=== PATIENT | male | born 1940 | race Caucasian/White ===

== ENCOUNTER 2017-01-07 08:40 | Inpatient (IN) ==
[2017-01-07] MEDS ORDERED: ENOXAPARIN 100 MG/ML SYRINGE SUBCUT STA (08:54)
[2017-01-07] MEDS ORDERED: ASPIRIN 325 MG TABLET PO STA (08:54)
--- NOTE | 2017-01-07 08:58 | EKG Report ---
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
--- NOTE | 2017-01-07 09:20 | XRay Report ---
Portable chest Exam date: 01/07/2017 8:54 AM Indication: Shortness of breath, cough Comparison: October 17, 2015 Findings: Cardiomediastinal contours are stable with sternotomy wires and midline. Coarsened interstitial markings, no superimposed consolidative or congestive process. No acute osseous abnormalities. Visualized upper abdomen demonstrates no acute pathology. Impression: No acute cardiopulmonary findings PROCEDURE INTERPRETED AT [facility] DEPARTMENT OF RADIOLOGY Final Report Signed by: Bc Figueroa
[2017-01-07 09:21] LABS: Basophils % 0.7 % (0.0-0.8); Eosinophils # 0.1 10*3/uL (0.0-0.87); Eosinophils % 1.9 % (0.00-10.9); Hematocrit 31.7 VOL% (42.0-52.0); Hemoglobin 10.3 GM/DL (14.0-18.0); Immature Granulocytes % 0.5 %; Immature Granulocytes Absolute 0.02 #; Lymphocytes # 1.1 10*3/uL (1.4-4.0); Lymphocytes % 25.6 % (21.2-54.2); Mean Corpuscular HGB Conc 32.5 GM/DL (32-36); Mean Corpuscular Hemoglobin 26 PG (27-34); Mean Corpuscular Volume 79.8 FL (87-102); Mean Platelet Volume 10.5 FL (9.6-12.0); Monocytes # 0.4 10*3/uL (0.11-0.8); Monocytes % 9.1 % (1.7-12.7); Neutrophils # 2.7 10*3/uL (1.4-7.4); Neutrophils % 62.2 % (38.7-73.9); Red Blood Count 3.97 MC/CUMM (3.8-5.5); Red Cell Distribution Width 15.6 % (9.3-17.3); White Blood Count 4.3 T/CUMM (4-12)
[2017-01-07 09:23] LABS: Platelet Count 77 T/CUMM (130-400)
[2017-01-07] MEDS ORDERED: ACETAMINOPHEN 325 MG TABLET PO PRN (09:38)
[2017-01-07] MEDS ORDERED: BISACODYL 5 MG TABLET PO PRN (09:38)
[2017-01-07] MEDS ORDERED: MAGNESIUM SULF RIDER 2 GM in PREMIX 1 EACH IV PRN (09:38)
[2017-01-07 09:43] LABS: Hypochromasia 1+; Microcytosis 1+
[2017-01-07 09:44] LABS: Ovalocytes Few; Platelet Estimate Decreased
[2017-01-07] MEDS ORDERED: ENOXAPARIN 100 MG/ML SYRINGE SUBCUT ONE (09:47)
[2017-01-07] MEDS ORDERED: ASPIRIN 325 MG TABLET ONE (09:47)
[2017-01-07 09:56] LABS: Albumin 3.1 G/DL (3.4-5.0); Bilirubin,Total 0.4 MG/DL (0.2-1.0); Calcium 8.2 MG/DL (8.5-10.1); Magnesium 2.3 MG/DL (1.8-2.4); Osmolality,Calculated 286.7 MOS/KG (273-304); Total Protein 6.3 G/DL (6.4-8.3)
[2017-01-07] MEDS ORDERED: METOPROLOL SUCCINATE XL 50 MG TABLET PO SCH (10:00)
[2017-01-07] MEDS ORDERED: ASPIRIN EC 325 MG TABLET PO SCH (10:00)
[2017-01-07 10:05] LABS: INR 1.1
--- NOTE | 2017-01-07 10:08 | Emergency Department Note ---
Violet Doss Brittany, am scribing for, and in the presence of, Pablo Anaya MD 09:09. Héctor Doss Phillip K, MD, personally performed the services described in this documentation, ascribed by Mirlande Lazo in my presence, and it is both accurate and complete . Arrival - Arrival Chief Complaint: Chest Pain Stated Complaint: chest pain radiating down left arm ED Nursing Triage Note: c/o sharp pain in lt chest going into lt shoulder onset friday. states its getting to where his nitros dont help any more Mode of Arrival: Wheelchair Limitations: No Limitations Source: Patient - History of Present Illness HPI Narrative: This is a 76 y/o white male,who presents to the ED with c/o CP which started earlier this morning. He states the chest pain is to the left sided chest. He describes the chest pain as a sharp pain. He notes the chest pain radiates into his left shoulder. He denies any vomiting or dyspnea but notes nausea and diaphoresis. He states he took Nitro x 3 which did not help. He states he normally takes a ASA but has not today. He states deeply breathing makes the chest pain worse. His sander setter is Dr. Hummel. He notes a dry cough as well. Pt has no other complaints/pain in the ED at this time. Pt has a PMHx of CAD, HTN, CA, CVA, IDDM, RA, cerebrovascular disease, dysliipidemia, and GOUT. Pt has had a triple bypass, cardiac cath with stents, eye surgery, hernia repair, spinal surgery, orthopedic surgery, kidney stents, and cystoscopy. Pt has a family medical Hx of cancer, diabetes, HTN, and stroke. Pt denies a social Hx. Onset (ago): day(s) (Started 4 days ago) Consistency: constant Severity: moderate Quality: sharp Allergies/Adverse Reactions: Allergies Allergy/AdvReac Type Severity Reaction Status Date / Time Penicillins Allergy Severe Swelling Verified 07/24/15 07:08 of Lip/Tongue/Throat Home Medications: Home Medications Medication Instructions Recorded Confirmed Type Aspirin [Ecotrin] 81 mg PO DAILY 05/03/15 10/18/15 History Citalopram [CeleXA] 30 mg PO DAILY 05/03/15 10/18/15 History Cyanocobalamin Inj [Vitamin B12 1,000 mcg IM Q30D 05/03/15 10/17/15 History Inj] Docusate Sodium Cap [Colace Cap] 100 mg PO DAILY 05/03/15 10/18/15 History Gabapentin Cap/Tab [Neurontin 600 mg PO TID 05/03/15 10/18/15 History Cap/Tab] Magnesium Oxide 400 mg PO BID 05/03/15 10/18/15 History Mirtazapine [Remeron] 30 mg PO BEDTIME 05/03/15 10/18/15 History Oxycodone HCl/Acetaminophen 1 each PO TID PRN 05/03/15 10/17/15 History [Percocet 10-325 mg Tablet] Rosuvastatin [Crestor] 20 mg PO BEDTIME 05/03/15 10/18/15 History Zinc 50 mg PO BEDTIME 05/03/15 10/18/15 History oxyCODONE ER [OxyCONTIN] 10 mg PO Q12HR 05/03/15 10/18/15 History tiZANidine [Zanaflex] 4 mg PO BID PRN 05/03/15 10/18/15 History Cetirizine Tab [ZyrTEC Tab] 10 mg PO DAILY PRN 05/25/15 10/17/15 History Fluticasone 50 Mcg Nasal [place] 2 spray BOTH NARES DIRECTED 05/25/15 10/17/15 History [Flonase Nasal [place]] Insulin Regular [HumuLIN R] 1 unit SUBCUT Q6H PRN 05/25/15 10/17/15 History Meclizine [Antivert] 25 mg PO QID PRN 05/25/15 10/17/15 History Nitroglycerin Sl Tab [Nitrostat] 0.4 mg SL Q5M PRN 05/25/15 10/17/15 History Pantoprazole Tab [Protonix Tab] 40 mg PO DAILY 05/25/15 10/18/15 History Promethazine Tab [Phenergan Tab] 25 mg PO Q4H PRN 05/25/15 10/17/15 History Apixaban [Eliquis] 5 mg PO BID 07/19/15 10/18/15 History Diltiazem Tab [Cardizem Tab] 1 tablet PO BID W/MEALS 07/19/15 10/18/15 History Insulin Glargine,Hum.rec.anlog 25 units SUBCUT BEDTIME 07/19/15 10/17/15 History [Lantus SoloStar] Insulin NPH Hum/Reg Insulin Hm 30 unit SUBCUT QPM 07/19/15 10/17/15 History [NovoLIN 70/30] Insulin NPH Hum/Reg Insulin Hm 55 unit SUBCUT QAM 07/19/15 10/17/15 History [NovoLIN 70/30] Metoprolol Tartrate Tab [Lopressor 50 mg PO BID 07/19/15 10/18/15 History Tab] Ondansetron [Ondansetron Odt] 4 mg PO DIRECTED 07/19/15 10/17/15 History Ranolazine [Ranexa] 500 mg PO BID 07/19/15 10/18/15 History HYDROcodone/ACETAMIN 7.5-325 1 - 2 tablet PO Q4H PRN #30 tablet 07/24/15 Rx [[place] 7.5-325] Oxybutynin [Ditropan] 5 mg PO BID 10/18/15 10/18/15 History Sennosides [Senna] 8.6 mg PO DAILY PRN 10/18/15 10/18/15 History clonazePAM [Clonazepam] 1 mg PO TID PRN 10/18/15 10/18/15 History Review of System - Review of System 12 point system: reviewed and no additional remarkable complaints except as stated - Review of System Constitutional: Present: diaphoresis Respiratory: Present: cough Cardiovascular: Present: chest pain. Absent: dyspnea on exertion Gastrointestinal: Present: nausea. Absent: vomiting Medical,Surgical,& Family Hx - Medical History Cardio: History of: Cardiac Dysrhythmia (paroxysmal atrial fibrillation), Cerebrovascular Disease, CAD, Hypertension, [place], Cardiovascular Problems (TRIPLE BYPASS DR KM HUMMEL) Psychological: History of: Anxiety Disorders Neurology: History of: Cerebrovascular Accident (), Peripheral Neuropathy No history of: Seizures HEENT: History of: Eye Problem (GLASSES), Dental Problems (FULL SET) Endocrine: History of: Diabetes Mellitus (IDDM), Dyslipidemia Rheumatology: History of;: Gout, Rheumatoid Arthritis (RIGHT KNEE) Respiratory: History of: Obstructive Sleep Apnea (CPAP) Comment Only: Respiratory Problems (Pt has CPAP AT HOME BUT DOES NOT USE IT VERY MUCH) Genitourinary: History of: Kidney Stones Gastrointestinal: History of: GERD Musculoskeletal: History of: Back/Neck Problems Hematology: History of: Bleeding Problems (PT TAKES ELIQUIS) - Surgical History Cardiac Surgeries: Sugical HX of: Cardiac Catheterization, Cardiac Surgery HEENT Surgeries: Surgical HX of: Eye Surgery (BILATERAL CATARACT SURGERY) Abdominal Surgeries: Surgical HX of: Hernia Repair Reproductive Surgeries: Surgical HX of;: Cystoscopy Orthopedic Surgeries: Surgical HX of;: Implanted Devices (HEART STENT, KIDNEY STENT), Orthopedic Surgery (CARPAL TUNNEL), Spinal Surgery (LOWER BACK SURGERY, INJECTIONS WITH DR SHEIKH) - Family History Family History: Reports;: Family Cancer (FATHER), Family Diabetes (BROTHER), Family Hypertension (BROTHER), Family Stroke (FATHER TIA) Denies;: Family Heart Disease - Social History Smoking Status: Never smoker Frequency of Alcohol Use: None Type of Drug Use: None Exam Vital Signs: Vital Signs Temperature 97.8 F 01/07/17 08:43 Pulse Rate 71 01/07/17 09:50 Respiratory Rate 20 01/07/17 09:50 Blood Pressure 92/52 01/07/17 09:50 O2 Sat by Pulse Oximetry 98 01/07/17 09:50 - General General appearance: alert, in no apparent distress - Head Head exam: Present: atraumatic, normocephalic, normal inspection - Eye Eye exam: Present: PERRL, EOMI, other (Pale conjuntvia) - ENT ENT exam: Present: mucous membranes dry - Neck Neck exam: Present: normal inspection, full ROM, trachea midline. Absent: tenderness - Chest Chest inspection: Present: normal inspection, symmetric chest wall rise. Absent : tenderness - Respiratory Respiratory exam: Present: normal lung sounds bilaterally. Absent: respiratory distress - Cardiovascular Cardiovascular exam: Present: regular rate, normal rhythm, normal heart sounds. Absent: murmur, rubs, gallop, clicks, JVD - Abdominal Exam Abdominal exam: Present: soft, normal bowel sounds. Absent: distention, tenderness, guarding, rebound, rigidity - Rectal Exam Rectal exam: Present: deferred - Extremities Exam Extremities exam: Present: normal inspection, full ROM, normal capillary refill. Absent: tenderness, pedal edema, joint swelling, calf tenderness - Back Exam Back exam: Present: normal inspection, full ROM. Absent: tenderness, muscle spasm, rashes - Neurological Exam Neurological exam: Present: alert, oriented X3, CN II-XII intact. Absent: motor sensory deficit - Psychiatric Psychiatric exam: Present: normal affect, normal mood. Absent: depressed, agitated, anxious, flat affect, manic - Skin Skin exam: Present: warm, dry, intact, normal color. Absent: rash, cyanosis, diaphoresis, erythema, pallor, mottled Results - Labs CBC & BMP: 01/07/17 09:09 01/07/17 09:09 Lab Results: I have reviewed the patients labs Labs: Laboratory Tests 01/07/17 09:09 WBC 4.3 RBC 3.97 Hgb 10.3 L Hct 31.7 L MCV 79.8 L MCH 26 L MCHC 32.5 RDW 15.6 Plt Count 77 L MPV 10.5 Neut % (Auto) 62.2 Lymph % (Auto) 25.6 [place] % (Auto) 9.1 Eos % (Auto) 1.9 Baso % (Auto) 0.7 Neut # (Auto) 2.7 Lymph # (Auto) 1.1 L [place] # (Auto) 0.4 Eos # (Auto) 0.1 Baso # (Auto) 0.0 Immature Gran % 0.5 Nucleated RBC % 0.0 Immature Gran # 0.02 Nucleated RBCs # 0.00 Immature Plt Fraction 0.0 Laboratory Tests 01/07/17 01/07/17 01/07/17 09:09 09:09 09:09 Platelet Estimate Decreased Hypochromasia 1+ Microcytosis 1+ Ovalocytes Few Sodium 138 Potassium 4.0 Chloride 103 Carbon Dioxide 31 Anion Gap 8.0 BUN 26 H Creatinine 1.90 H GFR Calculation 40 BUN/Creatinine Ratio 13.00 Glucose 217 H Calculated Osmolality 286.7 Calcium 8.2 L Magnesium 2.3 Total Bilirubin 0.40 AST 31 ALT 14 L Alkaline Phosphatase 71 Troponin I 2.300 H Total Protein 6.3 L Albumin 3.1 L Globulin 3.2 Albumin/Globulin Ratio 0.9 L - Diagnostic Findings Procedure: Chest x-ray: report reviewed by me (Nothing acute. ) Disposition Clinical Impression: Non-ST elevation CA (NSTEMI) Case discussed with: patient
[2017-01-07] MEDS ORDERED: LIDOCAINE 1%/EPI INJ 20 ML VIAL ONE (10:13)
[2017-01-07] MEDS ORDERED: HEPARIN/NACL 0.9% 2 UNITS/ML 1,000 ML IV ONE (10:13)
[2017-01-07 10:14] LABS: Risk Ratio 3.97
--- NOTE | 2017-01-07 10:25 | Cardiology History & Physical ---
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 Assessment and plan: SEE PLAN OF CARE LISTED BELOW Current Visit: Yes (4) Anemia Status: Chronic Assessment and plan: SEE PLAN OF CARE LISTED BELOW Current Visit: Yes (5) Thrombocytopenia Status: Chronic Assessment and plan: SEE PLAN OF CARE LISTED BELOW Current Visit: Yes (6) Essential hypertension Status: Chronic Assessment and plan: SEE PLAN OF CARE LISTED BELOW Current Visit: No (7) Coronary artery disease Status: Chronic Assessment and plan: SEE PLAN OF CARE LISTED BELOW Current Visit: No (8) Chronic renal insufficiency, stage III (moderate) Status: Chronic Assessment and plan: SEE PLAN OF CARE LISTED BELOW Current Visit: No (9) Atrial fibrillation Status: Chronic Assessment and plan: SEE PLAN OF CARE LISTED BELOW Current Visit: No (10) Non-ST elevation (NSTEMI) myocardial infarction Status: Acute Assessment and plan: SEE PLAN OF CARE LISTED BELOW Current Visit: Yes History of Present Illness Chief complaint: Chest pain, known CAD 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 DOHERTY Patient is being seen in the emergency department Mr. Oliver, 76WM, with risk factors significant for: age, known CAD (S/P CABG 3 several years ago, report unavailable), hypertension, dyslipidemia, diabetes, CVA, sedentary lifestyle. History of atrial fibrillation for which he takes Eliquis for stroke prevention. Presented to the ED of [facility] January 07, 2017 with complaints of chest pain. Described chest pain as sharp, located in the left side radiating into his left shoulder. This has been occurring intermittently overnight, lasting approximately 2-3 minutes and is not associated with nausea, vomiting, diaphoresis or dyspnea. Can identify no aggravating factors and nitroglycerin did improve the discomfort. Rates the discomfort as a 7 on a scale of 10 at its worst, currently chest pain-free. Upon evaluation in the ER, patient was noted to have ST depression laterally with a right bundle branch block, troponin is 2.3. Creatinine is 1.9, patient is anemic with hemoglobin hematocrit of 10.3 and 31.7 respectively. Platelet count 77. Upon review, patient has a long-standing history of thrombocytopenia her labs. Will further investigate his knee during hospital stay. Dr. Asher has seen and evaluated the patient believes patient needs cardiac catheterization. At this time, patient will be kept without food or drink and we will prepare him for heart catheterization today. IMPRESSION/PLAN: 1. NSTEMI - patient has received aspirin, Lovenox, beta-blockade, nitroglycerin. Continue lipid-lowering agent. Suspect he has not been on an MARLENE inhibitor in the past for fear of worsening renal insufficiency. 2. KNOWN CAD STATUS POST CABG 3 - unfortunately, cannot access prior heart catheterization reports or CABG report. 3. HYPERTENSION - continue beta-blockade. Will adjust medications accordingly during the hospital stay. Unfortunately, cannot tolerate an MARLENE inhibitor due to fear of worsening his renal insufficiency. 4. DYSLIPIDEMIA - LDL 74. Continue Crestor. 5. DIABETES - sliding scale insulin and holding metformin should patient need cardiac catheterization 6. ATRIAL FIBRILLATION - rate controlled. Holding Eliquis at this point but he did have a dose last evening 7. HIGH RISK MEDICATION (ELIQUIS) - holding this morning's Eliquis for [facility] today 8. ANEMIA - anemia profile. Stool for occult blood. Follow CBC 9. THROMBOCYTOPENIA - Long standing history as listed in labs in [facility]. 10. CKD, STAGE III - follow BMP daily. Avoid MARLENE for fear of worsening renal insufficiency. Home Medications Medication Instructions Recorded Confirmed Type Aspirin [Ecotrin] 81 mg PO DAILY 05/03/15 10/18/15 History Citalopram [CeleXA] 30 mg PO DAILY 05/03/15 10/18/15 History Cyanocobalamin Inj [Vitamin B12 1,000 mcg IM Q30D 05/03/15 10/17/15 History Inj] Docusate Sodium Cap [Colace Cap] 100 mg PO DAILY 05/03/15 10/18/15 History Gabapentin Cap/Tab [Neurontin 600 mg PO TID 05/03/15 10/18/15 History Cap/Tab] Magnesium Oxide 400 mg PO BID 05/03/15 10/18/15 History Mirtazapine [Remeron] 30 mg PO BEDTIME 05/03/15 10/18/15 History Oxycodone HCl/Acetaminophen 1 each PO TID PRN 05/03/15 10/17/15 History [Percocet 10-325 mg Tablet] Rosuvastatin [Crestor] 20 mg PO BEDTIME 05/03/15 10/18/15 History Zinc 50 mg PO BEDTIME 05/03/15 10/18/15 History oxyCODONE ER [OxyCONTIN] 10 mg PO Q12HR 05/03/15 10/18/15 History tiZANidine [Zanaflex] 4 mg PO BID PRN 05/03/15 10/18/15 History Cetirizine Tab [ZyrTEC Tab] 10 mg PO DAILY PRN 05/25/15 10/17/15 History Fluticasone 50 Mcg Nasal [place] 2 spray BOTH NARES DIRECTED 05/25/15 10/17/15 History [Flonase Nasal [place]] Insulin Regular [HumuLIN R] 1 unit SUBCUT Q6H PRN 05/25/15 10/17/15 History Meclizine [Antivert] 25 mg PO QID PRN 05/25/15 10/17/15 History Nitroglycerin Sl Tab [Nitrostat] 0.4 mg SL Q5M PRN 05/25/15 10/17/15 History Pantoprazole Tab [Protonix Tab] 40 mg PO DAILY 05/25/15 10/18/15 History Promethazine Tab [Phenergan Tab] 25 mg PO Q4H PRN 05/25/15 10/17/15 History Apixaban [Eliquis] 5 mg PO BID 07/19/15 10/18/15 History Diltiazem Tab [Cardizem Tab] 1 tablet PO BID W/MEALS 07/19/15 10/18/15 History Insulin Glargine,Hum.rec.anlog 25 units SUBCUT BEDTIME 07/19/15 10/17/15 History [Lantus SoloStar] Insulin NPH Hum/Reg Insulin Hm 30 unit SUBCUT QPM 07/19/15 10/17/15 History [NovoLIN 70/30] Insulin NPH Hum/Reg Insulin Hm 55 unit SUBCUT QAM 07/19/15 10/17/15 History [NovoLIN 70/30] Metoprolol Tartrate Tab [Lopressor 50 mg PO BID 07/19/15 10/18/15 History Tab] Ondansetron [Ondansetron Odt] 4 mg PO DIRECTED 07/19/15 10/17/15 History Ranolazine [Ranexa] 500 mg PO BID 07/19/15 10/18/15 History HYDROcodone/ACETAMIN 7.5-325 1 - 2 tablet PO Q4H PRN #30 tablet 07/24/15 Rx [[place] 7.5-325] Oxybutynin [Ditropan] 5 mg PO BID 10/18/15 10/18/15 History Sennosides [Senna] 8.6 mg PO DAILY PRN 10/18/15 10/18/15 History clonazePAM [Clonazepam] 1 mg PO TID PRN 10/18/15 10/18/15 History Allergies Allergy/AdvReac Type Severity Reaction Status Date / Time Penicillins Allergy Severe Swelling Verified 07/24/15 07:08 of Lip/Tongue/Throat Review of systems: REVIEW OF SYSTEMS: - Constitutional Constitutional: Present: Fatigue. Absent: syncope, anorexia, night sweats - EENT Eyes: Absent: blurry vision, loss of vision, diplopia Ears: Absent: decreased hearing, ear pain, ear discharge - Cardiovascular Cardiovascular: Present: chest pain with exertion and at rest. Chronic dyspnea on exertion. Denies edema, palpitations. Absent: chest pain with deep breath, claudication - Respiratory Respiratory: Present: [place], denies cough. Absent: wheezing, hemoptysis, change in phlegm color - Gastrointestinal Gastrointestinal: Denies: constipation. Absent: abdominal pain, hematemesis, hematochezia, melena, change in bowel habits, nausea - Genitourinary Genitourinary: Absent: difficulty urinating, dysuria, urinary hesitancy, flank pain - Musculoskeletal Musculoskeletal: Present: back pain Absent: joint swelling, muscle cramps, muscle weakness - Neurological Neurological: Present: normal gait without frequent falls. Absent: dizziness, hemiparesis - Psychiatric Psychiatric: Absent: anxiety, depression, difficulty concentrating - Endocrine Endocrine: Present: fatigue. Absent: cold intolerance, heat intolerance, polyuria, polyphagia, polydipsia - Hematologic/Lymphatic Hematologic/Lymphatic: Present: easy bruising. Absent: easy bleeding -Integumentary Integumentary: Absent: lesions, rashes, skin breakdown Medical,Surgical,& Family Hx - Medical History Cardio: History of: Cardiac Dysrhythmia (paroxysmal atrial fibrillation), Cerebrovascular Disease, CAD, Hypertension, [place], Cardiovascular Problems (TRIPLE BYPASS DR KM DOHERTY) Psychological: History of: Anxiety Disorders Neurology: History of: Cerebrovascular Accident (), Peripheral Neuropathy No history of: Seizures HEENT: History of: Eye Problem (GLASSES), Dental Problems (FULL SET) Endocrine: History of: Diabetes Mellitus (IDDM), Dyslipidemia Rheumatology: History of;: Gout, Rheumatoid Arthritis (RIGHT KNEE) Respiratory: History of: Obstructive Sleep Apnea (CPAP) Comment Only: Respiratory Problems (Pt has CPAP AT HOME BUT DOES NOT USE IT VERY MUCH) Genitourinary: History of: Kidney Stones Gastrointestinal: History of: GERD Musculoskeletal: History of: Back/Neck Problems Hematology: History of: Bleeding Problems (PT TAKES ELIQUIS) - Surgical History Cardiac Surgeries: Sugical HX of: Cardiac Catheterization, Cardiac Surgery HEENT Surgeries: Surgical HX of: Eye Surgery (BILATERAL CATARACT SURGERY) Abdominal Surgeries: Surgical HX of: Hernia Repair Reproductive Surgeries: Surgical HX of;: Cystoscopy Orthopedic Surgeries: Surgical HX of;: Implanted Devices (HEART STENT, KIDNEY STENT), Orthopedic Surgery (CARPAL TUNNEL), Spinal Surgery (LOWER BACK SURGERY, INJECTIONS WITH DR SHEIKH) - Family History Family History: Reports;: Family Cancer (FATHER), Family Diabetes (BROTHER), Family Hypertension (BROTHER), Family Stroke (FATHER TIA) Denies;: Family Heart Disease - Social History Smoking Status: Never smoker Have you smoked in the last 12 months: No Frequency of Alcohol Use: None Type of Drug Use: None Cardiology Physical Exam - Constitutional Vitals: Vital Signs Temp Pulse Resp BP Pulse Ox 97.8 F 71 20 92/52 98 01/07/17 08:43 01/07/17 09:50 01/07/17 09:50 01/07/17 09:50 01/07/17 09:50 Intake and Output 01/06/17 01/07/17 01/07/17 23:59 07:59 15:59 Other: Weight 90.718 kg Patient Weight 01/07/17 23:59 Weight 90.718 kg Exam: General: [Appears well with no apparent distress.] [Pleasant and cooperative. ] [Appears comfortable.] HEENT: [PERRL, normocephalic, atraumatic. Mucous membranes moist. No jaundice noted. Conjunctiva moist and clear, sclerae anicteric] Neck: No JVD/HJR, no thyromegaly or lymphadenopathy noted. No carotid bruit appreciated Cardiac: [Regular rate and rhythm.] [No murmur rub or gallop.] Lungs: [Clear to auscultation without accessory muscle use to assist the respiratory pattern.] Oxygen in use via nasal cannula Abdomen: Soft, bowel sounds normoactive. Nontender and nondistended. No abdominal bruit or thrill noted. No masses noted. Musculoskeletal: No fluid collection. Decreased range of motion is noted. Extremities: No clubbing, cyanosis noted. [ No edema noted.] Upper extremity pulses 2+. Lower extremity pulses 2+. Capillary refill less than 3 seconds. Skin: No unusual lesions or rashes. No skin breakdown appreciated. Neuro: Awake, alert and oriented 3. Moves all extremities well without hemiparesis or paralysis. No essential tremor is appreciated. Result/EKG - Labs CBC & BMP: 01/07/17 09:09 01/07/17 09:09 Lab Results: I have reviewed the past 24 hour labs Labs: Laboratory Results - last 24 hr 01/07/17 01/07/17 01/07/17 09:09 09:09 09:09 WBC 4.3 RBC 3.97 Hgb 10.3 L Hct 31.7 L MCV 79.8 L MCH 26 L MCHC 32.5 RDW 15.6 Plt Count 77 L MPV 10.5 Neut % (Auto) 62.2 Lymph % (Auto) 25.6 [place] % (Auto) 9.1 Eos % (Auto) 1.9 Baso % (Auto) 0.7 Neut # (Auto) 2.7 Lymph # (Auto) 1.1 L [place] # (Auto) 0.4 Eos # (Auto) 0.1 Baso # (Auto) 0.0 Immature Gran % 0.5 Nucleated RBC % 0.0 Immature Gran # 0.02 Nucleated RBCs # 0.00 Platelet Estimate Decreased Immature Plt Fraction 0.0 Hypochromasia 1+ Microcytosis 1+ Ovalocytes Few INR PT Patient/Control Mix Sodium 138 Potassium 4.0 Chloride 103 Carbon Dioxide 31 Anion Gap 8.0 BUN 26 H Creatinine 1.90 H GFR Calculation 40 BUN/Creatinine Ratio 13.00 Glucose 217 H Calculated Osmolality 286.7 Calcium 8.2 L Magnesium 2.3 Total Bilirubin 0.40 AST 31 ALT 14 L Alkaline Phosphatase 71 Troponin I B-Natriuretic Peptide 1136 H Total Protein 6.3 L Albumin 3.1 L Globulin 3.2 Albumin/Globulin Ratio 0.9 L Triglycerides Cholesterol LDL Cholesterol VLDL Cholesterol HDL Cholesterol Heart Disease Risk Ratio 01/07/17 01/07/17 01/07/17 09:09 09:09 09:09 WBC RBC Hgb Hct MCV MCH MCHC RDW Plt Count MPV Neut % (Auto) Lymph % (Auto) [place] % (Auto) Eos % (Auto) Baso % (Auto) Neut # (Auto) Lymph # (Auto) [place] # (Auto) Eos # (Auto) Baso # (Auto) Immature Gran % Nucleated RBC % Immature Gran # Nucleated RBCs # Platelet Estimate Immature Plt Fraction Hypochromasia Microcytosis Ovalocytes INR 1.1 PT Patient/Control Mix 12.0 Sodium Potassium Chloride Carbon Dioxide Anion Gap BUN Creatinine GFR Calculation BUN/Creatinine Ratio Glucose Calculated Osmolality Calcium Magnesium Total Bilirubin AST ALT Alkaline Phosphatase Troponin I 2.300 H B-Natriuretic Peptide Total Protein Albumin Globulin Albumin/Globulin Ratio Triglycerides 130 Cholesterol 131 LDL Cholesterol 74.0 VLDL Cholesterol 26.0 HDL Cholesterol 33 L Heart Disease Risk Ratio 3.97 - Diagnostic Findings Procedure: Chest x-ray: report reviewed by me - EKG EKG results: interpreted by me EKG shows: sinus rhythm (Right bundle branch block)
[2017-01-07] MEDS ORDERED: HEPARIN/NACL 0.9% 2 UNITS/ML 500 ML IV ONE (10:50)
[2017-01-07] MEDS ORDERED: fentaNYL 100 MCG/2 ML VIAL ONE (10:50)
[2017-01-07] MEDS ORDERED: MIDAZOLAM 2 MG/2 ML VIAL ONE (10:50)
--- NOTE | 2017-01-07 10:51 | History and Physical Update ---
Sedation H&P Update - History and Physical H&P was reviewed, the patient examined and there: are no changes in the patients condition since last H&P was completed. - Sedation Plan for Sedation: moderate Patient Consent: Procedure disscussed with patient and patinet has consented., Risks and benefits were discussed with patient,including infection,, bleeding, injury to surrounding structures, seizure, temporary nerve, Patient understands and accepts potential risks/benefits and agrees to, proceed. ASA Class: IV Airway Assessment: Class III: Soft palate, base of uvula visible
--- NOTE | 2017-01-07 11:51 | Cardiac Catheterization ---
Date of Procedure:: 01/07/17 Pre-op Diagnosis: Patient with elevated troponin history of chest pain since 3 days ago. His pain is atypical but is any EKG changes and for that reason he is brought for diagnostic evaluation and intervention if indicated. Post-op diagnosis: same Procedure: Procedures performed: Left heart catheterization Coronary arteriography Temporary pacemaker placed via the right femoral vein Vein graft injection RODNEY graft injection Left ventriculography [Right] femoral sheath angiography Mynx closure femoral arteriotomy site After obtaining informed consent the patient was brought to the catheterization lab where the [right] groin was prepped and draped in the usual sterile manner. After intravenous sedation and local anesthesia a needle stick was made to the right femoral artery and a [6 [place] sheath] was positioned without difficulty. A left heart catheterization was undertaken using first a Shoaib left diagnostic catheter. The catheter was advanced under fluoroscopy over a guidewire and positioned with its tip in the ostium of the left main coronary artery. Multiple angiograms were obtained of the left coronary artery in multiple views. After adequate angiogram to left coronary obtain this catheter was withdrawn and an AMRM right coronary catheter was advanced over a guidewire under fluoroscopic control where angiography of the right coronary artery was undertaken in multiple views. Prior to obtaining angiograms with manipulation the right coronary catheter the patient went into sustained asystole with P waves noted but no QRS complex. Patient was noted to have spontaneous resumption of his rhythm. At this point we elected to place a temporary pacing wire via the right femoral vein. Pacing wire was placed with its tip in the right ventricular apex and placed in an output of 10 mA rate of 50. Threshold was less than 1 mA. After adequate angiograms of the right coronary artery were obtained this catheter was used to opacify the right coronary graft ostium , the circumflex graft, and the RODNEY graft. Again all catheter be placed as were done under fluoroscopic control. After completion of adequate angiograms of these vessels this catheter was withdrawn. A pigtail ventriculographic catheter was advanced over a guidewire under fluoroscopic control to the ascending aorta where it was advanced across the aortic valve and intraventricular hemodynamics were measured. A ventriculogram was obtained in the FERRER projection and afterward a pullback was obtained from the ventricle to the aorta under hemodynamic monitoring and removed. At this point the patient underwent right femoral sheath angiography which demonstrated anatomy appropriate for Mynx closure. This was performed without difficulty and good hemostasis was obtained. The patient then was transferred back to the [facility] having suffered no significant immediate complications. Hemodynamics: Please see the accompanying data sheet Coronary arteriography: Left coronary artery: The left main coronary artery is 99% occluded. There are proximal branches of the left coronary system which are noted to fill. These are small branches. The LAD is completely occluded in its proximal portion. The circumflex coronary is completely occluded in its proximal portion. Right coronary artery: The right coronary artery is completely occluded in its midportion. There is a fairly small conus branch which arises from the proximal right which has an ostial 90% stenosis. Right coronary vein graft injection: Right coronary vein graft is completely occluded at its origin Circumflex vein graft: Circumflex vein graft is widely patent with diffuse irregularities but no significant flow-limiting stenosis can be identified. The distal circumflex as well as the distal anastomosis is noted to be free of significant obstructing lesions. There is fairly extensive collateralization from the circumflex to the right coronary artery. The right coronary fills the PDA as well as posterolateral. Posterolateral appears to be occluded beyond the collateralized segment. The right coronary fills retrograde back to the area of occlusion. RODNEY graft: After injection into the RODNEY graft it appears to be free of significant obstructing lesions. It anastomosis to the proximal LAD and is free of significant stenosis. The distal anastomosis is free of significant occlusive disease. The distal LAD is noted to be diffusely diseased with several areas of 50-70% stenosis at the apical portion of the LAD has an area of 95% stenosis. Left ventriculography: After injection of contrast into the left ventricle is noted to be mildly enlarged with diffuse moderate to severe LV hypokinesis. Overall ejection fraction measures in the 35% range. Mitral and aortic structures appear normal by ventriculography. Anterior hypokinesis is more marked than inferior. Right femoral sheath angiography: After injection of contrast in the right femoral arterial sheath it is noted be of normal caliber and enters above the bifurcation. The distal iliac, common femoral and bifurcation appear to be free of significant obstructing lesions based on this limited angiographic study. 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 5: Ischemic cardiomyopathy ejection fraction 35% 6: Minx closure right femoral arteriotomy site Discussion recommendations: The patient presents with chest discomfort. He has an elevation of his troponin into the 2.0 range. The only finding on cardiac catheterization which looks recent is occlusion of the posterior lateral branch of the right coronary artery. That is likely the cause of his recent event. It is not approachable with percutaneous coronary intervention. The patient had an episode of asystole which I think was related to stimulation of the bundle with the right coronary catheter. He recovered his rhythm spontaneously after a prolonged asystolic episode. He now has a temporary pacemaker so that we can observe this overnight then likely we will discontinue the pacemaker in the morning if he has no further rhythm issues. Our findings have been reviewed with the patient and with his family. Surgeon / Physician: Jason Asher Estimated blood loss: minimal Specimens: none sent Condition: stable - Medications / Follow-up
[2017-01-07] MEDS ORDERED: NITROGLYCERIN SL 0.4 MG TABLET SL PRN (11:57)
[2017-01-07] MEDS ORDERED: SODIUM CHLORIDE 0.45% 1,000 ML IV SCH (12:00)
--- NOTE | 2017-01-07 12:13 | EKG Report ---
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
[2017-01-07 12:46] LABS: Basophils % 0.7 % (0.0-0.8); Eosinophils # 0.1 10*3/uL (0.0-0.87); Eosinophils % 1.8 % (0.00-10.9); Hematocrit 31.5 VOL% (42.0-52.0); Hemoglobin 9.9 GM/DL (14.0-18.0); Immature Granulocytes % 0.2 %; Immature Granulocytes Absolute 0.01 #; Lymphocytes # 1.5 10*3/uL (1.4-4.0); Lymphocytes % 33.5 % (21.2-54.2); Mean Corpuscular HGB Conc 31.4 GM/DL (32-36); Mean Corpuscular Hemoglobin 25 PG (27-34); Monocytes # 0.4 10*3/uL (0.11-0.8); Monocytes % 9.1 % (1.7-12.7); Neutrophils # 2.4 10*3/uL (1.4-7.4); Neutrophils % 54.7 % (38.7-73.9); Red Blood Count 3.89 MC/CUMM (3.8-5.5); Red Cell Distribution Width 15.6 % (9.3-17.3); White Blood Count 4.4 T/CUMM (4-12)
[2017-01-07 12:48] LABS: Platelet Count 71 T/CUMM (130-400)
[2017-01-07] MEDS: PANTOPRAZOLE 40 MG TABLET PO SCH ×2 (13:27→16:09)
[2017-01-07 14:04] LABS: Sedimentation Rate-Westergren 43 MM/HR (0-20)
[2017-01-07 14:25] LABS: Folate > 24.0 NG/ML (5.4-24.0); Vitamin B12 1104 PG/ML (211-911)
[2017-01-07 15:04] LABS: Hypochromasia 1+; Polychromasia Slight
--- NOTE | 2017-01-07 15:13 | EKG Report ---
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
[2017-01-07] MEDS: MORPHINE 2 MG/1 ML SYRINGE IV PRN ×2 (15:50→20:30)
[2017-01-07] MEDS: ONDANSETRON 4 MG/2 ML VIAL IV PRN ×2 (15:55→20:30)
[2017-01-07] MEDS: CLOPIDOGREL 75 MG TABLET PO SCH (16:07)
[2017-01-07 17:27] LABS: Apearance,Urine CLEAR (Clear); Bilirubin,Urine Negative (Negative); Blood, Urine Negative (Negative); Glucose,Urine (UA) 50 mg/dL (Negative); Ketones,Urine Negative (Negative); Nitrite,Urine Negative (Negative); Protein,Urine Negative; RBC,Urine <1 /HPF (0-4); Urine Color Yellow (Yellow); Urine Specific Gravity 1.027 (1.001-1.035); Urine Urobilinogen < 2.0 EU/DL (0.2-1.0); WBC,Urine <1 /HPF (0-6)
[2017-01-07] MEDS: ROSUVASTATIN 20 MG TABLET PO SCH (20:30)
[2017-01-07] MEDS ORDERED: METOPROLOL TARTRATE 50 MG TABLET PO SCH (21:00)
[2017-01-07] MEDS: PROMETHAZINE 25 MG TABLET PO PRN (21:20)
[2017-01-08] MEDS: MORPHINE 2 MG/1 ML SYRINGE IV PRN ×2 (00:15→09:08)
[2017-01-08] MEDS: clonazePAM 0.5 MG TABLET PO SCH ×3 (00:15→20:15)
[2017-01-08] MEDS: PROMETHAZINE 25 MG TABLET PO PRN ×2 (01:15→07:07)
[2017-01-08] MEDS: DILTIAZEM INJ 100 MG in SODIUM CHLORIDE 0.9% 100 ML IV SCH ×2 (03:00→09:07)
[2017-01-08] MEDS ORDERED: DILTIAZEM 100 MG VIAL.ADD IV ONE (03:02)
--- NOTE | 2017-01-08 03:18 | EKG Report ---
Please refer to the EKG image. Final interpretation is pending.
[2017-01-08] MEDS: NITROGLYCERIN 2% OINT 1 INCH/GM PACK TOP SCH ×2 (03:37→03:38)
[2017-01-08 05:10] LABS: Basophils % 0.5 % (0.0-0.8); Eosinophils % 0.3 % (0.00-10.9); Hematocrit 37.2 VOL% (42.0-52.0); Hemoglobin 11.7 GM/DL (14.0-18.0); Immature Granulocytes % 0.3 %; Immature Granulocytes Absolute 0.02 #; Lymphocytes # 0.9 10*3/uL (1.4-4.0); Lymphocytes % 14.3 % (21.2-54.2); Mean Corpuscular HGB Conc 31.5 GM/DL (32-36); Mean Corpuscular Hemoglobin 25 PG (27-34); Mean Corpuscular Volume 80.9 FL (87-102); Mean Platelet Volume 10.4 FL (9.6-12.0); Monocytes # 0.7 10*3/uL (0.11-0.8); Monocytes % 10.4 % (1.7-12.7); Neutrophils # 4.7 10*3/uL (1.4-7.4); Neutrophils % 74.2 % (38.7-73.9)
[2017-01-08 05:15] LABS: Platelet Count 94 T/CUMM (130-400); White Blood Count 6.3 T/CUMM (4-12)
[2017-01-08 06:16] LABS: CKMB % 12.3 %
[2017-01-08 06:38] LABS: Troponin I Only 6.58 NG/ML (0.00-0.045)
[2017-01-08 06:40] LABS: Albumin 3.3 G/DL (3.4-5.0); Bilirubin,Total 0.8 MG/DL (0.2-1.0); Calcium 8.5 MG/DL (8.5-10.1); Magnesium 2.2 MG/DL (1.8-2.4); Osmolality,Calculated 284.1 MOS/KG (273-304); Potassium 4.6 MMOL/L (3.5-5.1); Total Protein 7.2 G/DL (6.4-8.3)
[2017-01-08 06:46] LABS: Risk Ratio 4.11; VLDL CHOLESTEROL 31.8 MG/DL
[2017-01-08] MEDS: ASPIRIN EC 81 MG TABLET PO SCH (09:11)
[2017-01-08] MEDS ORDERED: MECLIZINE 25 MG TABLET PO PRN (09:12)
[2017-01-08] MEDS: METOPROLOL TARTRATE 25 MG TABLET PO SCH ×2 (09:12→20:17)
[2017-01-08] MEDS ORDERED: ONDANSETRON ODT 4 MG TABLET PO PRN (09:12)
[2017-01-08] MEDS: PANTOPRAZOLE 40 MG TABLET PO SCH (09:12)
[2017-01-08] MEDS: LOSARTAN 25 MG TABLET PO SCH (09:12)
[2017-01-08] MEDS: CLOPIDOGREL 75 MG TABLET PO SCH (09:12)
[2017-01-08] MEDS ORDERED: CETIRIZINE 10 MG TABLET PO PRN (09:12)
[2017-01-08] MEDS ORDERED: tiZANidine 4 MG TABLET PO PRN (09:12)
--- NOTE | 2017-01-08 09:13 | Cardiology Progress Note ---
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 Assessment and plan: SEE PLAN OF CARE LISTED BELOW Current Visit: Yes (4) Anemia Status: Chronic Assessment and plan: SEE PLAN OF CARE LISTED BELOW Current Visit: Yes (5) Thrombocytopenia Status: Chronic Assessment and plan: SEE PLAN OF CARE LISTED BELOW Current Visit: Yes (6) Essential hypertension Status: Chronic Assessment and plan: SEE PLAN OF CARE LISTED BELOW Current Visit: No (7) Coronary artery disease Status: Chronic Assessment and plan: SEE PLAN OF CARE LISTED BELOW Current Visit: No (8) Chronic renal insufficiency, stage III (moderate) Status: Chronic Assessment and plan: SEE PLAN OF CARE LISTED BELOW Current Visit: No (9) Atrial fibrillation Status: Chronic Assessment and plan: SEE PLAN OF CARE LISTED BELOW Current Visit: No (10) Non-ST elevation (NSTEMI) myocardial infarction Status: Acute Assessment and plan: SEE PLAN OF CARE LISTED BELOW Current Visit: Yes (11) Asystole Status: Resolved Assessment and plan: SEE PLAN OF CARE LISTED BELOW Current Visit: Yes (12) Ischemic cardiomyopathy Status: Acute Assessment and plan: SEE PLAN OF CARE LISTED BELOW Current Visit: Yes Cardiology - PN: Subj Interval history: 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 Oliver, 76WM, with risk factors significant for: age, known CAD (S /P CABG 3 several years ago, report unavailable), hypertension, dyslipidemia, diabetes, CVA, sedentary lifestyle. History of atrial fibrillation for which he takes Eliquis for stroke prevention. Admitted January 07, 2017 with NSTEMI. He was taken urgently to the cardiac lab where Dr. Asher performed heart catheterization the following noted: CONCLUSIONS: 1: Severe diffuse [place] multivessel coronary artery disease 2: 2 of 3 grafts patent with occlusion of the right coronary vein graft now supplied with good collaterals from the circumflex marginal (via the bypass) to the right coronary artery 3: Distal right coronary disease likely the index event with occlusion of the posterolateral branch 4: Episode of asystole now with a temporary pacemaker for close observation. 5: Ischemic cardiomyopathy ejection fraction 35% 6: Minx closure right femoral arteriotomy site DISCUSSION/RECOMMENDATIONS: The patient presents with chest discomfort. He has an elevation of his troponin into the 2.0 range. The only finding on cardiac catheterization which looks recent is occlusion of the posterior lateral branch of the right coronary artery. That is likely the cause of his recent event. It is not approachable with percutaneous coronary intervention. The patient had an episode of asystole which was thought to be related to stimulation of the bundle with the right coronary catheter. He recovered his rhythm spontaneously after a prolonged asystolic episode. A temporary pacemaker was placed in order to observe this overnight with plans to discontinue pacemaker the following morning. Findings discussed with the patient and with his family. 2016: No additional arrhythmias noted overnight. Dr. Asher plans to remove the temporary pacemaker this morning. Patient is having chronic pain of joints, shoulders and back. No chest pain since intervention occurred. Will reintroduce his multiple narcotics from home immediately to better control his pain. Anemia is stable overnight. Platelet count has improved from 71-94 (long-standing history of thrombocytopenia). Will check another troponin tomorrow morning. Eliquis has been held post cath. We will restart tomorrow. Patient is on IV Cardizem for atrial fibrillation with rapid ventricular response. Rate is much better controlled. I will transition to oral short acting calcium channel nam and wean off IV Cardizem. Presented to the ED of [facility] January 07, 2017 with complaints of chest pain. Described chest pain as sharp, located in the left side radiating into his left shoulder. This has been occurring intermittently overnight, lasting approximately 2-3 minutes and is not associated with nausea, vomiting, diaphoresis or dyspnea. Can identify no aggravating factors and nitroglycerin did improve the discomfort. Rates the discomfort as a 7 on a scale of 10 at its worst, currently chest pain-free. Upon evaluation in the ER, patient was noted to have ST depression laterally with a right bundle branch block, troponin is 2.3. Creatinine is 1.9, patient is anemic with hemoglobin hematocrit of 10.3 and 31.7 respectively. Platelet count 77. Upon review, patient has a long-standing history of thrombocytopenia her labs. Will further investigate his knee during hospital stay. Dr. Asher has seen and evaluated the patient believes patient needs cardiac catheterization. At this time, patient will be kept without food or drink and we will prepare him for heart catheterization today. IMPRESSION/PLAN: 1. NSTEMI - patient is taking Aspirin, Plavix, beta-nam, ARB, Crestor. We will closely watch his renal insufficiency. Troponin in the morning. 2. KNOWN CAD STATUS POST CABG 3 - see heart catheterization report. Continue with appropriate medication regimen listed above. 3. HYPERTENSION - adequately controlled. Adjust medications accordingly during the hospital stay. 4. DYSLIPIDEMIA - LDL 74. Continue Crestor. 5. DIABETES - blood sugar significantly elevated. Will restart home dose of metformin and adjust sliding scale dose until blood sugars better controlled. 6. ATRIAL FIBRILLATION - RVR overnight, now rate controlled. Transitioning from IV Cardizem to oral. Will reincorporate Eliquis 48 hours after heart catheterization. 7. HIGH RISK MEDICATION (ELIQUIS) - we will restart Eliquis 48 hours after heart cath. 8. ANEMIA - iron deficiency anemia. Stool for occult blood. Follow CBC 9. THROMBOCYTOPENIA - Long standing history as listed in labs in [employer]. Continue current plan of care. Labs stable 10. CKD, STAGE III - follow BMP daily. Creatinine actually improved overnight. 11. ASYSTOLE -occurred after intervention thought to be related to stimulation of the bundle with the right coronary catheter. No additional arrhythmias overnight status post temporary pacemaker implantation. Plan to remove temporary pacemaker today 12. ICM - EF 35%. Will continue betablocker, ARB. ardiologist: Dr. cory ABREU TO COMPLETE restarted his multiple narcotic home meds. Generalized pain in back, shoulders and joints. Chronic. NO chest pain. Feeling much better in that regard Echo outpatient as LVEF assessed with [facility] Lasix 40mg IV once today Temp pacer out today Stopped IV Cardizem and started 30mg QID orally Exam (Progress Note) - Constitutional Vitals: Period Temp Pulse Resp BP Sys/Nguyen Pulse Ox Last 24 Hr 97.2 F-97.8 F 71-140 10-34 92-174/51-112 90-100 Exam: General: [Appears well with no apparent distress.] [Pleasant and cooperative. ] [Appears comfortable.] HEENT: [PERRL, normocephalic, atraumatic. Mucous membranes moist. No jaundice noted. Conjunctiva moist and clear, sclerae anicteric] Neck: No obvious JVD/HJR, no thyromegaly or lymphadenopathy noted. No carotid bruit appreciated Cardiac: [Irregularly irregular rhythm, fast rate ] [No obvious murmur rub or gallop.] Lungs: [Clear to auscultation without accessory muscle use to assist the respiratory pattern.] Oxygen in use via nasal cannula Abdomen: Soft, bowel sounds normoactive. Nontender and nondistended. No abdominal bruit or thrill noted. No masses noted. Musculoskeletal: No fluid collection. Decreased range of motion is noted. Extremities: Right groin soft, temporal pacemaker catheters intact. No hematoma. No clubbing, cyanosis noted. [ No edema noted.] Upper extremity pulses 2+. Lower extremity pulses 2+. Capillary refill less than 3 seconds. Skin: No unusual lesions or rashes. No skin breakdown appreciated. Neuro: Awake, alert and oriented 3. Moves all extremities well without hemiparesis or paralysis. No essential tremor is appreciated. Result/EKG - Labs CBC & BMP: 01/08/17 04:23 01/08/17 04:23 Lab Results: I have reviewed the past 24 hour labs Labs: Laboratory Results - last 24 hr 01/07/17 01/07/17 01/07/17 09:09 09:09 09:09 WBC 4.3 RBC 3.97 Hgb 10.3 L Hct 31.7 L MCV 79.8 L MCH 26 L MCHC 32.5 RDW 15.6 Plt Count 77 L MPV 10.5 Neut % (Auto) 62.2 Lymph % (Auto) 25.6 Coffee % (Auto) 9.1 Eos % (Auto) 1.9 Baso % (Auto) 0.7 Neut # (Auto) 2.7 Lymph # (Auto) 1.1 L Coffee # (Auto) 0.4 Eos # (Auto) 0.1 Baso # (Auto) 0.0 Immature Gran % 0.5 Nucleated RBC % 0.0 Immature Gran # 0.02 Nucleated RBCs # 0.00 Platelet Estimate Decreased Immature Plt Fraction 0.0 Polychromasia Hypochromasia 1+ Microcytosis 1+ Ovalocytes Few ESR Westergren Absolute Retic Percent Retic Retic Hgb Equivalent INR PT Patient/Control Mix Sodium 138 Potassium 4.0 Chloride 103 Carbon Dioxide 31 Anion Gap 8.0 BUN 26 H Creatinine 1.90 H GFR Calculation 40 BUN/Creatinine Ratio 13.00 Glucose 217 H POC Glucose Calculated Osmolality 286.7 Calcium 8.2 L Magnesium 2.3 Ferritin Total Bilirubin 0.40 AST 31 ALT 14 L Alkaline Phosphatase 71 Total Creatine Kinase CK-MB (CK-2) CK and CKMB Interp Troponin I B-Natriuretic Peptide 1136 H Total Protein 6.3 L Albumin 3.1 L Globulin 3.2 Albumin/Globulin Ratio 0.9 L Triglycerides Cholesterol LDL Cholesterol VLDL Cholesterol HDL Cholesterol Heart Disease Risk Ratio Vitamin B12 Folate Urine Color Urine Appearance Urine pH Ur Specific [place] Urine Protein Urine Glucose (UA) Urine Ketones Urine Blood Urine Nitrate Urine Bilirubin Urine Urobilinogen Urine Leukocytes Urine RBC Urine WBC Ur Culture Indicated? JOS (IgG-AHG) JOS, Polyspecific 01/07/17 01/07/17 01/07/17 09:09 09:09 09:09 WBC RBC Hgb Hct MCV MCH MCHC RDW Plt Count MPV Neut % (Auto) Lymph % (Auto) Coffee % (Auto) Eos % (Auto) Baso % (Auto) Neut # (Auto) Lymph # (Auto) Coffee # (Auto) Eos # (Auto) Baso # (Auto) Immature Gran % Nucleated RBC % Immature Gran # Nucleated RBCs # Platelet Estimate Immature Plt Fraction Polychromasia Hypochromasia Microcytosis Ovalocytes ESR Westergren Absolute Retic Percent Retic Retic Hgb Equivalent INR 1.1 PT Patient/Control Mix 12.0 Sodium Potassium Chloride Carbon Dioxide Anion Gap BUN Creatinine GFR Calculation BUN/Creatinine Ratio Glucose POC Glucose Calculated Osmolality Calcium Magnesium Ferritin Total Bilirubin AST ALT Alkaline Phosphatase Total Creatine Kinase CK-MB (CK-2) CK and CKMB Interp Troponin I 2.300 H B-Natriuretic Peptide Total Protein Albumin Globulin Albumin/Globulin Ratio Triglycerides 130 Cholesterol 131 LDL Cholesterol 74.0 VLDL Cholesterol 26.0 HDL Cholesterol 33 L Heart Disease Risk Ratio 3.97 Vitamin B12 Folate Urine Color Urine Appearance Urine pH Ur Specific [place] Urine Protein Urine Glucose (UA) Urine Ketones Urine Blood Urine Nitrate Urine Bilirubin Urine Urobilinogen Urine Leukocytes Urine RBC Urine WBC Ur Culture Indicated? JOS (IgG-AHG) JOS, Polyspecific 01/07/17 01/07/17 01/07/17 12:38 12:38 12:38 WBC 4.4 RBC 3.89 Hgb 9.9 L Hct 31.5 L MCV 81.0 L MCH 25 L MCHC 31.4 L RDW 15.6 Plt Count 71 L MPV 10.0 Neut % (Auto) 54.7 Lymph % (Auto) 33.5 Coffee % (Auto) 9.1 Eos % (Auto) 1.8 Baso % (Auto) 0.7 Neut # (Auto) 2.4 Lymph # (Auto) 1.5 Coffee # (Auto) 0.4 Eos # (Auto) 0.1 Baso # (Auto) 0.0 Immature Gran % 0.2 Nucleated RBC % 0.0 Immature Gran # 0.01 Nucleated RBCs # 0.00 Platelet Estimate Immature Plt Fraction 0.0 Polychromasia Slight Hypochromasia 1+ Microcytosis Ovalocytes ESR Westergren 43 H Absolute Retic 0.1 Percent Retic 2.0 H Retic Hgb Equivalent 26.6 L INR PT Patient/Control Mix Sodium Potassium Chloride Carbon Dioxide Anion Gap BUN Creatinine GFR Calculation BUN/Creatinine Ratio Glucose POC Glucose Calculated Osmolality Calcium Magnesium Ferritin 25.8 L Total Bilirubin AST ALT Alkaline Phosphatase Total Creatine Kinase CK-MB (CK-2) CK and CKMB Interp Troponin I 3.240 H D B-Natriuretic Peptide Total Protein Albumin Globulin Albumin/Globulin Ratio Triglycerides Cholesterol LDL Cholesterol VLDL Cholesterol HDL Cholesterol Heart Disease Risk Ratio Vitamin B12 Folate Urine Color Urine Appearance Urine pH Ur Specific [place] Urine Protein Urine Glucose (UA) Urine Ketones Urine Blood Urine Nitrate Urine Bilirubin Urine Urobilinogen Urine Leukocytes Urine RBC Urine WBC Ur Culture Indicated? JOS (IgG-AHG) JOS, Polyspecific 01/07/17 01/07/17 01/07/17 12:38 12:38 15:50 WBC RBC Hgb Hct MCV MCH MCHC RDW Plt Count MPV Neut % (Auto) Lymph % (Auto) Coffee % (Auto) Eos % (Auto) Baso % (Auto) Neut # (Auto) Lymph # (Auto) Coffee # (Auto) Eos # (Auto) Baso # (Auto) Immature Gran % Nucleated RBC % Immature Gran # Nucleated RBCs # Platelet Estimate Immature Plt Fraction Polychromasia Hypochromasia Microcytosis Ovalocytes ESR [place] Absolute Retic Percent Retic Retic Hgb Equivalent INR PT Patient/Control Mix Sodium Potassium Chloride Carbon Dioxide Anion Gap BUN Creatinine GFR Calculation BUN/Creatinine Ratio Glucose POC Glucose Calculated Osmolality Calcium Magnesium Ferritin Total Bilirubin AST ALT Alkaline Phosphatase Total Creatine Kinase CK-MB (CK-2) CK and CKMB Interp Troponin I B-Natriuretic Peptide Total Protein Albumin Globulin Albumin/Globulin Ratio Triglycerides Cholesterol LDL Cholesterol VLDL Cholesterol HDL Cholesterol Heart Disease Risk Ratio Vitamin B12 1104 H Folate > 24.0 H Urine Color Yellow Urine Appearance Clear Urine pH 5.0 Ur Specific [place] 1.027 Urine Protein Negative Urine Glucose (UA) 50 Urine Ketones Negative Urine Blood Negative Urine Nitrate Negative Urine Bilirubin Negative Urine Urobilinogen < 2.0 H Urine Leukocytes Negative Urine RBC <1 Urine WBC <1 Ur Culture Indicated? Not indicated JOS (IgG-AHG) Negative JOS, Polyspecific Negative 01/07/17 01/07/17 01/07/17 15:56 16:41 23:05 WBC RBC Hgb Hct MCV MCH MCHC RDW Plt Count MPV Neut % (Auto) Lymph % (Auto) Coffee % (Auto) Eos % (Auto) Baso % (Auto) Neut # (Auto) Lymph # (Auto) Coffee # (Auto) Eos # (Auto) Baso # (Auto) Immature Gran % Nucleated RBC % Immature Gran # Nucleated RBCs # Platelet Estimate Immature Plt Fraction Polychromasia Hypochromasia Microcytosis Ovalocytes ESR Westergren Absolute Retic Percent Retic Retic Hgb Equivalent INR PT Patient/Control Mix Sodium Potassium Chloride Carbon Dioxide Anion Gap BUN Creatinine GFR Calculation BUN/Creatinine Ratio Glucose POC Glucose 142 H 200 H Calculated Osmolality Calcium Magnesium Ferritin Total Bilirubin AST ALT Alkaline Phosphatase Total Creatine Kinase CK-MB (CK-2) CK and CKMB Interp Troponin I 4.910 H D B-Natriuretic Peptide Total Protein Albumin Globulin Albumin/Globulin Ratio Triglycerides Cholesterol LDL Cholesterol VLDL Cholesterol HDL Cholesterol Heart Disease Risk Ratio Vitamin B12 Folate Urine Color Urine Appearance Urine pH Ur Specific [place] Urine Protein Urine Glucose (UA) Urine Ketones Urine Blood Urine Nitrate Urine Bilirubin Urine Urobilinogen Urine Leukocytes Urine RBC Urine WBC Ur Culture Indicated? JOS (IgG-AHG) JOS, Polyspecific 01/08/17 01/08/17 01/08/17 04:23 04:23 04:23 WBC 6.3 D RBC 4.60 Hgb 11.7 L Hct 37.2 L MCV 80.9 L MCH 25 L MCHC 31.5 L RDW 16.0 Plt Count 94 L D MPV 10.4 Neut % (Auto) 74.2 H Lymph % (Auto) 14.3 L Coffee % (Auto) 10.4 Eos % (Auto) 0.3 Baso % (Auto) 0.5 Neut # (Auto) 4.7 Lymph # (Auto) 0.9 L Coffee # (Auto) 0.7 Eos # (Auto) 0.0 Baso # (Auto) 0.0 Immature Gran % 0.3 Nucleated RBC % 0.0 Immature Gran # 0.02 Nucleated RBCs # 0.00 Platelet Estimate Immature Plt Fraction 0.0 Polychromasia Hypochromasia Microcytosis Ovalocytes ESR Westergren Absolute Retic Percent Retic Retic Hgb Equivalent INR PT Patient/Control Mix Sodium 135 L Potassium 4.6 Chloride 100 Carbon Dioxide 25 Anion Gap 14.6 BUN 21 H Creatinine 1.70 H GFR Calculation 47 BUN/Creatinine Ratio 12.00 Glucose 314 H POC Glucose Calculated Osmolality 284.1 Calcium 8.5 Magnesium 2.2 Ferritin Total Bilirubin 0.80 AST 49 H ALT 16 Alkaline Phosphatase 83 Total Creatine Kinase CK-MB (CK-2) CK and CKMB Interp Troponin I B-Natriuretic Peptide Total Protein 7.2 Albumin 3.3 L Globulin 3.9 H Albumin/Globulin Ratio 0.8 L Triglycerides 159 H Cholesterol 148 LDL Cholesterol 88.0 VLDL Cholesterol 31.8 HDL Cholesterol 36 L Heart Disease Risk Ratio 4.11 Vitamin B12 Folate Urine Color Urine Appearance Urine pH Ur Specific [place] Urine Protein Urine Glucose (UA) Urine Ketones Urine Blood Urine Nitrate Urine Bilirubin Urine Urobilinogen Urine Leukocytes Urine RBC Urine WBC Ur Culture Indicated? JOS (IgG-AHG) JOS, Polyspecific 01/08/17 04:23 WBC RBC Hgb Hct MCV MCH MCHC RDW Plt Count MPV Neut % (Auto) Lymph % (Auto) Coffee % (Auto) Eos % (Auto) Baso % (Auto) Neut # (Auto) Lymph # (Auto) Coffee # (Auto) Eos # (Auto) Baso # (Auto) Immature Gran % Nucleated RBC % Immature Gran # Nucleated RBCs # Platelet Estimate Immature Plt Fraction Polychromasia Hypochromasia Microcytosis Ovalocytes ESR W[place] Absolute Retic Percent Retic Retic Hgb Equivalent INR PT Patient/Control Mix Sodium Potassium Chloride Carbon Dioxide Anion Gap BUN Creatinine GFR Calculation BUN/Creatinine Ratio Glucose POC Glucose Calculated Osmolality Calcium Magnesium Ferritin Total Bilirubin AST ALT Alkaline Phosphatase Total Creatine Kinase 180 CK-MB (CK-2) 22.1 H CK and CKMB Interp 12.3 Troponin I 6.580 H D B-Natriuretic Peptide Total Protein Albumin Globulin Albumin/Globulin Ratio Triglycerides Cholesterol LDL Cholesterol VLDL Cholesterol HDL Cholesterol Heart Disease Risk Ratio Vitamin B12 Folate Urine Color Urine Appearance Urine pH Ur Specific [place] Urine Protein Urine Glucose (UA) Urine Ketones Urine Blood Urine Nitrate Urine Bilirubin Urine Urobilinogen Urine Leukocytes Urine RBC Urine WBC Ur Culture Indicated? JOS (IgG-AHG) JOS, Polyspecific - Diagnostic Findings Procedure: Chest x-ray: report reviewed by me - EKG EKG results: interpreted by me EKG shows: atrial fibrillation Quality Measures - VTE Contraindication to Pharmacological VTE Prophylaxis: High Risk of Bleeding - Stroke Symptom Onset Unknown: No Specialty Discharge - Follow Up or Referrals
[2017-01-08] MEDS ORDERED: NON-FORMULARY MEDICATION (Clonazepam [Clonazepam] 1 MG) PO SCH (09:15)
[2017-01-08] MEDS ORDERED: SENNA 8.6 MG TABLET PO PRN (09:30)
[2017-01-08] MEDS ORDERED: FLUTICASONE 50 MCG NASAL SPRAY 16 GM BOTTLE BOTH NARES PRN (09:30)
[2017-01-08] MEDS ORDERED: oxyCODONE ER 10 MG TABLET PO SCH (09:30)
[2017-01-08] MEDS ORDERED: CYANOCOBALAMIN 1000 MCG/1 ML VIAL IM SCH (09:30)
[2017-01-08] MEDS ORDERED: INSULIN NPH/REGULAR 70/30 100 UNIT/ML SUBCUT SCH ×3 (09:30→19:00)
[2017-01-08] MEDS: RANOLAZINE 500 MG TABLET PO SCH ×2 (09:49→20:16)
[2017-01-08] MEDS: DOCUSATE SODIUM 100 MG CAPSULE PO SCH (09:49)
[2017-01-08] MEDS: MAGNESIUM OXIDE 400 MG TABLET PO SCH ×2 (09:50→20:19)
[2017-01-08] MEDS: OXYBUTYNIN 5 MG TABLET PO SCH ×2 (09:50→20:15)
[2017-01-08] MEDS: GABAPENTIN 600 MG TABLET PO SCH (09:50)
[2017-01-08] MEDS: oxyCODONE/ACETAMINOPHEN 5-325 MG TABLET PO PRN ×3 (09:50→20:34)
[2017-01-08] MEDS ORDERED: GLUCAGON 1 MG VIAL IM PRN (11:08)
[2017-01-08] MEDS ORDERED: DEXTROSE 50% 25 GM/50 ML SYRINGE IV PRN (11:08)
[2017-01-08] MEDS ORDERED: FUROSEMIDE 40 MG/4 ML VIAL IV ONE (11:10)
[2017-01-08] MEDS: DILTIAZEM 30 MG TABLET PO SCH ×4 (12:56→20:17)
[2017-01-08] MEDS: INSULIN REGULAR 100 UNIT/ML SUBCUT SCH ×3 (12:56→20:33)
[2017-01-08] MEDS: CITALOPRAM 20 MG TABLET PO SCH (20:14)
[2017-01-08] MEDS: ROSUVASTATIN 20 MG TABLET PO SCH (20:16)
[2017-01-08] MEDS: ASCORBIC ACID 500 MG TABLET PO SCH (20:18)
[2017-01-08] MEDS: INSULIN GLARGINE 100 UNIT/ML SUBCUT SCH (20:32)
[2017-01-08] MEDS: MIRTAZAPINE 30 MG TABLET PO SCH (20:34)
[2017-01-08] MEDS: ZINC GLUCONATE 50 MG TABLET PO SCH (20:34)
[2017-01-09 05:34] LABS: Basophils % 0.3 % (0.0-0.8); Eosinophils # 0.1 10*3/uL (0.0-0.87); Eosinophils % 1.1 % (0.00-10.9); Hematocrit 33.9 VOL% (42.0-52.0); Hemoglobin 10.5 GM/DL (14.0-18.0); Immature Granulocytes % 0.4 %; Immature Granulocytes Absolute 0.04 #; Lymphocytes # 2.2 10*3/uL (1.4-4.0); Lymphocytes % 23.9 % (21.2-54.2); Mean Corpuscular Hemoglobin 25 PG (27-34); Mean Corpuscular Volume 80.1 FL (87-102); Mean Platelet Volume 10.1 FL (9.6-12.0); Monocytes # 0.9 10*3/uL (0.11-0.8); Monocytes % 9.9 % (1.7-12.7); Neutrophils % 64.4 % (38.7-73.9); Platelet Count 103 T/CUMM (130-400); Red Blood Count 4.23 MC/CUMM (3.8-5.5); White Blood Count 9.3 T/CUMM (4-12)
[2017-01-09 06:11] LABS: Calcium 8.3 MG/DL (8.5-10.1); Magnesium 2.5 MG/DL (1.8-2.4); Osmolality,Calculated 277.1 MOS/KG (273-304); Potassium 4.2 MMOL/L (3.5-5.1)
[2017-01-09 06:19] LABS: Albumin 2.9 G/DL (3.4-5.0); Bilirubin,Total 1.2 MG/DL (0.2-1.0); Calcium 8.1 MG/DL (8.5-10.1); Osmolality,Calculated 277.1 MOS/KG (273-304); Potassium 4.2 MMOL/L (3.5-5.1); Total Protein 6.2 G/DL (6.4-8.3)
--- NOTE | 2017-01-09 08:50 | Physician Query Form ---
CLICK EDIT DOCUMENT TO SELECT QUERY ANSWER --> OK --> SIGN Mari Mccray RN Clinical Radio Assembler W) [phone] (f) [phone] [email or web address] PROVIDERS: Make your selection(s) from the choices in EACH section by typing an "x" and enter comments in the comment section. Please use your independent medical judgment in providing your response. This request does not imply that any particular answer is desired or expected. CLINICAL INDICATORS: (Providers should not edit this section) Based on documentation of left heart cath with temporary pacemaker placement. Creatinine from 1.7 to 2.20. GFR from 47 to 34. Treated with 1/2 NS infusion. Clarify which of the following most accurately represents the patient's renal status: ( ) Acute kidney injury (non-traumatic) ( ) Acute renal failure (x ) Acute renal failure with underlying Chronic Kidney Disease (CKD) - please provide stage below ( ) Acute renal failure with pathological renal lesion ( ) Acute renal failure with necrosis ( ) tubular ( ) medullary ( ) cortical ( ) CKD - please provide stage below ( ) End Stage Renal Disease ( ) Acute interstitial nephritis ( ) Hepatorenal syndrome ( ) Other, please specify: ( ) Clinically unable to determine Chronic Kidney Disease Stages Source: National Kid[employer] Foundation ( ) Stage I (eGFR > or = 90) ( x) Stage II (eGFR 60 - 89) ( ) Stage III (eGFR 30 - 59) ( ) Stage IV (eGFR 15 - 29) ( ) Stage V (eGFR < 15 or dialysis) COMMENTS: PLEASE ALSO DOCUMENT RESPONSE IN PROGRESS NOTES AND/OR DISCHARGE SUMMARY Use of terms such as suspected, likely, or probable (associated with a specific diagnosis that is being evaluated, monitored, or treated as if it exists) are acceptable and can be restated in the discharge summary if not ruled out. MTDD
[2017-01-09] MEDS: INSULIN REGULAR 100 UNIT/ML SUBCUT SCH ×4 (09:06→21:44)
[2017-01-09] MEDS: INSULIN NPH/REGULAR 70/30 100 UNIT/ML SUBCUT SCH (09:06)
[2017-01-09] MEDS: clonazePAM 0.5 MG TABLET PO SCH ×2 (09:07→21:42)
[2017-01-09] MEDS: PANTOPRAZOLE 40 MG TABLET PO SCH (09:07)
[2017-01-09] MEDS: RANOLAZINE 500 MG TABLET PO SCH ×2 (09:07→21:42)
[2017-01-09] MEDS: ASPIRIN EC 81 MG TABLET PO SCH (09:08)
[2017-01-09] MEDS: GABAPENTIN 600 MG TABLET PO SCH (09:08)
[2017-01-09] MEDS: LOSARTAN 25 MG TABLET PO SCH (09:08)
[2017-01-09] MEDS: DILTIAZEM 30 MG TABLET PO SCH ×4 (09:08→21:42)
[2017-01-09] MEDS: MAGNESIUM OXIDE 400 MG TABLET PO SCH ×2 (09:08→21:42)
[2017-01-09] MEDS: DOCUSATE SODIUM 100 MG CAPSULE PO SCH (09:09)
[2017-01-09] MEDS: CLOPIDOGREL 75 MG TABLET PO SCH (09:09)
[2017-01-09] MEDS: ASCORBIC ACID 500 MG TABLET PO SCH ×2 (09:09→21:43)
[2017-01-09] MEDS: FUROSEMIDE 40 MG TABLET PO SCH (09:09)
[2017-01-09] MEDS: OXYBUTYNIN 5 MG TABLET PO SCH ×2 (09:09→21:43)
[2017-01-09] MEDS: METOPROLOL TARTRATE 25 MG TABLET PO SCH ×2 (09:15→21:43)
[2017-01-09 09:25] LABS: Hemoglobin A1 (Alkaline) 97.3 % (96.5-98.5); Hemoglobin A2 (Alkaline) 2.7 % (1.5-3.5)
--- NOTE | 2017-01-09 11:59 | Cardiology Progress Note ---
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 Assessment and plan: SEE PLAN OF CARE LISTED BELOW Current Visit: Yes (4) Anemia Status: Chronic Assessment and plan: SEE PLAN OF CARE LISTED BELOW Current Visit: Yes (5) Thrombocytopenia Status: Chronic Assessment and plan: SEE PLAN OF CARE LISTED BELOW Current Visit: Yes (6) Essential hypertension Status: Chronic Assessment and plan: SEE PLAN OF CARE LISTED BELOW Current Visit: No (7) Coronary artery disease Status: Chronic Assessment and plan: SEE PLAN OF CARE LISTED BELOW Current Visit: No (8) Chronic renal insufficiency, stage III (moderate) Status: Chronic Assessment and plan: SEE PLAN OF CARE LISTED BELOW Current Visit: No (9) Atrial fibrillation Status: Chronic Assessment and plan: SEE PLAN OF CARE LISTED BELOW Current Visit: No (10) Non-ST elevation (NSTEMI) myocardial infarction Status: Acute Assessment and plan: SEE PLAN OF CARE LISTED BELOW Current Visit: Yes (11) Asystole Status: Resolved Assessment and plan: SEE PLAN OF CARE LISTED BELOW Current Visit: Yes (12) Ischemic cardiomyopathy Status: Acute Assessment and plan: SEE PLAN OF CARE LISTED BELOW Current Visit: Yes Cardiology - PN: Subj Interval history: [employer]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 DOHERTY SUMMARY: Mr. Oliver, 76WM, with risk factors significant for: age, known CAD (S /P CABG 3 several years ago, report unavailable), hypertension, dyslipidemia, diabetes, CVA, sedentary lifestyle. History of atrial fibrillation for which he takes Eliquis for stroke prevention. Admitted January 07, 2017 with NSTEMI. He was taken urgently to the cardiac lab where Dr. Asher performed heart catheterization the following noted: CONCLUSIONS: 1: Severe diffuse [place] multivessel coronary artery disease 2: 2 of 3 grafts patent with occlusion of the right coronary vein graft now supplied with good collaterals from the circumflex marginal (via the bypass) to the right coronary artery 3: Distal right coronary disease likely the index event with occlusion of the posterolateral branch 4: Episode of asystole now with a temporary pacemaker for close observation. 5: Ischemic cardiomyopathy ejection fraction 35% 6: Minx closure right femoral arteriotomy site DISCUSSION/RECOMMENDATIONS: The patient presents with chest discomfort. He has an elevation of his troponin into the 2.0 range. The only finding on cardiac catheterization which looks recent is occlusion of the posterior lateral branch of the right coronary artery. That is likely the cause of his recent event. It is not approachable with percutaneous coronary intervention. The patient had an episode of asystole which was thought to be related to stimulation of the bundle with the right coronary catheter. He recovered his rhythm spontaneously after a prolonged asystolic episode. A temporary pacemaker was placed in order to observe this overnight with plans to discontinue pacemaker the following morning. Findings discussed with the patient and with his family. 2016: No additional arrhythmias noted overnight. Dr. Asher plans to remove the temporary pacemaker this morning. Patient is having chronic pain of joints, shoulders and back. No chest pain since intervention occurred. Will reintroduce his multiple narcotics from home immediately to better control his pain. Anemia is stable overnight. Platelet count has improved from 71 - 94 (long-standing history of thrombocytopenia). Will check another troponin tomorrow morning. Eliquis has been held post cath. We will restart tomorrow. Patient is on IV Cardizem for atrial fibrillation with rapid ventricular response. Rate is much better controlled. I will transition to oral short acting calcium channel nam and wean off IV Cardizem. 2016: Patient continues to improve slowly. He is significantly debilitated. His chest pain has improved. Patient was transitioned off IV Cardizem and is tolerating oral calcium channel nam without problems. Heart rates 90s. During the night, he did have one episode of faster heart rates around 120 bpm with this seems to have resolved. Creatinine continues to increase at 2.2. According to daily weights recorded, no real change in weight overnight. May be transferred to telemetry with close monitoring. Will further discuss with Dr. Asher and await additional recommendations. Will verify case management is working toward discharge plans. Patient will need LTAC versus swing bed at discharge I suspect IMPRESSION/PLAN: 1. NSTEMI - patient is taking Aspirin, Plavix, beta-nam, ARB, Crestor. Will stop his Losartan at this point due to his worsening renal insufficiency. 2. KNOWN CAD STATUS POST CABG 3 - see heart catheterization report. Continue with appropriate medication regimen listed above. 3. HYPERTENSION - adequately controlled. Holding ARB as creatinine has increased overnight. May increase iesha blocking agents as needed for rate control. 4. DYSLIPIDEMIA - LDL 74. Continue Crestor. 5. DIABETES - blood sugar improved after adjusting diabetic medications. 6. ATRIAL FIBRILLATION - RVR overnight, now rate controlled. Transitioning from IV Cardizem to oral. Will reincorporate Eliquis 48 hours after heart catheterization. 7. HIGH RISK MEDICATION (ELIQUIS) - we will restart Eliquis 48 hours after heart cath. 8. ANEMIA - seems to be stable. Will restart Eliquis tomorrow morning. 9. THROMBOCYTOPENIA - Long standing history as listed in labs in [facility]. Continue current plan of care. Labs stable 10. CKD, STAGE III - follow BMP daily. Creatinine worse overnight. 11. ASYSTOLE - occurred after intervention thought to be related to stimulation of the bundle with the right coronary catheter. No additional arrhythmias overnight status post temporary pacemaker implantation. Plan to remove temporary pacemaker today 12. ICM - EF 35%. Will continue betablocker, hold ARB for now. Monitor creatinine. Exam (Progress Note) - Constitutional Vitals: Period Temp Pulse Resp BP Sys/Nguyen Pulse Ox Last 24 Hr 97.8 F-98.9 F 66-98 14-27 91-150/54-94 91-95 Exam: General: [Appears well with no apparent distress.] [Pleasant and cooperative. ] [Appears comfortable.] HEENT: [PERRL, normocephalic, atraumatic. Mucous membranes moist. No jaundice noted. Conjunctiva moist and clear, sclerae anicteric] Neck: No obvious JVD/HJR, no thyromegaly or lymphadenopathy noted. No carotid bruit appreciated Cardiac: [Irregularly irregular rhythm, controlled rate ] [No obvious murmur rub or gallop.] Lungs: [Clear to auscultation without accessory muscle use to assist the respiratory pattern.] Oxygen in use via nasal cannula Abdomen: Soft, bowel sounds normoactive. Nontender and nondistended. No abdominal bruit or thrill noted. No masses noted. Musculoskeletal: No fluid collection. Decreased range of motion is noted. Extremities: Right groin soft, temporal pacemaker catheters intact. No hematoma. No clubbing, cyanosis noted. [ No edema noted.] Upper extremity pulses 2+. Lower extremity pulses 2+. Capillary refill less than 3 seconds. Skin: No unusual lesions or rashes. No skin breakdown appreciated. Neuro: Awake, alert and oriented 3. Moves all extremities well without hemiparesis or paralysis. No essential tremor is appreciated. Result/EKG - Labs CBC & BMP: 01/09/17 04:48 01/09/17 04:48 Lab Results: I have reviewed the past 24 hour labs Labs: Laboratory Results - last 24 hr 01/07/17 01/07/17 01/08/17 12:38 12:38 12:30 WBC RBC Hgb Hct MCV MCH MCHC RDW Plt Count MPV Neut % (Auto) Lymph % (Auto) [place] % (Auto) Eos % (Auto) Baso % (Auto) Neut # (Auto) Lymph # (Auto) [place] # (Auto) Eos # (Auto) Baso # (Auto) Immature Gran % Nucleated RBC % Immature Gran # Nucleated RBCs # Anemia Panel Interp Immature Plt Fraction Hemoglobin A1 97.3 Hemoglobin A2 2.7 Hgb ELP Interp Sodium Potassium Chloride Carbon Dioxide Anion Gap BUN Creatinine GFR Calculation BUN/Creatinine Ratio Glucose POC Glucose 315 H Calculated Osmolality Calcium Magnesium Total Bilirubin AST ALT Alkaline Phosphatase Troponin I Total Protein Albumin Globulin Albumin/Globulin Ratio 01/08/17 01/08/17 01/09/17 16:57 20:11 04:48 WBC RBC Hgb Hct MCV MCH MCHC RDW Plt Count MPV Neut % (Auto) Lymph % (Auto) [place] % (Auto) Eos % (Auto) Baso % (Auto) Neut # (Auto) Lymph # (Auto) [place] # (Auto) Eos # (Auto) Baso # (Auto) Immature Gran % Nucleated RBC % Immature Gran # Nucleated RBCs # Anemia Panel Interp Immature Plt Fraction Hemoglobin A1 Hemoglobin A2 Hgb ELP Interp Sodium 135 L Potassium 4.2 Chloride 99 Carbon Dioxide 30 Anion Gap 10.2 BUN 29 H Creatinine 2.20 H GFR Calculation 34 BUN/Creatinine Ratio 13.00 Glucose 132 H POC Glucose 324 H 340 H Calculated Osmolality 277.1 Calcium 8.3 L Magnesium 2.5 H Total Bilirubin AST ALT Alkaline Phosphatase Troponin I Total Protein Albumin Globulin Albumin/Globulin Ratio 01/09/17 01/09/17 01/09/17 04:48 04:48 04:48 WBC 9.3 D RBC 4.23 Hgb 10.5 L Hct 33.9 L MCV 80.1 L MCH 25 L MCHC 31.0 L RDW 16.0 Plt Count 103 L MPV 10.1 Neut % (Auto) 64.4 Lymph % (Auto) 23.9 [place] % (Auto) 9.9 Eos % (Auto) 1.1 Baso % (Auto) 0.3 Neut # (Auto) 6.0 Lymph # (Auto) 2.2 [place] # (Auto) 0.9 H Eos # (Auto) 0.1 Baso # (Auto) 0.0 Immature Gran % 0.4 Nucleated RBC % 0.0 Immature Gran # 0.04 Nucleated RBCs # 0.00 Anemia Panel Interp Immature Plt Fraction 0.0 Hemoglobin A1 Hemoglobin A2 Hgb ELP Interp Sodium 135 L Potassium 4.2 Chloride 98 Carbon Dioxide 30 Anion Gap 11.2 BUN 29 H Creatinine 2.20 H GFR Calculation 34 BUN/Creatinine Ratio 13.00 Glucose 129 H POC Glucose Calculated Osmolality 277.1 Calcium 8.1 L Magnesium Total Bilirubin 1.20 H AST 73 H ALT 15 L Alkaline Phosphatase 72 Troponin I 11.900 H D Total Protein 6.2 L Albumin 2.9 L Globulin 3.3 Albumin/Globulin Ratio 0.8 L 01/09/17 01/09/17 07:52 11:15 WBC RBC Hgb Hct MCV MCH MCHC RDW Plt Count MPV Neut % (Auto) Lymph % (Auto) [place] % (Auto) Eos % (Auto) Baso % (Auto) Neut # (Auto) Lymph # (Auto) [place] # (Auto) Eos # (Auto) Baso # (Auto) Immature Gran % Nucleated RBC % Immature Gran # Nucleated RBCs # Anemia Panel Interp Immature Plt Fraction Hemoglobin A1 Hemoglobin A2 Hgb ELP Interp Sodium Potassium Chloride Carbon Dioxide Anion Gap BUN Creatinine GFR Calculation BUN/Creatinine Ratio Glucose POC Glucose 335 H 169 H Calculated Osmolality Calcium Magnesium Total Bilirubin AST ALT Alkaline Phosphatase Troponin I Total Protein Albumin Globulin Albumin/Globulin Ratio - EKG EKG results: interpreted by me EKG shows: atrial fibrillation Quality Measures - VTE Contraindication to Pharmacological VTE Prophylaxis: High Risk of Bleeding - Stroke Symptom Onset Unknown: No Specialty Discharge - Follow Up or Referrals <Jason Asher - Last Filed: 01/09/17 13:56> Cardiology - PN: Subj Interval history: I have discussed in detail the particulars of this case and I have examined the patient and reviewed the patient's chart both current and old. I was directly involved in the patient's evaluation and management and I completely agree with Daina Cuevas NP regarding this patient's evaluation and treatment plan. Exam (Progress Note) - Constitutional Vitals: Period Temp Pulse Resp BP Sys/Nguyen Pulse Ox Last 24 Hr 98 F-98.9 F 68-98 14-27 91-150/54-94 91-95 Result/EKG - Labs CBC & BMP: 01/09/17 04:48 01/09/17 04:48 Labs: Laboratory Results - last 24 hr 01/07/17 01/07/17 01/08/17 12:38 12:38 16:57 WBC RBC Hgb Hct MCV MCH MCHC RDW Plt Count MPV Neut % (Auto) Lymph % (Auto) [place] % (Auto) Eos % (Auto) Baso % (Auto) Neut # (Auto) Lymph # (Auto) [place] # (Auto) Eos # (Auto) Baso # (Auto) Immature Gran % Nucleated RBC % Immature Gran # Nucleated RBCs # Anemia Panel Interp Immature Plt Fraction Hemoglobin A1 97.3 Hemoglobin A2 2.7 Hgb ELP Interp Sodium Potassium Chloride Carbon Dioxide Anion Gap BUN Creatinine GFR Calculation BUN/Creatinine Ratio Glucose POC Glucose 324 H Calculated Osmolality Calcium Magnesium Total Bilirubin AST ALT Alkaline Phosphatase Troponin I Total Protein Albumin Globulin Albumin/Globulin Ratio 01/08/17 01/09/17 01/09/17 20:11 04:48 04:48 WBC 9.3 D RBC 4.23 Hgb 10.5 L Hct 33.9 L MCV 80.1 L MCH 25 L MCHC 31.0 L RDW 16.0 Plt Count 103 L MPV 10.1 Neut % (Auto) 64.4 Lymph % (Auto) 23.9 [place] % (Auto) 9.9 Eos % (Auto) 1.1 Baso % (Auto) 0.3 Neut # (Auto) 6.0 Lymph # (Auto) 2.2 [place] # (Auto) 0.9 H Eos # (Auto) 0.1 Baso # (Auto) 0.0 Immature Gran % 0.4 Nucleated RBC % 0.0 Immature Gran # 0.04 Nucleated RBCs # 0.00 Anemia Panel Interp Immature Plt Fraction 0.0 Hemoglobin A1 Hemoglobin A2 Hgb ELP Interp Sodium 135 L Potassium 4.2 Chloride 99 Carbon Dioxide 30 Anion Gap 10.2 BUN 29 H Creatinine 2.20 H GFR Calculation 34 BUN/Creatinine Ratio 13.00 Glucose 132 H POC Glucose 340 H Calculated Osmolality 277.1 Calcium 8.3 L Magnesium 2.5 H Total Bilirubin AST ALT Alkaline Phosphatase Troponin I Total Protein Albumin Globulin Albumin/Globulin Ratio 01/09/17 01/09/17 01/09/17 04:48 04:48 07:52 WBC RBC Hgb Hct MCV MCH MCHC RDW Plt Count MPV Neut % (Auto) Lymph % (Auto) [place] % (Auto) Eos % (Auto) Baso % (Auto) Neut # (Auto) Lymph # (Auto) [place] # (Auto) Eos # (Auto) Baso # (Auto) Immature Gran % Nucleated RBC % Immature Gran # Nucleated RBCs # Anemia Panel Interp Immature Plt Fraction Hemoglobin A1 Hemoglobin A2 Hgb ELP Interp Sodium 135 L Potassium 4.2 Chloride 98 Carbon Dioxide 30 Anion Gap 11.2 BUN 29 H Creatinine 2.20 H GFR Calculation 34 BUN/Creatinine Ratio 13.00 Glucose 129 H POC Glucose 335 H Calculated Osmolality 277.1 Calcium 8.1 L Magnesium Total Bilirubin 1.20 H AST 73 H ALT 15 L Alkaline Phosphatase 72 Troponin I 11.900 H D Total Protein 6.2 L Albumin 2.9 L Globulin 3.3 Albumin/Globulin Ratio 0.8 L 01/09/17 11:15 WBC RBC Hgb Hct MCV MCH MCHC RDW Plt Count MPV Neut % (Auto) Lymph % (Auto) [place] % (Auto) Eos % (Auto) Baso % (Auto) Neut # (Auto) Lymph # (Auto) [place] # (Auto) Eos # (Auto) Baso # (Auto) Immature Gran % Nucleated RBC % Immature Gran # Nucleated RBCs # Anemia Panel Interp Immature Plt Fraction Hemoglobin A1 Hemoglobin A2 Hgb ELP Interp Sodium Potassium Chloride Carbon Dioxide Anion Gap BUN Creatinine GFR Calculation BUN/Creatinine Ratio Glucose POC Glucose 169 H Calculated Osmolality Calcium Magnesium Total Bilirubin AST ALT Alkaline Phosphatase Troponin I Total Protein Albumin Globulin Albumin/Globulin Ratio
[2017-01-09] MEDS ORDERED: INSULIN NPH/REGULAR 70/30 100 UNIT/ML SUBCUT SCH ×2 (18:04→20:00)
[2017-01-09] MEDS: MIRTAZAPINE 30 MG TABLET PO SCH (21:42)
[2017-01-09] MEDS: ROSUVASTATIN 20 MG TABLET PO SCH (21:42)
[2017-01-09] MEDS: ZINC GLUCONATE 50 MG TABLET PO SCH (21:42)
[2017-01-09] MEDS: INSULIN GLARGINE 100 UNIT/ML SUBCUT SCH (21:43)
[2017-01-09] MEDS: CITALOPRAM 20 MG TABLET PO SCH (21:49)
[2017-01-10 04:57] LABS: Basophils % 0.4 % (0.0-0.8); Eosinophils # 0.1 10*3/uL (0.0-0.87); Eosinophils % 1.1 % (0.00-10.9); Hematocrit 32.6 VOL% (42.0-52.0); Hemoglobin 10.2 GM/DL (14.0-18.0); Immature Granulocytes % 0.6 %; Immature Granulocytes Absolute 0.03 #; Lymphocytes # 1.5 10*3/uL (1.4-4.0); Lymphocytes % 26.9 % (21.2-54.2); Mean Corpuscular HGB Conc 31.3 GM/DL (32-36); Mean Corpuscular Hemoglobin 25 PG (27-34); Mean Corpuscular Volume 80.1 FL (87-102); Mean Platelet Volume 10.6 FL (9.6-12.0); Monocytes # 0.5 10*3/uL (0.11-0.8); Monocytes % 9.4 % (1.7-12.7); Neutrophils # 3.4 10*3/uL (1.4-7.4); Neutrophils % 61.6 % (38.7-73.9); Platelet Count 82 T/CUMM (130-400); Red Blood Count 4.07 MC/CUMM (3.8-5.5); Red Cell Distribution Width 15.9 % (9.3-17.3); White Blood Count 5.4 T/CUMM (4-12)
[2017-01-10 05:21] LABS: Eosinophils 1 % (0-10); Hypochromasia 1+; Lymphocytes 30 % (20-55); Microcytosis Slight; Ovalocytes Slight; Platelet Estimate Decreased; Segmented Neutrophils 63 % (50-85); Total Cells Counted 100
[2017-01-10 05:22] LABS: Calcium 8.2 MG/DL (8.5-10.1); Magnesium 2.5 MG/DL (1.8-2.4); Osmolality,Calculated 283.8 MOS/KG (273-304); Potassium 4.1 MMOL/L (3.5-5.1)
[2017-01-10 05:28] LABS: Albumin 2.6 G/DL (3.4-5.0); Bilirubin,Total 1.8 MG/DL (0.2-1.0); Calcium 8.3 MG/DL (8.5-10.1); Osmolality,Calculated 282.8 MOS/KG (273-304); Potassium 4.1 MMOL/L (3.5-5.1); Total Protein 5.7 G/DL (6.4-8.3)
[2017-01-10] MEDS: INSULIN REGULAR 100 UNIT/ML SUBCUT SCH ×4 (09:00→21:23)
[2017-01-10] MEDS: ASCORBIC ACID 500 MG TABLET PO SCH ×2 (09:06→21:22)
[2017-01-10] MEDS: DOCUSATE SODIUM 100 MG CAPSULE PO SCH (09:07)
[2017-01-10] MEDS: METOPROLOL TARTRATE 25 MG TABLET PO SCH ×2 (09:07→21:22)
[2017-01-10] MEDS: OXYBUTYNIN 5 MG TABLET PO SCH ×2 (09:07→21:22)
[2017-01-10] MEDS: GABAPENTIN 600 MG TABLET PO SCH (09:08)
[2017-01-10] MEDS: clonazePAM 0.5 MG TABLET PO SCH ×2 (09:08→21:21)
[2017-01-10] MEDS: DILTIAZEM 30 MG TABLET PO SCH ×4 (09:08→21:22)
[2017-01-10] MEDS: RANOLAZINE 500 MG TABLET PO SCH ×2 (09:08→21:21)
[2017-01-10] MEDS: ASPIRIN EC 81 MG TABLET PO SCH (09:09)
[2017-01-10] MEDS: CLOPIDOGREL 75 MG TABLET PO SCH (09:09)
[2017-01-10] MEDS: PANTOPRAZOLE 40 MG TABLET PO SCH (09:09)
[2017-01-10] MEDS: FUROSEMIDE 40 MG TABLET PO SCH (09:09)
[2017-01-10] MEDS: MAGNESIUM OXIDE 400 MG TABLET PO SCH ×2 (09:10→21:21)
[2017-01-10] MEDS: INSULIN NPH/REGULAR 70/30 100 UNIT/ML SUBCUT SCH ×2 (10:31→18:23)
--- NOTE | 2017-01-10 11:31 | Cardiology Progress Note ---
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 Assessment and plan: SEE PLAN OF CARE LISTED BELOW Current Visit: Yes (4) Anemia Status: Chronic Assessment and plan: SEE PLAN OF CARE LISTED BELOW Current Visit: Yes (5) Thrombocytopenia Status: Chronic Assessment and plan: SEE PLAN OF CARE LISTED BELOW Current Visit: Yes (6) Essential hypertension Status: Chronic Assessment and plan: SEE PLAN OF CARE LISTED BELOW Current Visit: No (7) Coronary artery disease Status: Chronic Assessment and plan: SEE PLAN OF CARE LISTED BELOW Current Visit: No (8) Chronic renal insufficiency, stage III (moderate) Status: Chronic Assessment and plan: SEE PLAN OF CARE LISTED BELOW Current Visit: No (9) Atrial fibrillation Status: Chronic Assessment and plan: SEE PLAN OF CARE LISTED BELOW Current Visit: No (10) Non-ST elevation (NSTEMI) myocardial infarction Status: Resolved Assessment and plan: SEE PLAN OF CARE LISTED BELOW Current Visit: Yes (11) Asystole Status: Resolved Assessment and plan: SEE PLAN OF CARE LISTED BELOW Current Visit: Yes (12) Ischemic cardiomyopathy Status: Acute Assessment and plan: SEE PLAN OF CARE LISTED BELOW Current Visit: Yes Cardiology - PN: Subj Interval history: CHECK OUT CASHIER: DR. DOHERTY SUMMARY: Mr. Oliver, 76WM, with risk factors significant for: age, known CAD (S /P CABG 3 several years ago, report unavailable), hypertension, dyslipidemia, diabetes, CVA, sedentary lifestyle. History of atrial fibrillation for which he takes Eliquis for stroke prevention. Admitted January 07, 2017 with NSTEMI. He was taken urgently to the cardiac lab where Dr. Asher performed heart catheterization the following noted: CONCLUSIONS: 1: Severe diffuse [place] multivessel coronary artery disease 2: 2 of 3 grafts patent with occlusion of the right coronary vein graft now supplied with good collaterals from the circumflex marginal (via the bypass) to the right coronary artery 3: Distal right coronary disease likely the index event with occlusion of the posterolateral branch 4: Episode of asystole now with a temporary pacemaker for close observation. 5: Ischemic cardiomyopathy ejection fraction 35% 6: Minx closure right femoral arteriotomy site DISCUSSION/RECOMMENDATIONS: The only finding which looks recent is occlusion of the posterior lateral branch of the right coronary artery. That is likely the cause of his recent event. It is not approachable with percutaneous coronary intervention. The patient had an episode of asystole which was thought to be related to stimulation of the bundle with the right coronary catheter. He recovered his rhythm spontaneously after a prolonged asystolic episode. A temporary pacemaker was placed in order to observe this overnight. 2016: No additional arrhythmias noted overnight. Dr. Asher plans to remove the temporary pacemaker this morning. Patient is having chronic pain of joints, shoulders and back. No chest pain since intervention occurred. Will reintroduce his multiple narcotics from home immediately to better control his pain. Anemia is stable overnight. Platelet count has improved from 71 - 94 (long-standing history of thrombocytopenia). Will check another troponin tomorrow morning. Eliquis has been held post cath. We will restart tomorrow. Patient is on IV Cardizem for atrial fibrillation with rapid ventricular response. Rate is much better controlled. I will transition to oral short acting calcium channel nam and wean off IV Cardizem. 2016: Patient continues to improve slowly. He is significantly debilitated. His chest pain has improved. Patient was transitioned off IV Cardizem and is tolerating oral calcium channel nam without problems. Heart rates 90s. During the night, he did have one episode of faster heart rates around 120 bpm with this seems to have resolved. Creatinine continues to increase at 2.2. According to daily weights recorded, no real change in weight overnight. May be transferred to telemetry with close monitoring. Will further discuss with Dr. Asher and await additional recommendations. Will verify case management is working toward discharge plans. Patient will need LTAC versus swing bed at discharge, I suspect. 2016: Vital signs are stable this morning. Continues to have a few breakthrough episodes of A. fib with RVR during the night but otherwise heart rates are well controlled. Transition to long acting CCB in the morning. Tomorrow morning, restart Eliquis for stroke prevention but monitor labs closely. Creatinine remained stable at 2.1. Hopefully, patient will be getting to a telemetry bed soon. This morning, will adjust insulin doses. He has had significantly elevated blood glucose levels however it is felt that these were postprandial. This morning blood glucose was 76 prior to breakfast. Will adjust insulin accordingly. Case management is working for possible discharge to LTAC or SNF. Further discuss with Dr. Asher and await additional recommendations. LIMPRESSION/PLAN: 1. NSTEMI - continue Aspirin, Plavix, beta-nam, and Crestor. Avoiding ARB /MARLENE due to mildly worsened renal insufficiency 2. KNOWN CAD STATUS POST CABG 3 - see heart catheterization report. Continue with appropriate medication regimen listed above. 3. HYPERTENSION - adequately controlled. May increase iesha blocking agents as needed for rate control. 4. DYSLIPIDEMIA - LDL 74. Continue Crestor. 5. DIABETES - adjusting insulin dose for recent lower blood glucose levels. 6. ATRIAL FIBRILLATION - RVR overnight, now rate controlled. Start long- acting CCB in a.m. Will reincorporate Eliquis starting tomorrow morning. 7. HIGH RISK MEDICATION (ELIQUIS) - starting Friday morning for stroke prevention. 8. ANEMIA - seems to be stable. Will restart Eliquis tomorrow morning. 9. THROMBOCYTOPENIA - Long standing history as listed in labs in [facility]. Continue current plan of care. Labs stable 10. CKD, STAGE III - follow BMP daily. Creatinine stable. 11. ASYSTOLE - occurred after intervention thought to be related to stimulation of the bundle with the right coronary catheter. No additional arrhythmias overnight status post temporary pacemaker implantation. No additional arrhythmias after pacemaker removed 12. ICM - EF 35%. Will continue betablocker, hold ARB for now. Monitor creatinine. Exam (Progress Note) - Constitutional Vitals: Period Temp Pulse Resp BP Sys/Nguyen Pulse Ox Last 24 Hr 96.9 F-98.9 F 80-98 13-20 101-149/57-86 95-98 Exam: General: [Appears well with no apparent distress.] [Pleasant and cooperative. ] [Appears comfortable.] HEENT: [PERRL, normocephalic, atraumatic. Mucous membranes moist. No jaundice noted. Conjunctiva moist and clear, sclerae anicteric] Neck: No obvious JVD/HJR, no thyromegaly or lymphadenopathy noted. No carotid bruit appreciated Cardiac: [Irregularly irregular rhythm, controlled rate ] [No obvious murmur rub or gallop.] Lungs: [Clear to auscultation without accessory muscle use to assist the respiratory pattern.] Oxygen in use via nasal cannula Abdomen: Soft, bowel sounds normoactive. Nontender and nondistended. No abdominal bruit or thrill noted. No masses noted. Musculoskeletal: No fluid collection. Decreased range of motion is noted. Extremities: Right groin soft, no hematoma. No clubbing, cyanosis noted. [ No edema noted.] Upper extremity pulses 2+. Lower extremity pulses 2+. Capillary refill less than 3 seconds. Skin: No unusual lesions or rashes. No skin breakdown appreciated. Neuro: Awake, alert and oriented 3. Moves all extremities well without hemiparesis or paralysis. No essential tremor is appreciated. Result/EKG - Labs CBC & BMP: 01/10/17 04:13 01/10/17 04:13 Lab Results: I have reviewed the past 24 hour labs Labs: Laboratory Results - last 24 hr 01/09/17 01/09/17 01/09/17 11:15 14:59 20:59 WBC RBC Hgb Hct MCV MCH MCHC RDW Plt Count MPV Neut % (Auto) Lymph % (Auto) [place] % (Auto) Eos % (Auto) Baso % (Auto) Neut # (Auto) Lymph # (Auto) [place] # (Auto) Eos # (Auto) Baso # (Auto) Total Counted Immature Gran % Nucleated RBC % Immature Gran # Segmented Neutrophils Lymphocytes Monocytes Eosinophils Nucleated RBCs # Platelet Estimate Immature Plt Fraction Hypochromasia Microcytosis Ovalocytes Morphology Comment Sodium Potassium Chloride Carbon Dioxide Anion Gap BUN Creatinine GFR Calculation BUN/Creatinine Ratio Glucose POC Glucose 169 H 100 337 H Calculated Osmolality Calcium Magnesium Total Bilirubin AST ALT Alkaline Phosphatase Total Protein Albumin Globulin Albumin/Globulin Ratio 01/09/17 01/10/17 01/10/17 23:55 04:13 04:13 WBC 5.4 D RBC 4.07 Hgb 10.2 L Hct 32.6 L MCV 80.1 L MCH 25 L MCHC 31.3 L RDW 15.9 Plt Count 82 L D MPV 10.6 Neut % (Auto) 61.6 Lymph % (Auto) 26.9 [place] % (Auto) 9.4 Eos % (Auto) 1.1 Baso % (Auto) 0.4 Neut # (Auto) 3.4 Lymph # (Auto) 1.5 [place] # (Auto) 0.5 Eos # (Auto) 0.1 Baso # (Auto) 0.0 Total Counted 100 Immature Gran % 0.6 Nucleated RBC % 0.0 Immature Gran # 0.03 Segmented Neutrophils 63 Lymphocytes 30 Monocytes 6 Eosinophils 1 Nucleated RBCs # 0.00 Platelet Estimate Decreased Immature Plt Fraction 0.0 Hypochromasia 1+ Microcytosis Slight Ovalocytes Slight Morphology Comment Sodium 137 Potassium 4.1 Chloride 100 Carbon Dioxide 30 Anion Gap 11.1 BUN 28 H Creatinine 2.10 H GFR Calculation 36 BUN/Creatinine Ratio 13.00 Glucose 196 H POC Glucose 303 H Calculated Osmolality 283.8 Calcium 8.2 L Magnesium 2.5 H Total Bilirubin AST ALT Alkaline Phosphatase Total Protein Albumin Globulin Albumin/Globulin Ratio 01/10/17 01/10/17 04:13 07:20 WBC RBC Hgb Hct MCV MCH MCHC RDW Plt Count MPV Neut % (Auto) Lymph % (Auto) [place] % (Auto) Eos % (Auto) Baso % (Auto) Neut # (Auto) Lymph # (Auto) [place] # (Auto) Eos # (Auto) Baso # (Auto) Total Counted Immature Gran % Nucleated RBC % Immature Gran # Segmented Neutrophils Lymphocytes Monocytes Eosinophils Nucleated RBCs # Platelet Estimate Immature Plt Fraction Hypochromasia Microcytosis Ovalocytes Morphology Comment Sodium 137 Potassium 4.1 Chloride 100 Carbon Dioxide 30 Anion Gap 11.1 BUN 27 H Creatinine 2.10 H GFR Calculation 36 BUN/Creatinine Ratio 12.00 Glucose 194 H POC Glucose 76 Calculated Osmolality 282.8 Calcium 8.3 L Magnesium Total Bilirubin 1.80 H AST 39 H ALT 13 L Alkaline Phosphatase 66 Total Protein 5.7 L Albumin 2.6 L Globulin 3.1 Albumin/Globulin Ratio 0.8 L - EKG EKG results: interpreted by me EKG shows: atrial fibrillation Quality Measures - VTE Contraindication to Pharmacological VTE Prophylaxis: High Risk of Bleeding - Stroke Symptom Onset Unknown: No Specialty Discharge - Follow Up or Referrals <Jason Asher - Last Filed: 01/10/17 16:36> Cardiology - PN: Subj Interval history: I have discussed in detail the particulars of this case and I have examined the patient and reviewed the patient's chart both current and old. I was directly involved in the patient's evaluation and management and I completely agree with Daina Cuevas NP regarding this patient's evaluation and treatment plan. Exam (Progress Note) - Constitutional Vitals: Period Temp Pulse Resp BP Sys/Nguyen Pulse Ox Last 24 Hr 96.9 F-98.9 F 76-98 13-20 101-149/65-86 95-99 Result/EKG - Labs CBC & BMP: 01/10/17 04:13 01/10/17 04:13 Labs: Laboratory Results - last 24 hr 01/09/17 01/09/17 01/09/17 14:59 20:59 23:55 WBC RBC Hgb Hct MCV MCH MCHC RDW Plt Count MPV Neut % (Auto) Lymph % (Auto) [place] % (Auto) Eos % (Auto) Baso % (Auto) Neut # (Auto) Lymph # (Auto) [place] # (Auto) Eos # (Auto) Baso # (Auto) Total Counted Immature Gran % Nucleated RBC % Immature Gran # Segmented Neutrophils Lymphocytes Monocytes Eosinophils Nucleated RBCs # Platelet Estimate Immature Plt Fraction Hypochromasia Microcytosis Ovalocytes Morphology Comment Sodium Potassium Chloride Carbon Dioxide Anion Gap BUN Creatinine GFR Calculation BUN/Creatinine Ratio Glucose POC Glucose 100 337 H 303 H Calculated Osmolality Calcium Magnesium Total Bilirubin AST ALT Alkaline Phosphatase Total Protein Albumin Globulin Albumin/Globulin Ratio 01/10/17 01/10/17 01/10/17 04:13 04:13 04:13 WBC 5.4 D RBC 4.07 Hgb 10.2 L Hct 32.6 L MCV 80.1 L MCH 25 L MCHC 31.3 L RDW 15.9 Plt Count 82 L D MPV 10.6 Neut % (Auto) 61.6 Lymph % (Auto) 26.9 Roberts % (Auto) 9.4 Eos % (Auto) 1.1 Baso % (Auto) 0.4 Neut # (Auto) 3.4 Lymph # (Auto) 1.5 Roberts # (Auto) 0.5 Eos # (Auto) 0.1 Baso # (Auto) 0.0 Total Counted 100 Immature Gran % 0.6 Nucleated RBC % 0.0 Immature Gran # 0.03 Segmented Neutrophils 63 Lymphocytes 30 Monocytes 6 Eosinophils 1 Nucleated RBCs # 0.00 Platelet Estimate Decreased Immature Plt Fraction 0.0 Hypochromasia 1+ Microcytosis Slight Ovalocytes Slight Morphology Comment Sodium 137 137 Potassium 4.1 4.1 Chloride 100 100 Carbon Dioxide 30 30 Anion Gap 11.1 11.1 BUN 28 H 27 H Creatinine 2.10 H 2.10 H GFR Calculation 36 36 BUN/Creatinine Ratio 13.00 12.00 Glucose 196 H 194 H POC Glucose Calculated Osmolality 283.8 282.8 Calcium 8.2 L 8.3 L Magnesium 2.5 H Total Bilirubin 1.80 H AST 39 H ALT 13 L Alkaline Phosphatase 66 Total Protein 5.7 L Albumin 2.6 L Globulin 3.1 Albumin/Globulin Ratio 0.8 L 01/10/17 01/10/17 01/10/17 07:20 11:30 16:04 WBC RBC Hgb Hct MCV MCH MCHC RDW Plt Count MPV Neut % (Auto) Lymph % (Auto) [place] % (Auto) Eos % (Auto) Baso % (Auto) Neut # (Auto) Lymph # (Auto) [place] # (Auto) Eos # (Auto) Baso # (Auto) Total Counted Immature Gran % Nucleated RBC % Immature Gran # Segmented Neutrophils Lymphocytes Monocytes Eosinophils Nucleated RBCs # Platelet Estimate Immature Plt Fraction Hypochromasia Microcytosis Ovalocytes Morphology Comment Sodium Potassium Chloride Carbon Dioxide Anion Gap BUN Creatinine GFR Calculation BUN/Creatinine Ratio Glucose POC Glucose 76 225 H 348 H Calculated Osmolality Calcium Magnesium Total Bilirubin AST ALT Alkaline Phosphatase Total Protein Albumin Globulin Albumin/Globulin Ratio
[2017-01-10] MEDS: ROSUVASTATIN 20 MG TABLET PO SCH (21:21)
[2017-01-10] MEDS: ZINC GLUCONATE 50 MG TABLET PO SCH (21:21)
[2017-01-10] MEDS: APIXABAN 5 MG TABLET PO SCH (21:22)
[2017-01-10] MEDS: INSULIN GLARGINE 100 UNIT/ML SUBCUT SCH (21:22)
[2017-01-10] MEDS: MIRTAZAPINE 30 MG TABLET PO SCH (21:27)
[2017-01-10] MEDS: CITALOPRAM 20 MG TABLET PO SCH (21:27)
[2017-01-11 04:11] LABS: Basophils % 0.3 % (0.0-0.8); Eosinophils # 0.1 10*3/uL (0.0-0.87); Eosinophils % 2.4 % (0.00-10.9); Hematocrit 31.3 VOL% (42.0-52.0); Immature Granulocytes % 0.3 %; Immature Granulocytes Absolute 0.01 #; Lymphocytes % 27.1 % (21.2-54.2); Mean Corpuscular HGB Conc 31.9 GM/DL (32-36); Mean Corpuscular Hemoglobin 26 PG (27-34); Mean Corpuscular Volume 80.1 FL (87-102); Mean Platelet Volume 10.3 FL (9.6-12.0); Monocytes # 0.3 10*3/uL (0.11-0.8); Monocytes % 8.7 % (1.7-12.7); Neutrophils # 2.3 10*3/uL (1.4-7.4); Neutrophils % 61.2 % (38.7-73.9); Platelet Count 82 T/CUMM (130-400); Red Blood Count 3.91 MC/CUMM (3.8-5.5); Red Cell Distribution Width 15.9 % (9.3-17.3); White Blood Count 3.7 T/CUMM (4-12)
[2017-01-11 04:45] LABS: Calcium 8.2 MG/DL (8.5-10.1); Magnesium 2.3 MG/DL (1.8-2.4); Osmolality,Calculated 286.8 MOS/KG (273-304); Potassium 4.1 MMOL/L (3.5-5.1)
[2017-01-11] MEDS: ASPIRIN EC 81 MG TABLET PO SCH (09:09)
[2017-01-11] MEDS: MUPIROCIN 2% OINT 22 GM TUBE TOP SCH ×2 (09:10→20:48)
[2017-01-11] MEDS: DILTIAZEM CD 120 MG CAPSULE PO SCH (09:10)
[2017-01-11] MEDS: OXYBUTYNIN 5 MG TABLET PO SCH ×2 (09:11→20:41)
[2017-01-11] MEDS: RANOLAZINE 500 MG TABLET PO SCH ×2 (09:11→20:42)
[2017-01-11] MEDS: DOCUSATE SODIUM 100 MG CAPSULE PO SCH (09:11)
[2017-01-11] MEDS: MAGNESIUM OXIDE 400 MG TABLET PO SCH ×2 (09:12→20:42)
[2017-01-11] MEDS: ASCORBIC ACID 500 MG TABLET PO SCH ×2 (09:12→20:40)
[2017-01-11] MEDS: FUROSEMIDE 40 MG TABLET PO SCH (09:12)
[2017-01-11] MEDS: CLOPIDOGREL 75 MG TABLET PO SCH (09:13)
[2017-01-11] MEDS: clonazePAM 0.5 MG TABLET PO SCH ×2 (09:13→20:43)
[2017-01-11] MEDS: PANTOPRAZOLE 40 MG TABLET PO SCH (09:13)
[2017-01-11] MEDS: APIXABAN 5 MG TABLET PO SCH ×2 (09:13→20:40)
[2017-01-11] MEDS: GABAPENTIN 600 MG TABLET PO SCH (09:13)
[2017-01-11] MEDS: METOPROLOL TARTRATE 25 MG TABLET PO SCH ×2 (09:13→20:42)
[2017-01-11] MEDS: INSULIN NPH/REGULAR 70/30 100 UNIT/ML SUBCUT SCH ×2 (09:14→18:14)
[2017-01-11] MEDS: INSULIN REGULAR 100 UNIT/ML SUBCUT SCH ×4 (09:16→20:44)
--- NOTE | 2017-01-11 10:32 | Cardiology Progress Note ---
Assessment and Plan (1) Ischemic cardiomyopathy Status: Acute Assessment and plan: Patient is clinically stable. We will move him to the floor increase his activity hopefully can discharge him fairly soon. Current Visit: Yes (2) Diabetes Status: Chronic Current Visit: Yes (3) Dyslipidemia Status: Chronic Current Visit: Yes (4) S/P CABG x 3 Status: Chronic Current Visit: Yes Cardiology - PN: Subj Interval history: HOSPITAL PHARMACY DIRECTOR: DR. DOHERTY SUMMARY: Mr. Oliver, 76WM, with risk factors significant for: age, known CAD (S /P CABG 3 several years ago, report unavailable), hypertension, dyslipidemia, diabetes, CVA, sedentary lifestyle. History of atrial fibrillation for which he takes Eliquis for stroke prevention. Admitted January 07, 2017 with NSTEMI. He was taken urgently to the cardiac lab where Dr. Asher performed heart catheterization the following noted: CONCLUSIONS: 1: Severe diffuse [place] multivessel coronary artery disease 2: 2 of 3 grafts patent with occlusion of the right coronary vein graft now supplied with good collaterals from the circumflex marginal (via the bypass) to the right coronary artery 3: Distal right coronary disease likely the index event with occlusion of the posterolateral branch 4: Episode of asystole now with a temporary pacemaker for close observation. 5: Ischemic cardiomyopathy ejection fraction 35% 6: Minx closure right femoral arteriotomy site DISCUSSION/RECOMMENDATIONS: The only finding which looks recent is occlusion of the posterior lateral branch of the right coronary artery. That is likely the cause of his recent event. It is not approachable with percutaneous coronary intervention. The patient had an episode of asystole which was thought to be related to stimulation of the bundle with the right coronary catheter. He recovered his rhythm spontaneously after a prolonged asystolic episode. A temporary pacemaker was placed in order to observe this overnight. 2016: No additional arrhythmias noted overnight. Dr. Asher plans to remove the temporary pacemaker this morning. Patient is having chronic pain of joints, shoulders and back. No chest pain since intervention occurred. Will reintroduce his multiple narcotics from home immediately to better control his pain. Anemia is stable overnight. Platelet count has improved from 71 - 94 (long-standing history of thrombocytopenia). Will check another troponin tomorrow morning. Eliquis has been held post cath. We will restart tomorrow. Patient is on IV Cardizem for atrial fibrillation with rapid ventricular response. Rate is much better controlled. I will transition to oral short acting calcium channel nam and wean off IV Cardizem. 2016: Patient continues to improve slowly. He is significantly debilitated. His chest pain has improved. Patient was transitioned off IV Cardizem and is tolerating oral calcium channel nam without problems. Heart rates 90s. During the night, he did have one episode of faster heart rates around 120 bpm with this seems to have resolved. Creatinine continues to increase at 2.2. According to daily weights recorded, no real change in weight overnight. May be transferred to telemetry with close monitoring. Will further discuss with Dr. Asher and await additional recommendations. Will verify case management is working toward discharge plans. Patient will need LTAC versus swing bed at discharge, I suspect. 2016: Vital signs are stable this morning. Continues to have a few breakthrough episodes of A. fib with RVR during the night but otherwise heart rates are well controlled. Transition to long acting CCB in the morning. Tomorrow morning, restart Eliquis for stroke prevention but monitor labs closely. Creatinine remained stable at 2.1. Hopefully, patient will be getting to a telemetry bed soon. This morning, will adjust insulin doses. He has had significantly elevated blood glucose levels however it is felt that these were postprandial. This morning blood glucose was 76 prior to breakfast. Will adjust insulin accordingly. Case management is working for possible discharge to LTAC or SNF. Further discuss with Dr. Asher and await additional recommendations. January 11, 2017: Patient continues with stable vital signs. He has no anginal chest pain. We are starting his Eliquis back today. His creatinine has been stable and we will get him up ambulatory likely discharge him first part of the week. Exam (Progress Note) - Constitutional Vitals: Period Temp Pulse Resp BP Sys/Nguyen Pulse Ox Last 24 Hr 97 F-98.2 F 76-91 15-25 114-155/65-102 95-99 Exam: General:no acute distress. alert and oriented, mood and affect are normal HEENT: no new lesions, sclerae are clear, mouth and pharynx benign Neck: supple, trachea midline, no JVD noted Lungs: no rales ronchi or wheeze is noted. pt comfortable without accesory muscle use to assist with breathing CV: RRR no murmur rub or gallop is noted. Abd: soft and nontender, BSNA, no masses. Ext: no cyanosis, clubbing or edema Neuro: grossly intact without focal neurologic deficit. Result/EKG - Labs CBC & BMP: 01/11/17 03:53 01/11/17 03:53 Labs: Laboratory Results - last 24 hr 01/10/17 01/10/17 01/10/17 11:30 16:04 20:13 WBC RBC Hgb Hct MCV MCH MCHC RDW Plt Count MPV Neut % (Auto) Lymph % (Auto) [place] % (Auto) Eos % (Auto) Baso % (Auto) Neut # (Auto) Lymph # (Auto) [place] # (Auto) Eos # (Auto) Baso # (Auto) Immature Gran % Nucleated RBC % Immature Gran # Nucleated RBCs # Immature Plt Fraction Sodium Potassium Chloride Carbon Dioxide Anion Gap BUN Creatinine GFR Calculation BUN/Creatinine Ratio Glucose POC Glucose 225 H 348 H 399 H Calculated Osmolality Calcium Magnesium 01/11/17 01/11/17 01/11/17 03:53 03:53 07:44 WBC 3.7 L D RBC 3.91 Hgb 10.0 L Hct 31.3 L MCV 80.1 L MCH 26 L MCHC 31.9 L RDW 15.9 Plt Count 82 L MPV 10.3 Neut % (Auto) 61.2 Lymph % (Auto) 27.1 [place] % (Auto) 8.7 Eos % (Auto) 2.4 Baso % (Auto) 0.3 Neut # (Auto) 2.3 Lymph # (Auto) 1.0 L [place] # (Auto) 0.3 Eos # (Auto) 0.1 Baso # (Auto) 0.0 Immature Gran % 0.3 Nucleated RBC % 0.0 Immature Gran # 0.01 Nucleated RBCs # 0.00 Immature Plt Fraction 0.0 Sodium 137 Potassium 4.1 Chloride 100 Carbon Dioxide 29 Anion Gap 12.1 BUN 26 H Creatinine 1.90 H GFR Calculation 41 BUN/Creatinine Ratio 13.00 Glucose 265 H POC Glucose 180 H Calculated Osmolality 286.8 Calcium 8.2 L Magnesium 2.3 Quality Measures - VTE Contraindication to Pharmacological VTE Prophylaxis: High Risk of Bleeding - Stroke Symptom Onset Unknown: No Specialty Discharge - Follow Up or Referrals
[2017-01-11] MEDS: ZINC GLUCONATE 50 MG TABLET PO SCH (20:41)
[2017-01-11] MEDS: CITALOPRAM 20 MG TABLET PO SCH (20:41)
[2017-01-11] MEDS: ROSUVASTATIN 20 MG TABLET PO SCH (20:42)
[2017-01-11] MEDS: oxyCODONE/ACETAMINOPHEN 5-325 MG TABLET PO PRN (20:43)
[2017-01-11] MEDS: INSULIN GLARGINE 100 UNIT/ML SUBCUT SCH (20:44)
[2017-01-11] MEDS: MIRTAZAPINE 30 MG TABLET PO SCH (21:03)
[2017-01-12 04:50] LABS: Basophils % 0.3 % (0.0-0.8); Eosinophils # 0.1 10*3/uL (0.0-0.87); Eosinophils % 3.7 % (0.00-10.9); Hematocrit 31.7 VOL% (42.0-52.0); Hemoglobin 10.1 GM/DL (14.0-18.0); Immature Granulocytes % 0.3 %; Immature Granulocytes Absolute 0.01 #; Lymphocytes # 1.1 10*3/uL (1.4-4.0); Lymphocytes % 32.3 % (21.2-54.2); Mean Corpuscular HGB Conc 31.9 GM/DL (32-36); Mean Corpuscular Hemoglobin 26 PG (27-34); Mean Corpuscular Volume 80.1 FL (87-102); Mean Platelet Volume 10.4 FL (9.6-12.0); Monocytes # 0.3 10*3/uL (0.11-0.8); Monocytes % 9.6 % (1.7-12.7); Neutrophils # 1.9 10*3/uL (1.4-7.4); Neutrophils % 53.8 % (38.7-73.9); Platelet Count 87 T/CUMM (130-400); Red Blood Count 3.96 MC/CUMM (3.8-5.5); Red Cell Distribution Width 15.8 % (9.3-17.3); White Blood Count 3.5 T/CUMM (4-12)
[2017-01-12 05:19] LABS: Calcium 8.2 MG/DL (8.5-10.1); Magnesium 2.3 MG/DL (1.8-2.4); Osmolality,Calculated 287.4 MOS/KG (273-304); Potassium 3.5 MMOL/L (3.5-5.1)
[2017-01-12 07:38] LABS: Eosinophils 2 % (0-10); Hypochromasia 2+; Lymphocytes 31 % (20-55); Microcytosis 1+; Platelet Estimate Decreased; Segmented Neutrophils 60 % (50-85); Total Cells Counted 100
[2017-01-12] MEDS: DILTIAZEM CD 120 MG CAPSULE PO SCH (08:52)
[2017-01-12] MEDS: CLOPIDOGREL 75 MG TABLET PO SCH (08:52)
[2017-01-12] MEDS: MAGNESIUM OXIDE 400 MG TABLET PO SCH ×2 (08:52→22:29)
[2017-01-12] MEDS: MUPIROCIN 2% OINT 22 GM TUBE TOP SCH ×2 (08:52→22:25)
[2017-01-12] MEDS: OXYBUTYNIN 5 MG TABLET PO SCH ×2 (08:52→22:30)
[2017-01-12] MEDS: GABAPENTIN 600 MG TABLET PO SCH (08:52)
[2017-01-12] MEDS: ASPIRIN EC 81 MG TABLET PO SCH (08:52)
[2017-01-12] MEDS: DOCUSATE SODIUM 100 MG CAPSULE PO SCH (08:53)
[2017-01-12] MEDS: PANTOPRAZOLE 40 MG TABLET PO SCH (08:53)
[2017-01-12] MEDS: APIXABAN 5 MG TABLET PO SCH ×2 (08:53→22:30)
[2017-01-12] MEDS: METOPROLOL TARTRATE 25 MG TABLET PO SCH ×2 (08:53→22:30)
[2017-01-12] MEDS: FUROSEMIDE 40 MG TABLET PO SCH (08:54)
[2017-01-12] MEDS: INSULIN NPH/REGULAR 70/30 100 UNIT/ML SUBCUT SCH ×2 (08:54→18:06)
[2017-01-12] MEDS: clonazePAM 0.5 MG TABLET PO SCH ×2 (08:54→22:26)
[2017-01-12] MEDS: INSULIN REGULAR 100 UNIT/ML SUBCUT SCH ×4 (08:55→22:32)
[2017-01-12] MEDS: RANOLAZINE 500 MG TABLET PO SCH ×2 (09:06→22:30)
[2017-01-12] MEDS: ASCORBIC ACID 500 MG TABLET PO SCH ×2 (09:06→22:28)
--- NOTE | 2017-01-12 10:34 | Cardiology Progress Note ---
Assessment and Plan (1) Ischemic cardiomyopathy Status: Acute Assessment and plan: Patient is clinically stable. We will move him to the floor increase his activity hopefully can discharge him fairly soon. Current Visit: Yes (2) Diabetes Status: Chronic Current Visit: Yes (3) Dyslipidemia Status: Chronic Current Visit: Yes (4) S/P CABG x 3 Status: Chronic Current Visit: Yes Cardiology - PN: Subj Interval history: The only finding which looks recent is occlusion of the posterior lateral branch of the right coronary artery. That is likely the cause of his recent event. It is not approachable with percutaneous coronary intervention. The patient had an episode of asystole which was thought to be related to stimulation of the bundle with the right coronary catheter. He recovered his rhythm spontaneously after a prolonged asystolic episode. A temporary pacemaker was placed in order to observe this overnight. 2016: No additional arrhythmias noted overnight. Dr. Asher plans to remove the temporary pacemaker this morning. Patient is having chronic pain of joints, shoulders and back. No chest pain since intervention occurred. Will reintroduce his multiple narcotics from home immediately to better control his pain. Anemia is stable overnight. Platelet count has improved from 71 - 94 (long-standing history of thrombocytopenia). Will check another troponin tomorrow morning. Eliquis has been held post cath. We will restart tomorrow. Patient is on IV Cardizem for atrial fibrillation with rapid ventricular response. Rate is much better controlled. I will transition to oral short acting calcium channel nam and wean off IV Cardizem. 2016: Patient continues to improve slowly. He is significantly debilitated. His chest pain has improved. Patient was transitioned off IV Cardizem and is tolerating oral calcium channel nam without problems. Heart rates 90s. During the night, he did have one episode of faster heart rates around 120 bpm with this seems to have resolved. Creatinine continues to increase at 2.2. According to daily weights recorded, no real change in weight overnight. May be transferred to telemetry with close monitoring. Will further discuss with Dr. Asher and await additional recommendations. Will verify case management is working toward discharge plans. Patient will need LTAC versus swing bed at discharge, I suspect. 2016: Vital signs are stable this morning. Continues to have a few breakthrough episodes of A. fib with RVR during the night but otherwise heart rates are well controlled. Transition to long acting CCB in the morning. Tomorrow morning, restart Eliquis for stroke prevention but monitor labs closely. Creatinine remained stable at 2.1. Hopefully, patient will be getting to a telemetry bed soon. This morning, will adjust insulin doses. He has had significantly elevated blood glucose levels however it is felt that these were postprandial. This morning blood glucose was 76 prior to breakfast. Will adjust insulin accordingly. Case management is working for possible discharge to LTAC or SNF. Further discuss with Dr. Asher and await additional recommendations. January 11, 2017: Patient continues with stable vital signs. He has no anginal chest pain. We are starting his Eliquis back today. His creatinine has been stable and we will get him up ambulatory likely discharge him first part of the week. January 12: Patient is a stable and doing well. We will have him set for discharge in the morning. We will get him up to the chair and check lab work in the morning anticipating discharge. Exam (Progress Note) - Constitutional Vitals: Period Temp Pulse Resp BP Sys/Nguyen Pulse Ox Last 24 Hr 97.3 F-98.5 F 67-84 17-20 123-154/60-89 92-100 Exam: General:no acute distress. alert and oriented, mood and affect are normal HEENT: no new lesions, sclerae are clear, mouth and pharynx benign Neck: supple, trachea midline, no JVD noted Lungs: no rales ronchi or wheeze is noted. pt comfortable without accesory muscle use to assist with breathing CV: RRR no murmur rub or gallop is noted. Abd: soft and nontender, BSNA, no masses. Ext: no cyanosis, clubbing or edema Neuro: grossly intact without focal neurologic deficit. Result/EKG - Labs CBC & BMP: 01/12/17 04:14 01/12/17 04:14 Labs: Laboratory Results - last 24 hr 01/11/17 01/11/17 01/11/17 13:55 16:21 20:13 WBC RBC Hgb Hct MCV MCH MCHC RDW Plt Count MPV Neut % (Auto) Lymph % (Auto) [place] % (Auto) Eos % (Auto) Baso % (Auto) Neut # (Auto) Lymph # (Auto) [place] # (Auto) Eos # (Auto) Baso # (Auto) Total Counted Immature Gran % Nucleated RBC % Immature Gran # Segmented Neutrophils Lymphocytes Monocytes Eosinophils Nucleated RBCs # Platelet Estimate Immature Plt Fraction Hypochromasia Microcytosis Sodium Potassium Chloride Carbon Dioxide Anion Gap BUN Creatinine GFR Calculation BUN/Creatinine Ratio Glucose POC Glucose 216 H 294 H 314 H Calculated Osmolality Calcium Magnesium 01/12/17 01/12/17 01/12/17 04:14 04:14 07:14 WBC 3.5 L RBC 3.96 Hgb 10.1 L Hct 31.7 L MCV 80.1 L MCH 26 L MCHC 31.9 L RDW 15.8 Plt Count 87 L MPV 10.4 Neut % (Auto) 53.8 Lymph % (Auto) 32.3 [place] % (Auto) 9.6 Eos % (Auto) 3.7 Baso % (Auto) 0.3 Neut # (Auto) 1.9 Lymph # (Auto) 1.1 L [place] # (Auto) 0.3 Eos # (Auto) 0.1 Baso # (Auto) 0.0 Total Counted 100 Immature Gran % 0.3 Nucleated RBC % 0.0 Immature Gran # 0.01 Segmented Neutrophils 60 Lymphocytes 31 Monocytes 7 Eosinophils 2 Nucleated RBCs # 0.00 Platelet Estimate Decreased Immature Plt Fraction 0.0 Hypochromasia 2+ Microcytosis 1+ Sodium 140 Potassium 3.5 Chloride 101 Carbon Dioxide 34 H Anion Gap 8.5 BUN 23 H Creatinine 1.90 H GFR Calculation 41 BUN/Creatinine Ratio 12.00 Glucose 187 H POC Glucose 172 H Calculated Osmolality 287.4 Calcium 8.2 L Magnesium 2.3 Quality Measures - VTE Contraindication to Pharmacological VTE Prophylaxis: High Risk of Bleeding - Stroke Symptom Onset Unknown: No Specialty Discharge - Follow Up or Referrals
[2017-01-12] MEDS ORDERED: COCAINE SUBSTITUTE 30 ML BOTTLE TOP ONE ×2 (15:36→16:20)
[2017-01-12] MEDS ORDERED: SILVER NITRATE STICK 1 EACH TOP ONE ×2 (15:52→16:17)
--- NOTE | 2017-01-12 16:06 | Consultation ---
Assessment and Plan - Time spent with patient Time spent with patient: Greater than 30 minutes (1) Anterior epistaxis Problem details: applied topical anesthesia/vasoconstriction, noted slight capillary oozing from superficially inflammed area on right septum. applied silver nitrate, followed by Surgicel packing. Status: Acute Assessment and plan: right anterior epistaxis-controlled with chemical cautery/packing. Keep head elevated. No lifting, straining, nose-blowing. Sneeze with the mouth open. Begin OTC Simply Saline misting to both nares. Notify Dr. Zamarripa in a.m., to follow and arrange f/u. Call if any further bleeding overnight. Use humidified facemask oxygen now. Current Visit: Yes History of Present Illness - Data of Consult Consult date: 01/12/17 Requesting Physician: Jason Asher - Consult Narrative Reason for consult: epistaxis History of present illness: Mr. Oliver is a 76 year old male with onset of right anterior epistaxis this am , two episodes controlled by local measure of holding head back, pinching nasal bones and icepack to face. Asked by cardiology to see patient, pack his nose ( per nurses report). Patient denies preexisting nasal issues, has been on nasal O2 while hospitalized. Now on Eliquus, clopidogrel, and aspirin for cardiac issues. CC: Jason Asher MD - Home Medications and Allergies Home Medications: Home Medications Medication Instructions Recorded Confirmed Type Aspirin [Ecotrin] 81 mg PO MOFR@0900 05/03/15 01/07/17 History Citalopram [CeleXA] 30 mg PO BEDTIME 05/03/15 01/07/17 History Cyanocobalamin Inj [Vitamin B12 1,000 mcg IM Q30D 05/03/15 01/07/17 History Inj] Docusate Sodium Cap [Colace Cap] 100 mg PO QAM 05/03/15 01/07/17 History Gabapentin Cap/Tab [Neurontin 600 mg PO DAILY 05/03/15 01/07/17 History Cap/Tab] Magnesium Oxide 400 mg PO BID 05/03/15 01/07/17 History Mirtazapine [Remeron] 30 mg PO BEDTIME 05/03/15 01/07/17 History Oxycodone HCl/Acetaminophen 1 each PO TID PRN 05/03/15 01/07/17 History [Percocet 10-325 mg Tablet] Rosuvastatin [Crestor] 20 mg PO BEDTIME 05/03/15 01/07/17 History Zinc 50 mg PO BEDTIME 05/03/15 01/07/17 History oxyCODONE ER [OxyCONTIN] 10 mg PO Q12HR 05/03/15 01/07/17 History tiZANidine [Zanaflex] 4 mg PO BID PRN 05/03/15 01/07/17 History Cetirizine Tab [ZyrTEC Tab] 10 mg PO DAILY PRN 05/25/15 01/07/17 History Insulin Regular [HumuLIN R] 1 unit SUBCUT Q6H PRN 05/25/15 01/07/17 History Meclizine [Antivert] 25 mg PO QID PRN 05/25/15 01/07/17 History Nitroglycerin Sl Tab [Nitrostat] 0.4 mg SL Q5M PRN 05/25/15 01/07/17 History Pantoprazole Tab [Protonix Tab] 40 mg PO DAILY 05/25/15 01/07/17 History Promethazine Tab [Phenergan Tab] 25 mg PO Q4H PRN 05/25/15 01/07/17 History Apixaban [Eliquis] 5 mg PO BID 07/19/15 01/07/17 History Insulin Glargine,Hum.rec.anlog 30 units SUBCUT BEDTIME 07/19/15 01/07/17 History [Lantus SoloStar] Insulin NPH Hum/Reg Insulin Hm 30 unit SUBCUT QPM 07/19/15 01/07/17 History [NovoLIN 70/30] Insulin NPH Hum/Reg Insulin Hm 50 unit SUBCUT QAM 07/19/15 01/07/17 History [NovoLIN 70/30] Metoprolol Tartrate Tab [Lopressor 50 mg PO BID 07/19/15 01/07/17 History Tab] Ondansetron [Ondansetron Odt] 4 mg PO BID PRN 07/19/15 01/07/17 History Ranolazine [Ranexa] 500 mg PO BID 07/19/15 01/07/17 History Oxybutynin [Ditropan] 5 mg PO BID 10/18/15 01/07/17 History Sennosides [Senna] 8.6 mg PO DAILY PRN 10/18/15 01/07/17 History clonazePAM [Clonazepam] 1 mg PO BID 10/18/15 01/07/17 History Diltiazem Tab [Cardizem Tab] 60 mg PO BID W/MEALS 01/07/17 01/07/17 History Fluticasone 50 Mcg Nasal [place] 2 spray BOTH NARES DAILY PRN 01/07/17 01/07/17 History [Flonase Nasal [place]] Allergies/Adverse Reactions: Allergies Allergy/AdvReac Type Severity Reaction Status Date / Time Penicillins Allergy Severe Swelling Verified 07/24/15 07:08 of Lip/Tongue/Throat 12 point system: reviewed and no additional remarkable complaints except as stated - Constitutional Constitutional: Present: as per HPI - EENT Nose, mouth and throat: Present: epistaxis Medical,Surgical,& Family Hx - Medical History Cardio: History of: Cardiac Dysrhythmia (paroxysmal atrial fibrillation), Cerebrovascular Disease, CAD, Hypertension, [place], Cardiovascular Problems (TRIPLE BYPASS DR KM DOHERTY) Psychological: History of: Anxiety Disorders Neurology: History of: Cerebrovascular Accident (), Peripheral Neuropathy No history of: Seizures HEENT: History of: Eye Problem (GLASSES), Dental Problems (FULL SET) Endocrine: History of: Diabetes Mellitus (IDDM), Dyslipidemia Rheumatology: History of;: Gout, Rheumatoid Arthritis (RIGHT KNEE) Respiratory: History of: Obstructive Sleep Apnea (CPAP) Comment Only: Respiratory Problems (Pt has CPAP AT HOME BUT DOES NOT USE IT VERY MUCH) Genitourinary: History of: Kidney Stones Gastrointestinal: History of: GERD Musculoskeletal: History of: Back/Neck Problems Hematology: History of: Bleeding Problems (PT TAKES ELIQUIS) - Surgical History Cardiac Surgeries: Sugical HX of: Cardiac Catheterization, Cardiac Surgery Neurologic Surgeries: Patient denies: Neurologic Surgery HEENT Surgeries: Surgical HX of: Eye Surgery (BILATERAL CATARACT SURGERY) Abdominal Surgeries: Surgical HX of: Hernia Repair Reproductive Surgeries: Surgical HX of;: Cystoscopy Orthopedic Surgeries: Surgical HX of;: Implanted Devices (HEART STENT, KIDNEY STENT), Orthopedic Surgery (CARPAL TUNNEL), Spinal Surgery (LOWER BACK SURGERY, INJECTIONS WITH DR SHEIKH) - Family History Family History: Reports;: Family Cancer (FATHER), Family Diabetes (BROTHER), Family Hypertension (BROTHER), Family Stroke (FATHER TIA) Denies;: Family Heart Disease - Social History Smoking Status: Never smoker Frequency of Alcohol Use: None Type of Drug Use: None Exam - Constitutional Vitals: Period Temp Pulse Resp BP Sys/Nguyen Pulse Ox Last 24 Hr 97.1 F-98.5 F 67-84 17-20 129-159/62-89 94-96 - ENT ENT exam: Present: other (dryness of septum, minimal oozing right septum) - Expanded ENT Exam Mouth exam: Present: dry mucosa Throat exam: Absent: normal inspection (changes of UPPP, well-healed. no active bleeding from nasopharynx) Results - Labs CBC & BMP: 01/12/17 04:14 01/12/17 04:14 - Impressions epistaxis - secondary to anti-coagulation and nasal dryness (nasal oxygen) Quality Measures - VTE Contraindication to Pharmacological VTE Prophylaxis: High Risk of Bleeding - Stroke Symptom Onset Unknown: No Specialty Discharge - Follow Up or Referrals
[2017-01-12] MEDS: MIRTAZAPINE 30 MG TABLET PO SCH (22:26)
[2017-01-12] MEDS: CITALOPRAM 20 MG TABLET PO SCH (22:28)
[2017-01-12] MEDS: ROSUVASTATIN 20 MG TABLET PO SCH (22:29)
[2017-01-12] MEDS: ZINC GLUCONATE 50 MG TABLET PO SCH (22:30)
[2017-01-12] MEDS: INSULIN GLARGINE 100 UNIT/ML SUBCUT SCH (22:31)
[2017-01-13] MEDS: oxyCODONE/ACETAMINOPHEN 5-325 MG TABLET PO PRN ×2 (02:13→22:27)
[2017-01-13 06:10] LABS: Basophils % 0.7 % (0.0-0.8); Eosinophils # 0.2 10*3/uL (0.0-0.87); Eosinophils % 3.4 % (0.00-10.9); Hematocrit 34.5 VOL% (42.0-52.0); Immature Granulocytes % 0.2 %; Immature Granulocytes Absolute 0.01 #; Lymphocytes # 1.1 10*3/uL (1.4-4.0); Lymphocytes % 24.3 % (21.2-54.2); Mean Corpuscular HGB Conc 31.9 GM/DL (32-36); Mean Corpuscular Hemoglobin 25 PG (27-34); Mean Corpuscular Volume 79.1 FL (87-102); Mean Platelet Volume 10.5 FL (9.6-12.0); Monocytes # 0.4 10*3/uL (0.11-0.8); Monocytes % 10.1 % (1.7-12.7); Neutrophils # 2.7 10*3/uL (1.4-7.4); Neutrophils % 61.3 % (38.7-73.9); Red Blood Count 4.36 MC/CUMM (3.8-5.5); Red Cell Distribution Width 15.5 % (9.3-17.3); White Blood Count 4.4 T/CUMM (4-12)
[2017-01-13 06:12] LABS: Platelet Count 97 T/CUMM (130-400)
[2017-01-13 06:36] LABS: Giant Platelets Few; Hypochromasia 1+; Microcytosis Slight; Ovalocytes Slight; Platelet Estimate Decreased
[2017-01-13 06:37] LABS: Calcium 8.5 MG/DL (8.5-10.1); Magnesium 2.1 MG/DL (1.8-2.4); Osmolality,Calculated 282.3 MOS/KG (273-304); Potassium 3.3 MMOL/L (3.5-5.1)
[2017-01-13 06:47] LABS: Alanine Aminotransferase 15 U/L (16-61); Albumin 2.8 G/DL (3.4-5.0); Alkaline Phosphatase 72 U/L (45-117); Aspartate Amino Transferase 23 U/L (0-37); Bilirubin,Total < 0.39 MG/DL (0.2-1.0); Blood Urea Nitrogen 22 MG/DL (7-18); Calcium 8.5 MG/DL (8.5-10.1); Glucose 83 MG/DL (74-106); Osmolality,Calculated 278.5 MOS/KG (273-304); Potassium 3.3 MMOL/L (3.5-5.1); Sodium 139 MMOL/L (136-145); Total Protein 6.3 G/DL (6.4-8.3)
[2017-01-13] MEDS: INSULIN REGULAR 100 UNIT/ML SUBCUT SCH ×4 (08:19→22:30)
[2017-01-13] MEDS: RANOLAZINE 500 MG TABLET PO SCH ×2 (08:59→22:29)
[2017-01-13] MEDS: ASPIRIN EC 81 MG TABLET PO SCH (08:59)
[2017-01-13] MEDS: GABAPENTIN 600 MG TABLET PO SCH (08:59)
[2017-01-13] MEDS: POTASSIUM CHLORIDE 20 MEQ TABLET PO PRN ×2 (08:59→10:04)
[2017-01-13] MEDS: clonazePAM 0.5 MG TABLET PO SCH ×2 (09:00→22:26)
[2017-01-13] MEDS: METOPROLOL TARTRATE 25 MG TABLET PO SCH ×2 (09:00→22:28)
[2017-01-13] MEDS: DOCUSATE SODIUM 100 MG CAPSULE PO SCH (09:00)
[2017-01-13] MEDS: PANTOPRAZOLE 40 MG TABLET PO SCH (09:00)
[2017-01-13] MEDS: DILTIAZEM CD 120 MG CAPSULE PO SCH (09:00)
[2017-01-13] MEDS: OXYBUTYNIN 5 MG TABLET PO SCH ×2 (09:00→22:31)
[2017-01-13] MEDS: CLOPIDOGREL 75 MG TABLET PO SCH (09:01)
[2017-01-13] MEDS: ASCORBIC ACID 500 MG TABLET PO SCH ×2 (09:01→22:28)
[2017-01-13] MEDS: MUPIROCIN 2% OINT 22 GM TUBE TOP SCH ×2 (09:01→22:32)
[2017-01-13] MEDS: MAGNESIUM OXIDE 400 MG TABLET PO SCH ×2 (09:01→22:32)
[2017-01-13] MEDS: FUROSEMIDE 40 MG TABLET PO SCH (09:02)
[2017-01-13] MEDS: APIXABAN 5 MG TABLET PO SCH ×2 (09:05→22:30)
[2017-01-13] MEDS: INSULIN NPH/REGULAR 70/30 100 UNIT/ML SUBCUT SCH ×2 (09:06→18:47)
--- NOTE | 2017-01-13 13:27 | Cardiology Progress Note ---
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 Assessment and plan: SEE PLAN OF CARE LISTED BELOW Current Visit: Yes (4) Anemia Status: Chronic Assessment and plan: SEE PLAN OF CARE LISTED BELOW Current Visit: Yes (5) Thrombocytopenia Status: Chronic Assessment and plan: SEE PLAN OF CARE LISTED BELOW Current Visit: Yes (6) Essential hypertension Status: Chronic Assessment and plan: SEE PLAN OF CARE LISTED BELOW Current Visit: No (7) Coronary artery disease Status: Chronic Assessment and plan: SEE PLAN OF CARE LISTED BELOW Current Visit: No (8) Chronic renal insufficiency, stage III (moderate) Status: Chronic Assessment and plan: SEE PLAN OF CARE LISTED BELOW Current Visit: No (9) Atrial fibrillation Status: Chronic Assessment and plan: SEE PLAN OF CARE LISTED BELOW Current Visit: No (10) Non-ST elevation (NSTEMI) myocardial infarction Status: Resolved Assessment and plan: SEE PLAN OF CARE LISTED BELOW Current Visit: Yes (11) Asystole Status: Resolved Assessment and plan: SEE PLAN OF CARE LISTED BELOW Current Visit: Yes (12) Ischemic cardiomyopathy Status: Acute Assessment and plan: SEE PLAN OF CARE LISTED BELOW Current Visit: Yes (13) Epistaxis Status: Resolved Assessment and plan: SEE PLAN OF CARE LISTED BELOW Current Visit: Yes Cardiology - PN: Subj Interval history: EVALUATION ANALYST: DR. DOHERTY SUMMARY: Mr. Oliver, 76WM, with risk factors significant for: age, known CAD (S /P CABG 3 several years ago, report unavailable), hypertension, dyslipidemia, diabetes, CVA, sedentary lifestyle. History of atrial fibrillation for which he takes Eliquis for stroke prevention. Admitted January 07, 2017 with NSTEMI. He was taken urgently to the cardiac lab where Dr. Asher performed heart catheterization the following noted: CONCLUSIONS: 1: Severe diffuse makah multivessel coronary artery disease 2: 2 of 3 grafts patent with occlusion of the right coronary vein graft now supplied with good collaterals from the circumflex marginal (via the bypass) to the right coronary artery 3: Distal right coronary disease likely the index event with occlusion of the posterolateral branch 4: Episode of asystole now with a temporary pacemaker for close observation. 5: Ischemic cardiomyopathy ejection fraction 35% 6: Minx closure right femoral arteriotomy site DISCUSSION/RECOMMENDATIONS FROM DR. ASHER POST CATH POST The only finding which looks recent is occlusion of the posterior lateral branch of the right coronary artery. That is likely the cause of his recent event. It is not approachable with percutaneous coronary intervention. The patient had an episode of asystole which was thought to be related to stimulation of the bundle with the right coronary catheter. He recovered his rhythm spontaneously after a prolonged asystolic episode. A temporary pacemaker was placed in order to observe this overnight. Temporary pacemaker was removed postop day 1 post cath. He had no recurrent episodes of asystole but continued to have breakthrough episodes of atrial fibrillation with rapid ventricular response. At one point, patient required IV Cardizem for better control. 2016: Over the weekend, Eliquis was reinitiated given the patient' s continued paroxysms of atrial fibrillation. He experienced epistaxis and Dr. Howell, ENT, saw patient over the weekend. Dr. Howell applied silver nitrate and surgical packing to control the bleed. He has had no additional bleeding overnight. In general, patient is improving slowly. Labs are stable. In general, blood pressure seems to be well controlled. Hopefully, he will be transferred to swing bed facility tomorrow. I will further discuss with Dr. Vallecillo and await additional recommendations. IMPRESSION/PLAN: 1. NSTEMI - continue Aspirin, Plavix, beta-nam, and Crestor. Avoiding ARB /MARLENE due to mildly worsened renal insufficiency 2. KNOWN CAD STATUS POST CABG 3 - see heart catheterization report. Continue with appropriate medication regimen listed above. 3. HYPERTENSION -overall adequately controlled. Early this morning, prior to receiving meds, he did have a systolic blood pressure in the 170s however in general it seems to be adequately controlled. Will make no medication adjustments at this time will follow nuclear made in the hospital stay and adjust accordingly. 4. DYSLIPIDEMIA - LDL 74. Continue Crestor. 5. DIABETES - adjusting insulin dose for recent lower blood glucose levels. 6. ATRIAL FIBRILLATION - now rate controlled. Tolerating long-acting oral calcium channel nam. Eliquis has been reinitiated. 7. HIGH RISK MEDICATION (ELIQUIS) - continue to treat for prevention of CVA related to atrial fibrillation. 8. ANEMIA - stable on Eliquis and Plavix. 9. THROMBOCYTOPENIA - Long standing history as listed in labs in [facility]. Continue current plan of care. Labs stable 10. CKD, STAGE III - follow BMP daily. Creatinine stable, slowly improving. 11. ASYSTOLE - occurred after intervention thought to be related to stimulation of the bundle with the right coronary catheter. No additional arrhythmias overnight status post temporary pacemaker implantation. No additional arrhythmias after pacemaker removed 12. ICM - EF 35%. Will continue betablocker, hold ARB for now. Monitor creatinine. 13. EPISTAXIS - resolved after Dr. Howell performed nasal packing. Exam (Progress Note) - Constitutional Vitals: Period Temp Pulse Resp BP Sys/Nguyen Pulse Ox Last 24 Hr 96.7 F-98.8 F 73-88 18-20 115-187/64-92 93-97 Exam: General: [Appears well with no apparent distress.] [Pleasant and cooperative. ] [Appears comfortable.] HEENT: [PERRL, normocephalic, atraumatic. Mucous membranes moist. No jaundice noted. Conjunctiva moist and clear, sclerae anicteric] Neck: No obvious JVD/HJR, no thyromegaly or lymphadenopathy noted. No carotid bruit appreciated Cardiac: [Irregularly irregular rhythm, controlled rate ] [No obvious murmur rub or gallop.] Lungs: [Clear to auscultation without accessory muscle use to assist the respiratory pattern.] Using oxygen intermittently Abdomen: Soft, bowel sounds normoactive. Nontender and nondistended. No abdominal bruit or thrill noted. No masses noted. Musculoskeletal: No fluid collection. Decreased range of motion is noted. Extremities: Right groin soft, no hematoma. No clubbing, cyanosis noted. [ No edema noted.] Upper extremity pulses 2+. Lower extremity pulses 2+. Capillary refill less than 3 seconds. Skin: No unusual lesions or rashes. No skin breakdown appreciated. Neuro: Awake, alert and oriented 3. Moves all extremities well without hemiparesis or paralysis. No essential tremor is appreciated. Result/EKG - Labs CBC & BMP: 01/13/17 04:29 01/13/17 12:10 Lab Results: I have reviewed the past 24 hour labs Labs: Laboratory Results - last 24 hr 01/12/17 01/12/17 01/13/17 16:16 20:28 04:29 WBC 4.4 RBC 4.36 Hgb 11.0 L Hct 34.5 L MCV 79.1 L MCH 25 L MCHC 31.9 L RDW 15.5 Plt Count 97 L MPV 10.5 Neut % (Auto) 61.3 Lymph % (Auto) 24.3 [place] % (Auto) 10.1 Eos % (Auto) 3.4 Baso % (Auto) 0.7 Neut # (Auto) 2.7 Lymph # (Auto) 1.1 L [place] # (Auto) 0.4 Eos # (Auto) 0.2 Baso # (Auto) 0.0 Immature Gran % 0.2 Nucleated RBC % 0.0 Immature Gran # 0.01 Nucleated RBCs # 0.00 Platelet Estimate Decreased Giant Platelets Few Immature Plt Fraction 2.4 Hypochromasia 1+ Microcytosis Slight Ovalocytes Slight Morphology Comment Sodium Potassium Chloride Carbon Dioxide Anion Gap BUN Creatinine GFR Calculation BUN/Creatinine Ratio Glucose POC Glucose 317 H 316 H Calculated Osmolality Calcium Magnesium Total Bilirubin AST ALT Alkaline Phosphatase Total Protein Albumin Globulin Albumin/Globulin Ratio 01/13/17 01/13/17 01/13/17 04:29 04:29 08:10 WBC RBC Hgb Hct MCV MCH MCHC RDW Plt Count MPV Neut % (Auto) Lymph % (Auto) [place] % (Auto) Eos % (Auto) Baso % (Auto) Neut # (Auto) Lymph # (Auto) [place] # (Auto) Eos # (Auto) Baso # (Auto) Immature Gran % Nucleated RBC % Immature Gran # Nucleated RBCs # Platelet Estimate Giant Platelets Immature Plt Fraction Hypochromasia Microcytosis Ovalocytes Morphology Comment Sodium 141 139 Potassium 3.3 L 3.3 L Chloride 100 100 Carbon Dioxide 32 34 H Anion Gap 12.3 8.3 BUN 21 H 22 H Creatinine 1.80 H 1.90 H GFR Calculation 43 41 BUN/Creatinine Ratio 11.00 11.00 Glucose 82 83 POC Glucose 148 H Calculated Osmolality 282.3 278.5 Calcium 8.5 8.5 Magnesium 2.1 Total Bilirubin < 0.39 AST 23 ALT 15 L Alkaline Phosphatase 72 Total Protein 6.3 L Albumin 2.8 L Globulin 3.5 Albumin/Globulin Ratio 0.8 L 01/13/17 01/13/17 11:42 12:10 WBC RBC Hgb Hct MCV MCH MCHC RDW Plt Count MPV Neut % (Auto) Lymph % (Auto) [place] % (Auto) Eos % (Auto) Baso % (Auto) Neut # (Auto) Lymph # (Auto) [place] # (Auto) Eos # (Auto) Baso # (Auto) Immature Gran % Nucleated RBC % Immature Gran # Nucleated RBCs # Platelet Estimate Giant Platelets Immature Plt Fraction Hypochromasia Microcytosis Ovalocytes Morphology Comment Sodium Potassium 4.0 Chloride Carbon Dioxide Anion Gap BUN Creatinine GFR Calculation BUN/Creatinine Ratio Glucose POC Glucose 240 H Calculated Osmolality Calcium Magnesium Total Bilirubin AST ALT Alkaline Phosphatase Total Protein Albumin Globulin Albumin/Globulin Ratio - Diagnostic Findings Procedure: Chest x-ray: report reviewed by me - EKG EKG results: interpreted by me EKG shows: sinus rhythm Quality Measures - VTE Contraindication to Pharmacological VTE Prophylaxis: High Risk of Bleeding - Stroke Symptom Onset Unknown: No Specialty Discharge - Follow Up or Referrals
[2017-01-13] MEDS: CITALOPRAM 20 MG TABLET PO SCH (22:26)
[2017-01-13] MEDS: ZINC GLUCONATE 50 MG TABLET PO SCH (22:29)
[2017-01-13] MEDS: ROSUVASTATIN 20 MG TABLET PO SCH (22:29)
[2017-01-13] MEDS: MIRTAZAPINE 30 MG TABLET PO SCH (22:30)
[2017-01-13] MEDS: INSULIN GLARGINE 100 UNIT/ML SUBCUT SCH (22:31)
[2017-01-14 05:24] LABS: Basophils % 0.4 % (0.0-0.8); Eosinophils # 0.2 10*3/uL (0.0-0.87); Eosinophils % 3.6 % (0.00-10.9); Hematocrit 32.8 VOL% (42.0-52.0); Hemoglobin 10.3 GM/DL (14.0-18.0); Immature Granulocytes % 0.4 %; Immature Granulocytes Absolute 0.02 #; Lymphocytes # 1.8 10*3/uL (1.4-4.0); Lymphocytes % 37.5 % (21.2-54.2); Mean Corpuscular HGB Conc 31.4 GM/DL (32-36); Mean Corpuscular Hemoglobin 25 PG (27-34); Mean Corpuscular Volume 80.2 FL (87-102); Mean Platelet Volume 10.2 FL (9.6-12.0); Monocytes # 0.4 10*3/uL (0.11-0.8); Monocytes % 8.6 % (1.7-12.7); Neutrophils # 2.3 10*3/uL (1.4-7.4); Neutrophils % 49.5 % (38.7-73.9); Platelet Count 94 T/CUMM (130-400); Red Blood Count 4.09 MC/CUMM (3.8-5.5); Red Cell Distribution Width 15.5 % (9.3-17.3); White Blood Count 4.7 T/CUMM (4-12)
[2017-01-14 05:54] LABS: Band Neutrophils 1 % (0-10); Eosinophils 5 % (0-10); Hypochromasia 1+; Lymphocytes 40 % (20-55); Microcytosis 1+; Segmented Neutrophils 52 % (50-85); Total Cells Counted 100
[2017-01-14 05:55] LABS: Atypical Lymphocytes Few; Ovalocytes Slight; Platelet Estimate Decreased
[2017-01-14 05:59] LABS: Calcium 8.5 MG/DL (8.5-10.1); Magnesium 2.4 MG/DL (1.8-2.4); Osmolality,Calculated 278.5 MOS/KG (273-304)
[2017-01-14] MEDS: INSULIN REGULAR 100 UNIT/ML SUBCUT SCH ×2 (08:54→13:03)
[2017-01-14] MEDS: DILTIAZEM CD 120 MG CAPSULE PO SCH (09:23)
[2017-01-14] MEDS: CLOPIDOGREL 75 MG TABLET PO SCH (09:24)
[2017-01-14] MEDS: ASPIRIN EC 81 MG TABLET PO SCH (09:24)
[2017-01-14] MEDS: RANOLAZINE 500 MG TABLET PO SCH (09:24)
[2017-01-14] MEDS: GABAPENTIN 600 MG TABLET PO SCH (09:24)
[2017-01-14] MEDS: ASCORBIC ACID 500 MG TABLET PO SCH (09:26)
[2017-01-14] MEDS: clonazePAM 0.5 MG TABLET PO SCH (09:26)
[2017-01-14] MEDS: MAGNESIUM OXIDE 400 MG TABLET PO SCH (09:26)
[2017-01-14] MEDS: DOCUSATE SODIUM 100 MG CAPSULE PO SCH (09:27)
[2017-01-14] MEDS: PANTOPRAZOLE 40 MG TABLET PO SCH (09:27)
[2017-01-14] MEDS: OXYBUTYNIN 5 MG TABLET PO SCH (09:27)
[2017-01-14] MEDS: APIXABAN 5 MG TABLET PO SCH (09:27)
[2017-01-14] MEDS: FUROSEMIDE 40 MG TABLET PO SCH (09:27)
[2017-01-14] MEDS: METOPROLOL TARTRATE 25 MG TABLET PO SCH (09:27)
[2017-01-14] MEDS: MUPIROCIN 2% OINT 22 GM TUBE TOP SCH (09:34)
[2017-01-14] MEDS: INSULIN NPH/REGULAR 70/30 100 UNIT/ML SUBCUT SCH (09:38)
--- NOTE | 2017-01-14 12:00 | Cardiology Progress Note ---
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 Assessment and plan: SEE PLAN OF CARE LISTED BELOW Current Visit: Yes (4) Anemia Status: Chronic Assessment and plan: SEE PLAN OF CARE LISTED BELOW Current Visit: Yes (5) Thrombocytopenia Status: Chronic Assessment and plan: SEE PLAN OF CARE LISTED BELOW Current Visit: Yes (6) Essential hypertension Status: Chronic Assessment and plan: SEE PLAN OF CARE LISTED BELOW Current Visit: No (7) Coronary artery disease Status: Chronic Assessment and plan: SEE PLAN OF CARE LISTED BELOW Current Visit: No (8) Chronic renal insufficiency, stage III (moderate) Status: Chronic Assessment and plan: SEE PLAN OF CARE LISTED BELOW Current Visit: No (9) Atrial fibrillation Status: Chronic Assessment and plan: SEE PLAN OF CARE LISTED BELOW Current Visit: No (10) Non-ST elevation (NSTEMI) myocardial infarction Status: Resolved Assessment and plan: SEE PLAN OF CARE LISTED BELOW Current Visit: Yes (11) Asystole Status: Resolved Assessment and plan: SEE PLAN OF CARE LISTED BELOW Current Visit: Yes (12) Ischemic cardiomyopathy Status: Acute Assessment and plan: SEE PLAN OF CARE LISTED BELOW Current Visit: Yes (13) Epistaxis Status: Resolved Assessment and plan: SEE PLAN OF CARE LISTED BELOW Current Visit: Yes Cardiology - PN: Subj Interval history: SAMPLE PREP TECHNICIAN: DR. DOHERTY SUMMARY: Mr. Oliver, 76WM, with risk factors significant for: age, known CAD (S /P CABG 3 several years ago, report unavailable), hypertension, dyslipidemia, diabetes, CVA, sedentary lifestyle. History of atrial fibrillation for which he takes Eliquis for stroke prevention. Admitted January 07, 2017 with NSTEMI. He was taken urgently to the cardiac lab where Dr. Asher performed heart catheterization the following noted: CONCLUSIONS: 1: Severe diffuse [place] multivessel coronary artery disease 2: 2 of 3 grafts patent with occlusion of the right coronary vein graft now supplied with good collaterals from the circumflex marginal (via the bypass) to the right coronary artery 3: Distal right coronary disease likely the index event with occlusion of the posterolateral branch 4: Episode of asystole now with a temporary pacemaker for close observation. 5: Ischemic cardiomyopathy ejection fraction 35% 6: Minx closure right femoral arteriotomy site DISCUSSION/RECOMMENDATIONS FROM DR. ASHER POST CATH POST The only finding which looks recent is occlusion of the posterior lateral branch of the right coronary artery. That is likely the cause of his recent event. It is not approachable with percutaneous coronary intervention. The patient had an episode of asystole which was thought to be related to stimulation of the bundle with the right coronary catheter. He recovered his rhythm spontaneously after a prolonged asystolic episode. A temporary pacemaker was placed in order to observe this overnight. Temporary pacemaker was removed postop day 1 post cath. He had no recurrent episodes of asystole but continued to have breakthrough episodes of atrial fibrillation with rapid ventricular response. At one point, patient required IV Cardizem for better control. 2016: Over the weekend, Eliquis was reinitiated given the patient' s continued paroxysms of atrial fibrillation. He experienced epistaxis and Dr. Howell, ENT, saw patient over the weekend. Dr. Howell applied silver nitrate and surgical packing to control the bleed. He has had no additional bleeding overnight. In general, patient is improving slowly. Labs are stable. In general, blood pressure seems to be well controlled. Hopefully, he will be transferred to swing bed facility tomorrow. I will further discuss with Dr. Vallecillo and await additional recommendations. 2016: Patient continues to slowly improve. Denies chest pain, heaviness or tightness. Hopefully, patient will be a candidate for swing bed this afternoon. Physical therapy is working with patient today to make their recommendations regarding his physical status. Labs are stable. Creatinine continues to improve. He has had no additional epistaxis since his right nares was packed. No arrhythmia noted overnight. He remains in normal sinus rhythm at this time. Will further discuss with Dr. Vallecillo and await additional recommendations. IMPRESSION/PLAN: 1. NSTEMI - continue Aspirin, Plavix, beta-nam, and Crestor. Avoiding ARB /MARLENE due to mildly worsened renal insufficiency which is slowly improving 2. KNOWN CAD STATUS POST CABG 3 - see heart catheterization report. Continue with appropriate medication regimen listed above. 3. HYPERTENSION - overall adequately controlled. 4. DYSLIPIDEMIA - LDL 74. Continue Crestor. 5. DIABETES - adjusted insulin dose for better control. Overall this has improved. 6. ATRIAL FIBRILLATION - now rate controlled. Tolerating long-acting oral calcium channel nam. Eliquis has been reinitiated. 7. HIGH RISK MEDICATION (ELIQUIS) - continue to treat for prevention of CVA related to atrial fibrillation. 8. ANEMIA - stable on Eliquis and Plavix. 9. THROMBOCYTOPENIA - Long standing history as listed in labs in [facility]. Continue current plan of care. Labs stable 10. CKD, STAGE III - follow BMP daily. Creatinine stable, slowly improving. Today 1.7 11. ASYSTOLE - occurred after intervention thought to be related to stimulation of the bundle with the right coronary catheter. No additional arrhythmias overnight status post temporary pacemaker implantation. No additional arrhythmias after pacemaker removed 12. ICM - EF 35%. Will continue betablocker, hold ARB for now. Monitor creatinine. 13. EPISTAXIS - resolved after Dr. Howell performed nasal packing. Exam (Progress Note) - Constitutional Vitals: Period Temp Pulse Resp BP Sys/Nguyen Pulse Ox Last 24 Hr 96.7 F-97.6 F 61-80 16-20 98-144/52-90 94-98 Exam: General: [Appears well with no apparent distress.] [Pleasant and cooperative. ] [Appears comfortable.] HEENT: [PERRL, normocephalic, atraumatic. Mucous membranes moist. No jaundice noted. Conjunctiva moist and clear, sclerae anicteric] Neck: No obvious JVD/HJR, no thyromegaly or lymphadenopathy noted. No carotid bruit appreciated Cardiac: [Irregularly irregular rhythm, controlled rate ] [No obvious murmur rub or gallop.] Lungs: [Clear to auscultation without accessory muscle use to assist the respiratory pattern.] Using oxygen intermittently Abdomen: Soft, bowel sounds normoactive. Nontender and nondistended. No abdominal bruit or thrill noted. No masses noted. Musculoskeletal: No fluid collection. Decreased range of motion is noted. Extremities: Right groin soft, no hematoma. No clubbing, cyanosis noted. [ No edema noted.] Upper extremity pulses 2+. Lower extremity pulses 2+. Capillary refill less than 3 seconds. Skin: No unusual lesions or rashes. No skin breakdown appreciated. Neuro: Awake, alert and oriented 3. Moves all extremities well without hemiparesis or paralysis. No essential tremor is appreciated. Result/EKG - Labs CBC & BMP: 01/14/17 04:17 01/14/17 04:17 Lab Results: I have reviewed the past 24 hour labs Labs: Laboratory Results - last 24 hr 01/13/17 01/13/17 01/13/17 11:42 12:10 15:39 WBC RBC Hgb Hct MCV MCH MCHC RDW Plt Count MPV Neut % (Auto) Lymph % (Auto) [place] % (Auto) Eos % (Auto) Baso % (Auto) Neut # (Auto) Lymph # (Auto) [place] # (Auto) Eos # (Auto) Baso # (Auto) Total Counted Immature Gran % Nucleated RBC % Immature Gran # Segmented Neutrophils Band Neutrophils Lymphocytes Monocytes Eosinophils Nucleated RBCs # Atypical Lymphocytes Platelet Estimate Immature Plt Fraction Hypochromasia Microcytosis Ovalocytes Sodium Potassium 4.0 Chloride Carbon Dioxide Anion Gap BUN Creatinine GFR Calculation BUN/Creatinine Ratio Glucose POC Glucose 240 H 292 H Calculated Osmolality Calcium Magnesium 01/13/17 01/14/17 01/14/17 19:50 04:17 04:17 WBC 4.7 RBC 4.09 Hgb 10.3 L Hct 32.8 L MCV 80.2 L MCH 25 L MCHC 31.4 L RDW 15.5 Plt Count 94 L MPV 10.2 Neut % (Auto) 49.5 Lymph % (Auto) 37.5 [place] % (Auto) 8.6 Eos % (Auto) 3.6 Baso % (Auto) 0.4 Neut # (Auto) 2.3 Lymph # (Auto) 1.8 [place] # (Auto) 0.4 Eos # (Auto) 0.2 Baso # (Auto) 0.0 Total Counted 100 Immature Gran % 0.4 Nucleated RBC % 0.0 Immature Gran # 0.02 Segmented Neutrophils 52 Band Neutrophils 1 Lymphocytes 40 Monocytes 2 Eosinophils 5 Nucleated RBCs # 0.00 Atypical Lymphocytes Few Platelet Estimate Decreased Immature Plt Fraction 0.0 Hypochromasia 1+ Microcytosis 1+ Ovalocytes Slight Sodium 139 Potassium 4.0 Chloride 102 Carbon Dioxide 32 Anion Gap 9.0 BUN 21 H Creatinine 1.70 H GFR Calculation 46 BUN/Creatinine Ratio 12.00 Glucose 78 POC Glucose 338 H Calculated Osmolality 278.5 Calcium 8.5 Magnesium 2.4 01/14/17 01/14/17 08:01 09:34 WBC RBC Hgb Hct MCV MCH MCHC RDW Plt Count MPV Neut % (Auto) Lymph % (Auto) [place] % (Auto) Eos % (Auto) Baso % (Auto) Neut # (Auto) Lymph # (Auto) [place] # (Auto) Eos # (Auto) Baso # (Auto) Total Counted Immature Gran % Nucleated RBC % Immature Gran # Segmented Neutrophils Band Neutrophils Lymphocytes Monocytes Eosinophils Nucleated RBCs # Atypical Lymphocytes Platelet Estimate Immature Plt Fraction Hypochromasia Microcytosis Ovalocytes Sodium Potassium Chloride Carbon Dioxide Anion Gap BUN Creatinine GFR Calculation BUN/Creatinine Ratio Glucose POC Glucose 73 L 192 H Calculated Osmolality Calcium Magnesium - EKG EKG results: interpreted by me EKG shows: sinus rhythm Quality Measures - VTE Contraindication to Pharmacological VTE Prophylaxis: High Risk of Bleeding - Stroke Symptom Onset Unknown: No Specialty Discharge - Follow Up or Referrals
[2017-01-14 12:24] VITALS: BP 134/66
--- NOTE | 2017-01-14 14:21 | Discharge Summary ---
Hospital Course - Hospital Course Hospital Course: ELASTIC ATTACHER ZIGZAG: DR. HUMMEL Mr. Oliver, 76WM, with risk factors significant for: age, known CAD (S/P CABG 3 several years ago, report unavailable), hypertension, dyslipidemia, diabetes, CVA, sedentary lifestyle. History of atrial fibrillation for which he takes Eliquis for stroke prevention. Admitted January 07, 2017 with NSTEMI. He was taken urgently to the cardiac lab where Dr. Asher performed heart catheterization the following noted: CONCLUSIONS: 1: Severe diffuse [place] multivessel coronary artery disease 2: 2 of 3 grafts patent with occlusion of the right coronary vein graft now supplied with good collaterals from the circumflex marginal (via the bypass) to the right coronary artery 3: Distal right coronary disease likely the index event with occlusion of the posterolateral branch 4: Episode of asystole now with a temporary pacemaker for close observation. 5: Ischemic cardiomyopathy ejection fraction 35% 6: Minx closure right femoral arteriotomy site DISCUSSION/RECOMMENDATIONS FROM DR. ASHER POST CATH POST The only finding which looks recent is occlusion of the posterior lateral branch of the right coronary artery. That is likely the cause of his recent event. It is not approachable with percutaneous coronary intervention. The patient had an episode of asystole which was thought to be related to stimulation of the bundle with the right coronary catheter. He recovered his rhythm spontaneously after a prolonged asystolic episode. A temporary pacemaker was placed in order to observe this overnight. Temporary pacemaker was removed postop day 1 post cath. He had no recurrent episodes of asystole but continued to have breakthrough episodes of atrial fibrillation with rapid ventricular response. At one point, patient required IV Cardizem and he did have episodes of intermittent atrial fibrillation for several days. However, 48 hours prior to discharge he remained in normal sinus rhythm. He did experience epistaxis during hospital stay. Dr. Howell, ENT, saw patient, applied surgical packing to control the bleeding and there was no recurrent bleeding noted. Patient remained debilitated and weak and is considered a good candidate for swing bed and is being discharged today for further management at SNF. Patient will be given a 4-6 week follow-up with Dr. Hummel. At that visit the following will be obtained: BMP, magnesium, CBC and EKG. We will ask that the swing bed facility notified Dr. Howell patient's arrival in order to continue to follow as needed for removal of nasal packing. Discharge medications include the following: Aspirin 81 mg orally daily Eliquis 5 mg orally twice daily Ascorbic acid 1000 mg orally twice daily Celexa 30 mg orally each evening Clonazepam 1 mg orally twice daily Plavix 75 mg orally daily Cyanocobalamin intramuscular injection 1000 mcg every 30 days. Last received January 08, 2017 Diltiazem CD 120 mg orally daily Docusate sodium 100 mg orally daily Fluticasone 50 mcg 1 spray both nares twice daily Lasix 40 mg orally daily Gabapentin 600 mg orally daily Lantus 30 units subcutaneous injection each evening Insulin NPH regular subcutaneous injection 30 units each evening Insulin NPH regular 30 units subcutaneous injection every morning Magnesium oxide 400 mg orally twice daily Meclizine 25 mg orally 4 times daily as needed Metoprolol tartrate 25 mg orally twice daily Remeron 30 mg orally each evening Bactroban ointment apply topically twice daily Nitroglycerin 0.4 mg sublingual as needed chest pain Ondansetron tablet 4 mg orally twice daily as needed Ditropan 5 mg orally twice daily Oxycodone acetaminophen 5-325. Take 2 tablets p.o. 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 BMP, magnesium, CBC and EKG at that visit) Discharge Plan - Discharge Data Disposition: Disch/Xfer to Snf Condition at Discharge: Stable Discharge Diet: heart healthy Activity: as per physical therapy Hygiene: no restrictions Weight Bearing at Discharge: full weight bearing Driving: not until seen by doctor Contact your physician if you experience:: fever over 101, Difficulty voiding, Redness or swelling, Nausea/Vomiting, Shortness of breath, Bleeding, pain uncontrolled by pain medications - Discharge Medications New Aspirin EC Tab 81 mg PO DAILY tablet Bisacodyl Tab [Dulcolax Tab] 10 mg PO DAILY PRN tablet PRN Reason: Constipation clonazePAM TAB [KlonoPIN] 1 mg PO BID tablet Diltiazem Cd Cap [Cardizem CD] 120 mg PO DAILY capsule Furosemide Tab [Lasix Tab] 40 mg PO DAILY tablet Metoprolol Tartrate Tab [Lopressor Tab] 25 mg PO BID tablet Nitroglycerin Sl Tab [Nitrostat] 0.4 mg SL Q5M PRN tablet PRN Reason: Chest Pain Pantoprazole Tab [Protonix Tab] 40 mg PO DAILY tablet Ascorbic Acid Tab [Vitamin C Tab] 1,000 mg PO BID tablet Clopidogrel [Plavix] 75 mg PO DAILY tablet Mupirocin 2% Oint [Bactroban 2% Oint] 1 applic TOP BID applic Continue Docusate Sodium Cap [Colace Cap] 100 mg PO QAM tiZANidine [Zanaflex] 4 mg PO BID PRN PRN Reason: Muscle Spasm Citalopram [CeleXA] 30 mg PO BEDTIME Mirtazapine [Remeron] 30 mg PO BEDTIME Magnesium Oxide 400 mg PO BID Cyanocobalamin Inj [Vitamin B12 Inj] 1,000 mcg IM Q30D Rosuvastatin [Crestor] 20 mg PO BEDTIME Gabapentin Cap/Tab [Neurontin Cap/Tab] 600 mg PO DAILY oxyCODONE ER [OxyCONTIN] 10 mg PO Q12HR Zinc 50 mg PO BEDTIME Oxycodone HCl/Acetaminophen [Percocet 10-325 mg Tablet] 1 each PO TID PRN PRN Reason: Pain Aspirin [Ecotrin] 81 mg PO MOFR@0900 Nitroglycerin Sl Tab [Nitrostat] 0.4 mg SL Q5M PRN PRN Reason: Chest Pain Promethazine Tab [Phenergan Tab] 25 mg PO Q4H PRN PRN Reason: Nausea Cetirizine Tab [ZyrTEC Tab] 10 mg PO DAILY PRN PRN Reason: Allergy Symptoms Meclizine [Antivert] 25 mg PO QID PRN PRN Reason: Dizziness Pantoprazole Tab [Protonix Tab] 40 mg PO DAILY Insulin Regular [HumuLIN R] 1 unit SUBCUT Q6H PRN PRN Reason: Glucose Management Ranolazine [Ranexa] 500 mg PO BID Insulin NPH Hum/Reg Insulin Hm [NovoLIN 70/30] 50 unit SUBCUT QAM Insulin NPH Hum/Reg Insulin Hm [NovoLIN 70/30] 30 unit SUBCUT QPM Apixaban [Eliquis] 5 mg PO BID Ondansetron [Ondansetron Odt] 4 mg PO BID PRN PRN Reason: Nausea Insulin Glargine,Hum.rec.anlog [Lantus SoloStar] 30 units SUBCUT BEDTIME Oxybutynin [Ditropan] 5 mg PO BID clonazePAM [Clonazepam] 1 mg PO BID Sennosides [Senna] 8.6 mg PO DAILY PRN PRN Reason: Constipation Fluticasone 50 Mcg Nasal [place] [Flonase Nasal [place]] 2 spray BOTH NARES DAILY PRN PRN Reason: allergies Discontinued Metoprolol Tartrate Tab [Lopressor Tab] 50 mg PO BID Diltiazem Tab [Cardizem Tab] 60 mg PO BID W/MEALS - Follow Up or Referral - Forms/Instructions Instructions: Myocardial Infarction (GEN), Coronary Artery Disease (GEN), Left Heart Catheterization (DC), Heart Healthy Diet (GEN) Additional Discharge Instructions: Please contact Dr. Manuel Howell's office at [facility] to ask detailed instructions regarding when to remove nasal packing. Please provide this information at transfer to [facility] to the staff there Exam - Constitutional Vitals: Period Temp Pulse Resp BP Sys/Nguyen Pulse Ox Last 24 Hr 96.7 F-99.1 F 61-80 16-20 98-144/52-69 94-98 Exam: General: [Appears well with no apparent distress.] [Pleasant and cooperative. ] [Appears comfortable.] HEENT: [PERRL, normocephalic, atraumatic. Mucous membranes moist. No jaundice noted. Conjunctiva moist and clear, sclerae anicteric] Neck: No obvious JVD/HJR, no thyromegaly or lymphadenopathy noted. No carotid bruit appreciated Cardiac: [Irregularly irregular rhythm, controlled rate ] [No obvious murmur rub or gallop.] Lungs: [Clear to auscultation without accessory muscle use to assist the respiratory pattern.] Using oxygen intermittently Abdomen: Soft, bowel sounds normoactive. Nontender and nondistended. No abdominal bruit or thrill noted. No masses noted. Musculoskeletal: No fluid collection. Decreased range of motion is noted. Extremities: Right groin soft, no hematoma. No clubbing, cyanosis noted. [ No edema noted.] Upper extremity pulses 2+. Lower extremity pulses 2+. Capillary refill less than 3 seconds. Skin: No unusual lesions or rashes. No skin breakdown appreciated. Neuro: Awake, alert and oriented 3. Moves all extremities well without hemiparesis or paralysis. No essential tremor is appreciated. Discharge Results Labs on day of discharge: Labs from last 24 hours 01/14/17 01/14/17 01/14/17 11:22 09:34 08:01 WBC RBC Hgb Hct MCV MCH MCHC RDW Plt Count MPV Neut % (Auto) Lymph % (Auto) [place] % (Auto) Eos % (Auto) Baso % (Auto) Neut # (Auto) Lymph # (Auto) [place] # (Auto) Eos # (Auto) Baso # (Auto) Total Counted Immature Gran % Nucleated RBC % Immature Gran # Segmented Neutrophils Band Neutrophils Lymphocytes Monocytes Eosinophils Nucleated RBCs # Atypical Lymphocytes Platelet Estimate Immature Plt Fraction Hypochromasia Microcytosis Ovalocytes Sodium Potassium Chloride Carbon Dioxide Anion Gap BUN Creatinine GFR Calculation BUN/Creatinine Ratio Glucose POC Glucose 226 H 192 H 73 L Calculated Osmolality Calcium Magnesium 01/14/17 01/14/17 01/13/17 04:17 04:17 19:50 WBC 4.7 RBC 4.09 Hgb 10.3 L Hct 32.8 L MCV 80.2 L MCH 25 L MCHC 31.4 L RDW 15.5 Plt Count 94 L MPV 10.2 Neut % (Auto) 49.5 Lymph % (Auto) 37.5 [place] % (Auto) 8.6 Eos % (Auto) 3.6 Baso % (Auto) 0.4 Neut # (Auto) 2.3 Lymph # (Auto) 1.8 [place] # (Auto) 0.4 Eos # (Auto) 0.2 Baso # (Auto) 0.0 Total Counted 100 Immature Gran % 0.4 Nucleated RBC % 0.0 Immature Gran # 0.02 Segmented Neutrophils 52 Band Neutrophils 1 Lymphocytes 40 Monocytes 2 Eosinophils 5 Nucleated RBCs # 0.00 Atypical Lymphocytes Few Platelet Estimate Decreased Immature Plt Fraction 0.0 Hypochromasia 1+ Microcytosis 1+ Ovalocytes Slight Sodium 139 Potassium 4.0 Chloride 102 Carbon Dioxide 32 Anion Gap 9.0 BUN 21 H Creatinine 1.70 H GFR Calculation 46 BUN/Creatinine Ratio 12.00 Glucose 78 POC Glucose 338 H Calculated Osmolality 278.5 Calcium 8.5 Magnesium 2.4 01/13/17 15:39 WBC RBC Hgb Hct MCV MCH MCHC RDW Plt Count MPV Neut % (Auto) Lymph % (Auto) [place] % (Auto) Eos % (Auto) Baso % (Auto) Neut # (Auto) Lymph # (Auto) [place] # (Auto) Eos # (Auto) Baso # (Auto) Total Counted Immature Gran % Nucleated RBC % Immature Gran # Segmented Neutrophils Band Neutrophils Lymphocytes Monocytes Eosinophils Nucleated RBCs # Atypical Lymphocytes Platelet Estimate Immature Plt Fraction Hypochromasia Microcytosis Ovalocytes Sodium Potassium Chloride Carbon Dioxide Anion Gap BUN Creatinine GFR Calculation BUN/Creatinine Ratio Glucose POC Glucose 292 H Calculated Osmolality Calcium Magnesium - Imaging and Cardiology Cardiology Procedure: report reviewed by me Procedure: Chest x-ray: report reviewed by me DS: Provider Date of admission: 01/07/17 09:38 Primary care physician: . No PCP Attending physician on admission: Jason Asher MD Consults: 01/07/17 11:56 Consult to Cardiac Rehabilitation [CONS] Routine Reason for Cardiac Rehabilitation: Risk Factor Modification Other Consult Comment: Evaluate and recommend 01/09/17 12:22 Consult to Case Mgmt/Social Srvs [CONS] Routine Reason for Case Mgmt/Social Srvs: Discharge Planning Consult Comment: Will need LTAC or SNF at discharge 01/12/17 15:25 Consult to Physician [CONS] Routine Comment: Consulting Provider: Consult to Specialist Group: ENT Person Notified: Dr. Howell Date Notified: 01/12/17 Time Notified: 15:15 01/14/17 11:33 Consult to Occupational Therapy [CONS] Routine Reason for Occupational Therapy: Evaluate and Treat Consult Comment: please expedite eval needed for sbp Consult to Physical Therapy [CONS] Routine Reason for Physical Therapy: Evaluate and Treat Consult Comment: please expedite needed for sbp Discharging clinician: Daina Cuevas NP Expected date of discharge: 01/14/17
--- NOTE | 2017-01-16 13:41 | EKG Report ---
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
== END 2017-01-14 15:18 | DRG 280 ==
LOC: N.ED 08:40 → N.EDINP 09:38 → N.CC 11:51 → N.TELEN 01-11 11:16
PROVIDERS: ADMIT Internal Medicine Interventional Cardiology; ATTEND Internal Medicine Interventional Cardiology

== ENCOUNTER 2017-03-24 15:42 | Observation (INO) ==
[2017-03-24] MEDS ORDERED: MORPHINE 2 MG/1 ML SYRINGE IV STA (16:15)
[2017-03-24] MEDS ORDERED: ONDANSETRON 4 MG/2 ML VIAL IV STA (16:15)
[2017-03-24] MEDS ORDERED: ASPIRIN 325 MG TABLET PO STA (16:15)
[2017-03-24 16:32] LABS: Basophils % 0.4 % (0.0-0.8); Eosinophils # 0.2 10*3/uL (0.0-0.87); Eosinophils % 3.6 % (0.00-10.9); Hematocrit 29.5 VOL% (42.0-52.0); Hemoglobin 9.2 GM/DL (14.0-18.0); Immature Granulocytes % 0.2 %; Immature Granulocytes Absolute 0.01 #; Lymphocytes # 1.8 10*3/uL (1.4-4.0); Lymphocytes % 31.4 % (21.2-54.2); Mean Corpuscular HGB Conc 31.2 GM/DL (32-36); Mean Corpuscular Hemoglobin 24 PG (27-34); Mean Corpuscular Volume 77.4 FL (87-102); Monocytes # 0.5 10*3/uL (0.11-0.8); Monocytes % 8.7 % (1.7-12.7); Neutrophils # 3.1 10*3/uL (1.4-7.4); Neutrophils % 55.7 % (38.7-73.9); Platelet Count 106 T/CUMM (130-400); Red Blood Count 3.81 MC/CUMM (3.8-5.5); Red Cell Distribution Width 15.9 % (9.3-17.3); White Blood Count 5.6 T/CUMM (4-12)
[2017-03-24 16:56] LABS: Calcium 8.3 MG/DL (8.5-10.1); Osmolality,Calculated 283.4 MOS/KG (273-304); Potassium 4.5 MMOL/L (3.5-5.1); Troponin I Only 0.159 NG/ML (0.00-0.045)
[2017-03-24] MEDS ORDERED: ONDANSETRON 4 MG/2 ML VIAL ONE (17:03)
[2017-03-24] MEDS ORDERED: MORPHINE 2 MG/1 ML SYRINGE ONE ×2 (17:03→17:04)
[2017-03-24] MEDS ORDERED: ASPIRIN 325 MG TABLET ONE (17:04)
[2017-03-24] MEDS ORDERED: ZALEPLON 5 MG CAPSULE PO PRN (17:22)
[2017-03-24] MEDS ORDERED: MORPHINE 2 MG/1 ML SYRINGE IV PRN (17:22)
[2017-03-24] MEDS ORDERED: MAGNESIUM SULF RIDER 4 GM in PREMIX 1 EACH IV PRN (17:22)
[2017-03-24] MEDS ORDERED: MAGNESIUM SULF RIDER 2 GM in PREMIX 1 EACH IV PRN (17:22)
[2017-03-24] MEDS: ENOXAPARIN 100 MG/ML SYRINGE SUBCUT SCH (19:55)
[2017-03-24] MEDS ORDERED: ENOXAPARIN 100 MG/ML SYRINGE SUBCUT ONE (20:04)
[2017-03-24] MEDS ORDERED: ENOXAPARIN 100 MG/ML SYRINGE SUBCUT STA (21:16)
[2017-03-24] MEDS ORDERED: tiZANidine 4 MG TABLET PO PRN (21:46)
[2017-03-24] MEDS ORDERED: PROMETHAZINE 25 MG TABLET PO PRN (21:51)
[2017-03-24] MEDS ORDERED: oxyCODONE/ACETAMINOPHEN 5-325 MG TABLET PO PRN (21:52)
[2017-03-24] MEDS ORDERED: SENNA 8.6 MG TABLET PO PRN (21:54)
[2017-03-24] MEDS ORDERED: NITROGLYCERIN SL 0.4 MG TABLET SL PRN (21:54)
[2017-03-24] MEDS ORDERED: MECLIZINE 25 MG TABLET PO PRN (21:56)
[2017-03-24] MEDS ORDERED: CETIRIZINE 10 MG TABLET PO PRN (22:04)
[2017-03-24] MEDS ORDERED: BISACODYL 5 MG TABLET PO PRN (22:05)
[2017-03-24] MEDS ORDERED: CYANOCOBALAMIN 1000 MCG/1 ML VIAL IM SCH (22:30)
[2017-03-24] MEDS: METOPROLOL TARTRATE 25 MG TABLET PO SCH (23:01)
[2017-03-24] MEDS: ASCORBIC ACID 500 MG TABLET PO SCH (23:01)
[2017-03-24] MEDS: MAGNESIUM OXIDE 400 MG TABLET PO SCH (23:01)
[2017-03-24] MEDS: OXYBUTYNIN 5 MG TABLET PO SCH (23:01)
[2017-03-24] MEDS: ROSUVASTATIN 20 MG TABLET PO SCH (23:01)
[2017-03-24] MEDS: oxyCODONE ER 10 MG TABLET PO SCH (23:02)
[2017-03-24] MEDS: APIXABAN 5 MG TABLET PO SCH (23:02)
[2017-03-24] MEDS: clonazePAM 0.5 MG TABLET PO SCH (23:02)
[2017-03-24] MEDS: MIRTAZAPINE 30 MG TABLET PO SCH (23:03)
[2017-03-24] MEDS: RANOLAZINE 500 MG TABLET PO SCH (23:03)
[2017-03-24] MEDS: CITALOPRAM 20 MG TABLET PO SCH (23:03)
[2017-03-24] MEDS: INSULIN GLARGINE 100 UNIT/ML SUBCUT SCH (23:06)
[2017-03-25] MEDS: METOPROLOL TARTRATE 25 MG TABLET PO SCH ×3 (04:09→20:44)
[2017-03-25 08:00] LABS: Basophils % 0.6 % (0.0-0.8); Eosinophils # 0.1 10*3/uL (0.0-0.87); Hemoglobin 8.5 GM/DL (14.0-18.0); Immature Granulocytes % 0.3 %; Immature Granulocytes Absolute 0.01 #; Lymphocytes % 29.5 % (21.2-54.2); Mean Corpuscular HGB Conc 30.4 GM/DL (32-36); Mean Corpuscular Hemoglobin 24 PG (27-34); Mean Corpuscular Volume 78.2 FL (87-102); Monocytes # 0.3 10*3/uL (0.11-0.8); Monocytes % 8.7 % (1.7-12.7); Neutrophils # 1.8 10*3/uL (1.4-7.4); Neutrophils % 56.9 % (38.7-73.9); Red Blood Count 3.58 MC/CUMM (3.8-5.5); Red Cell Distribution Width 15.9 % (9.3-17.3); White Blood Count 3.2 T/CUMM (4-12)
[2017-03-25 08:03] LABS: Platelet Count 85 T/CUMM (130-400)
[2017-03-25 08:36] LABS: Hypochromasia 2+; Microcytosis 1+; Ovalocytes Few
[2017-03-25 08:37] LABS: Platelet Estimate Decreased
[2017-03-25] MEDS: oxyCODONE ER 10 MG TABLET PO SCH ×2 (08:38→20:44)
[2017-03-25 08:41] LABS: Albumin 3.1 G/DL (3.4-5.0); Blood Urea Nitrogen 24 MG/DL (7-18); Calcium 8.3 MG/DL (8.5-10.1); Glucose 410 MG/DL (74-106); Magnesium 2.3 MG/DL (1.8-2.4); Osmolality,Calculated 288.2 MOS/KG (273-304); Phosphorous 3.1 MG/DL (2.5-4.9); Potassium 4.5 MMOL/L (3.5-5.1); Sodium 134 MMOL/L (136-145)
[2017-03-25 08:43] LABS: Troponin I Only 0.087 NG/ML (0.00-0.045)
[2017-03-25] MEDS ORDERED: GLUCAGON 1 MG VIAL IM PRN (08:48)
[2017-03-25] MEDS ORDERED: DEXTROSE 50% 25 GM/50 ML VIAL IV PRN (08:48)
[2017-03-25] MEDS: FLUTICASONE 50 MCG NASAL SPRAY 16 GM BOTTLE BOTH NARES SCH (09:10)
[2017-03-25] MEDS: INSULIN ASPART PROTAMINE/ASPART 70/30 100 UNIT/ML SUBCUT SCH ×2 (12:14→17:28)
[2017-03-25] MEDS: DILTIAZEM CD 120 MG CAPSULE PO SCH (12:15)
[2017-03-25] MEDS: RANOLAZINE 500 MG TABLET PO SCH ×2 (12:15→20:43)
[2017-03-25] MEDS: ASCORBIC ACID 500 MG TABLET PO SCH ×2 (12:15→20:43)
[2017-03-25] MEDS: GABAPENTIN 600 MG TABLET PO SCH (12:15)
[2017-03-25] MEDS: ZINC GLUCONATE 50 MG TABLET PO SCH (12:15)
[2017-03-25] MEDS: MAGNESIUM OXIDE 400 MG TABLET PO SCH ×2 (12:15→20:43)
[2017-03-25] MEDS: FUROSEMIDE 40 MG TABLET PO SCH (12:15)
[2017-03-25] MEDS: ASPIRIN CHEW 81 MG TABLET PO SCH (12:16)
[2017-03-25] MEDS: DOCUSATE SODIUM 100 MG CAPSULE PO SCH (12:16)
[2017-03-25] MEDS: CHOLECALCIFEROL 1,000 UNIT TABLET PO SCH (12:16)
[2017-03-25] MEDS: PANTOPRAZOLE 40 MG TABLET PO SCH (12:16)
[2017-03-25] MEDS: OXYBUTYNIN 5 MG TABLET PO SCH ×2 (12:16→20:44)
[2017-03-25] MEDS: CLOPIDOGREL 75 MG TABLET PO SCH (12:16)
[2017-03-25] MEDS: APIXABAN 5 MG TABLET PO SCH ×2 (12:16→20:44)
[2017-03-25] MEDS: clonazePAM 0.5 MG TABLET PO SCH ×2 (12:16→20:43)
[2017-03-25] MEDS: ISOSORBIDE MONONITRATE 30 MG TABLET PO SCH (12:23)
[2017-03-25] MEDS: INSULIN REGULAR 100 UNIT/ML SUBCUT SCH ×2 (17:27→20:44)
[2017-03-25] MEDS: ENOXAPARIN 100 MG/ML SYRINGE SUBCUT SCH (17:31)
[2017-03-25] MEDS ORDERED: ACETAMINOPHEN 325 MG TABLET PO PRN (17:35)
[2017-03-25] MEDS ORDERED: diphenhydrAMINE CAP 25 MG CAPSULE PO PRN (17:36)
[2017-03-25] MEDS ORDERED: ONDANSETRON 4 MG/2 ML VIAL IV PRN (17:37)
[2017-03-25] MEDS ORDERED: MAGNESIUM HYDROXIDE SUSP 30 ML UDCUP PO PRN (17:37)
[2017-03-25] MEDS: CITALOPRAM 20 MG TABLET PO SCH (20:43)
[2017-03-25] MEDS: MIRTAZAPINE 30 MG TABLET PO SCH (20:43)
[2017-03-25] MEDS: ROSUVASTATIN 20 MG TABLET PO SCH (20:44)
[2017-03-25] MEDS: INSULIN GLARGINE 100 UNIT/ML SUBCUT SCH (20:44)
[2017-03-26 04:24] LABS: Basophils % 0.6 % (0.0-0.8); Eosinophils # 0.2 10*3/uL (0.0-0.87); Eosinophils % 5.3 % (0.00-10.9); Hematocrit 27.9 VOL% (42.0-52.0); Hemoglobin 8.5 GM/DL (14.0-18.0); Immature Granulocytes % 0.3 %; Immature Granulocytes Absolute 0.01 #; Lymphocytes # 1.1 10*3/uL (1.4-4.0); Lymphocytes % 34.7 % (21.2-54.2); Mean Corpuscular HGB Conc 30.5 GM/DL (32-36); Mean Corpuscular Hemoglobin 24 PG (27-34); Mean Corpuscular Volume 78.6 FL (87-102); Mean Platelet Volume 10.9 FL (9.6-12.0); Monocytes # 0.3 10*3/uL (0.11-0.8); Monocytes % 8.8 % (1.7-12.7); Neutrophils # 1.6 10*3/uL (1.4-7.4); Neutrophils % 50.3 % (38.7-73.9); Platelet Count 88 T/CUMM (130-400); Red Blood Count 3.55 MC/CUMM (3.8-5.5); White Blood Count 3.2 T/CUMM (4-12)
[2017-03-26 04:38] LABS: Calcium 8.4 MG/DL (8.5-10.1); Magnesium 2.4 MG/DL (1.8-2.4); Osmolality,Calculated 284.8 MOS/KG (273-304); Potassium 3.8 MMOL/L (3.5-5.1)
[2017-03-26 05:03] LABS: Eosinophils 8 % (0-10); Giant Platelets Few; Hypochromasia 1+; Lymphocytes 30 % (20-55); Ovalocytes Slight; Platelet Estimate Decreased; Segmented Neutrophils 52 % (50-85); Total Cells Counted 100
[2017-03-26 05:04] LABS: Microcytosis Slight
[2017-03-26] MEDS: CHOLECALCIFEROL 1,000 UNIT TABLET PO SCH (08:42)
[2017-03-26] MEDS: MAGNESIUM OXIDE 400 MG TABLET PO SCH (08:43)
[2017-03-26] MEDS: RANOLAZINE 500 MG TABLET PO SCH (08:43)
[2017-03-26] MEDS: CLOPIDOGREL 75 MG TABLET PO SCH (08:44)
[2017-03-26] MEDS: ISOSORBIDE MONONITRATE 30 MG TABLET PO SCH (08:44)
[2017-03-26] MEDS: FUROSEMIDE 40 MG TABLET PO SCH (08:45)
[2017-03-26] MEDS: GABAPENTIN 600 MG TABLET PO SCH (08:45)
[2017-03-26] MEDS: DOCUSATE SODIUM 100 MG CAPSULE PO SCH (08:46)
[2017-03-26] MEDS: METOPROLOL TARTRATE 25 MG TABLET PO SCH (08:46)
[2017-03-26] MEDS: ASCORBIC ACID 500 MG TABLET PO SCH (08:46)
[2017-03-26] MEDS: OXYBUTYNIN 5 MG TABLET PO SCH (08:46)
[2017-03-26] MEDS: ZINC GLUCONATE 50 MG TABLET PO SCH (08:47)
[2017-03-26] MEDS: DILTIAZEM CD 120 MG CAPSULE PO SCH (08:47)
[2017-03-26] MEDS: APIXABAN 5 MG TABLET PO SCH (08:48)
[2017-03-26] MEDS: oxyCODONE ER 10 MG TABLET PO SCH (08:48)
[2017-03-26] MEDS: PANTOPRAZOLE 40 MG TABLET PO SCH (08:48)
[2017-03-26] MEDS: ASPIRIN CHEW 81 MG TABLET PO SCH (08:48)
[2017-03-26] MEDS: clonazePAM 0.5 MG TABLET PO SCH (08:48)
[2017-03-26] MEDS: INSULIN ASPART PROTAMINE/ASPART 70/30 100 UNIT/ML SUBCUT SCH ×2 (08:49→17:05)
[2017-03-26] MEDS: INSULIN REGULAR 100 UNIT/ML SUBCUT SCH ×3 (13:11→17:05)
[2017-03-26] MEDS: FLUTICASONE 50 MCG NASAL SPRAY 16 GM BOTTLE BOTH NARES SCH (13:14)
[2017-03-26 16:52] VITALS: BP 114/60
== END 2017-03-26 18:49 | disposition home or self-care (01) ==
LOC: N.EDINP 15:42 → N.ED 15:42 → N.TELEN 19:43
PROVIDERS: ADMIT Internal Medicine Cardiovascular Disease; ATTEND Internal Medicine Cardiovascular Disease

== ENCOUNTER 2017-05-04 16:03 | Inpatient (IN) ==
[2017-05-04] MEDS ORDERED: NALOXONE 0.4 MG/ML VIAL IV STA (17:23)
[2017-05-04] MEDS ORDERED: SODIUM CHLORIDE 0.9% 1,000 ML IV STA (17:23)
[2017-05-04] MEDS ORDERED: NALOXONE 0.4 MG/ML VIAL ONE (17:31)
[2017-05-04 17:43] LABS: Basophils % 0.2 % (0.0-0.8); Eosinophils # 0.3 10*3/uL (0.0-0.87); Eosinophils % 6.3 % (0.00-10.9); Hematocrit 24.2 VOL% (42.0-52.0); Hemoglobin 7.2 GM/DL (14.0-18.0); Immature Granulocytes % 0.5 %; Immature Granulocytes Absolute 0.02 #; Lymphocytes # 1.3 10*3/uL (1.4-4.0); Mean Corpuscular HGB Conc 29.8 GM/DL (32-36); Mean Corpuscular Hemoglobin 23 PG (27-34); Mean Corpuscular Volume 77.6 FL (87-102); Mean Platelet Volume 11.2 FL (9.6-12.0); Monocytes # 0.6 10*3/uL (0.11-0.8); Monocytes % 14.4 % (1.7-12.7); Neutrophils % 47.6 % (38.7-73.9); Red Blood Count 3.12 MC/CUMM (3.8-5.5); Red Cell Distribution Width 17.3 % (9.3-17.3); White Blood Count 4.1 T/CUMM (4-12)
[2017-05-04 17:48] LABS: Platelet Count 86 T/CUMM (130-400)
[2017-05-04 17:49] LABS: INR 1.2; PT Patient Result 12.4 SECS
[2017-05-04 17:52] LABS: Ammonia 62 UMOL/L (11-32)
[2017-05-04] MEDS ORDERED: FUROSEMIDE 40 MG/4 ML VIAL IV STA (17:54)
[2017-05-04 17:56] LABS: Alanine Aminotransferase 14 U/L (16-61); Albumin 2.8 G/DL (3.4-5.0); Alkaline Phosphatase 73 U/L (45-117); Aspartate Amino Transferase 14 U/L (0-37); Bilirubin,Total < 0.39 MG/DL (0.2-1.0); Blood Urea Nitrogen 115 MG/DL (7-18); Calcium 8.2 MG/DL (8.5-10.1); Glucose 127 MG/DL (74-106); Lactic Acid 1.6 MMOL/L (0.4-2.0); Magnesium 3.3 MG/DL (1.8-2.4); Osmolality,Calculated 311.8 MOS/KG (273-304); Potassium 4.6 MMOL/L (3.5-5.1); Sodium 137 MMOL/L (136-145); Total Protein 6.7 G/DL (6.4-8.3); Troponin I Only 0.023 NG/ML (0.00-0.045)
[2017-05-04 17:57] LABS: ABG Oxygen Saturation 54.3 % (95-100); ABG PCO2 32.1 MM HG (35-48); ABG PH 7.343 (7.35-7.45)
[2017-05-04 17:58] LABS: ABG PO2 36.1 MM HG (80-95)
[2017-05-04] MEDS ORDERED: FUROSEMIDE 40 MG/4 ML VIAL ONE (18:14)
[2017-05-04 18:38] LABS: ABG Base Excess 0.5 MMOL/L (-2.5-2.5); ABG HCO3 24.8 MMOL/L (20-26); ABG Oxygen Saturation 95.5 % (95-100); ABG PO2 79.4 MM HG (80-95); ABG TCO2 24.7 MMOL/L (23-27)
[2017-05-04 19:12] LABS: Sedimentation Rate-Westergren 95 MM/HR (0-20)
[2017-05-04] MEDS ORDERED: SODIUM CHLORIDE 0.9% 1,000 ML IV SCH (19:30)
[2017-05-04] MEDS ORDERED: DEXTROSE 50% 25 GM/50 ML VIAL IV PRN (20:12)
[2017-05-04] MEDS ORDERED: GLUCAGON 1 MG VIAL IM PRN (20:12)
[2017-05-04] MEDS: SODIUM CHLORIDE 0.9% 1,000 ML IV SCH (20:25)
[2017-05-04 20:41] LABS: Risk Ratio 2.72; VLDL CHOLESTEROL 20.2 MG/DL
[2017-05-04] MEDS: BISACODYL 10 MG SUPP RECTAL SCH (21:18)
[2017-05-04] MEDS: INSULIN GLARGINE 100 UNIT/ML SUBCUT SCH (21:18)
[2017-05-05] MEDS: INSULIN REGULAR 100 UNIT/ML SUBCUT SCH ×5 (00:09→20:54)
[2017-05-05 02:00] LABS: Apearance,Urine Slightly Hazy (Clear); Bacteria,Urine Occasional /HPF (Few); Bilirubin,Urine Negative (Negative); Blood, Urine Negative (Negative); Glucose,Urine (UA) Negative (Negative); Hyaline Casts,Urine 18 /LPF (0-3); Ketones,Urine Negative (Negative); Mucus,Urine Occasional /LPF (Occasional); Nitrite,Urine Negative (Negative); Protein,Urine Negative; RBC,Urine 1 /HPF (0-4); Squamous Epithelial Cell,Urine Occasional /HPF (0-10); Urine Color Yellow (Yellow); Urine Specific Gravity 1.013 (1.001-1.035); Urine Urobilinogen < 2.0 EU/DL (0.2-1.0); WBC,Urine 3 /HPF (0-6)
[2017-05-05 06:14] LABS: Eosinophils # 0.3 10*3/uL (0.0-0.87); Eosinophils % 9.8 % (0.00-10.9); Hematocrit 22.1 VOL% (42.0-52.0); Hemoglobin 6.7 GM/DL (14.0-18.0); Immature Granulocytes % 0.4 %; Immature Granulocytes Absolute 0.01 #; Lymphocytes % 35.1 % (21.2-54.2); Mean Corpuscular HGB Conc 30.3 GM/DL (32-36); Mean Corpuscular Hemoglobin 23 PG (27-34); Mean Corpuscular Volume 76.7 FL (87-102); Mean Platelet Volume 10.2 FL (9.6-12.0); Monocytes # 0.3 10*3/uL (0.11-0.8); Neutrophils # 1.2 10*3/uL (1.4-7.4); Neutrophils % 42.7 % (38.7-73.9); Platelet Count 86 T/CUMM (130-400); Red Blood Count 2.88 MC/CUMM (3.8-5.5); Red Cell Distribution Width 17.2 % (9.3-17.3); White Blood Count 2.8 T/CUMM (4-12)
[2017-05-05] MEDS ORDERED: SODIUM CHLORIDE 0.9% 1,000 ML IV PRN ×2 (06:33→07:51)
[2017-05-05] MEDS ORDERED: FUROSEMIDE 20 MG/2 ML VIAL IV PRN ×2 (06:33)
[2017-05-05 07:30] LABS: Calcium 7.9 MG/DL (8.5-10.1); Osmolality,Calculated 311.1 MOS/KG (273-304); Potassium 4.2 MMOL/L (3.5-5.1)
[2017-05-05 07:47] LABS: Eosinophils 14 % (0-10); Lymphocytes 33 % (20-55); Platelet Estimate Decreased; Segmented Neutrophils 41 % (50-85); Total Cells Counted 100
[2017-05-05 07:48] LABS: Hypochromasia 1+; Microcytosis Slight
[2017-05-05] MEDS: PANTOPRAZOLE 40 MG VIAL IV SCH (08:57)
[2017-05-05] MEDS: BISACODYL 10 MG SUPP RECTAL SCH ×2 (11:00→20:54)
[2017-05-05 14:11] LABS: Hematocrit 24.8 VOL% (42.0-52.0); Hemoglobin 7.6 GM/DL (14.0-18.0)
[2017-05-05] MEDS: SODIUM CHLORIDE 0.9% 1,000 ML IV SCH (18:24)
[2017-05-05] MEDS: INSULIN GLARGINE 100 UNIT/ML SUBCUT SCH (20:54)
[2017-05-06 05:29] LABS: Basophils % 0.6 % (0.0-0.8); Eosinophils # 0.4 10*3/uL (0.0-0.87); Hematocrit 29.6 VOL% (42.0-52.0); Hemoglobin 9.5 GM/DL (14.0-18.0); Immature Granulocytes % 0.6 %; Immature Granulocytes Absolute 0.02 #; Lymphocytes # 0.8 10*3/uL (1.4-4.0); Lymphocytes % 22.9 % (21.2-54.2); Mean Corpuscular HGB Conc 32.1 GM/DL (32-36); Mean Corpuscular Hemoglobin 25 PG (27-34); Mean Corpuscular Volume 77.3 FL (87-102); Mean Platelet Volume 10.1 FL (9.6-12.0); Monocytes # 0.4 10*3/uL (0.11-0.8); Neutrophils # 1.9 10*3/uL (1.4-7.4); Neutrophils % 53.9 % (38.7-73.9); Platelet Count 104 T/CUMM (130-400); Red Blood Count 3.83 MC/CUMM (3.8-5.5); Red Cell Distribution Width 17.3 % (9.3-17.3); White Blood Count 3.5 T/CUMM (4-12)
[2017-05-06 06:08] LABS: Eosinophils 12 % (0-10); Giant Platelets Few; Hypochromasia 1+; Lymphocytes 21 % (20-55); Ovalocytes Slight; Platelet Estimate Decreased; Segmented Neutrophils 59 % (50-85); Total Cells Counted 100
[2017-05-06 06:09] LABS: Microcytosis Slight
[2017-05-06 06:11] LABS: % Iron Saturation 8.6 % (18-50)
[2017-05-06 06:17] LABS: Albumin 2.9 G/DL (3.4-5.0); Bilirubin,Total 0.8 MG/DL (0.2-1.0); Calcium 8.2 MG/DL (8.5-10.1); Total Protein 6.1 G/DL (6.4-8.3)
[2017-05-06] MEDS: ONDANSETRON 4 MG/2 ML VIAL IV PRN ×2 (06:32→11:46)
[2017-05-06] MEDS ORDERED: FLUTICASONE 50 MCG NASAL SPRAY 16 GM BOTTLE BOTH NARES PRN (07:52)
[2017-05-06] MEDS ORDERED: PROMETHAZINE 25 MG TABLET PO PRN (07:52)
[2017-05-06] MEDS ORDERED: tiZANidine 4 MG TABLET PO PRN (07:52)
[2017-05-06] MEDS ORDERED: BISACODYL 5 MG TABLET PO PRN (07:52)
[2017-05-06] MEDS ORDERED: CETIRIZINE 10 MG TABLET PO PRN (07:52)
[2017-05-06] MEDS ORDERED: PROMETHAZINE 25 MG/1 ML VIAL IM ONE (08:15)
[2017-05-06] MEDS: INSULIN REGULAR 100 UNIT/ML SUBCUT SCH ×4 (08:31→20:54)
[2017-05-06] MEDS ORDERED: METOPROLOL TARTRATE 25 MG TABLET PO SCH (09:00)
[2017-05-06] MEDS: DILTIAZEM CD 120 MG CAPSULE PO SCH (09:37)
[2017-05-06] MEDS: clonazePAM 0.5 MG TABLET PO PRN ×2 (09:37→16:58)
[2017-05-06] MEDS: BISACODYL 10 MG SUPP RECTAL SCH ×2 (09:57→20:53)
[2017-05-06] MEDS: PANTOPRAZOLE 40 MG VIAL IV SCH (10:05)
[2017-05-06] MEDS ORDERED: NITROGLYCERIN SL 0.4 MG TABLET SL PRN (11:36)
[2017-05-06] MEDS ORDERED: ONDANSETRON 4 MG/2 ML VIAL ONE (11:38)
[2017-05-06] MEDS ORDERED: NITROGLYCERIN SL 0.4 MG TABLET SL ONE (11:38)
[2017-05-06] MEDS ORDERED: ONDANSETRON 4 MG/2 ML VIAL IV ONE (11:42)
[2017-05-06] MEDS ORDERED: MORPHINE 2 MG/1 ML SYRINGE IV ONE (12:02)
[2017-05-06 12:13] LABS: Basophils % 0.5 % (0.0-0.8); Eosinophils # 0.3 10*3/uL (0.0-0.87); Eosinophils % 6.9 % (0.00-10.9); Hematocrit 30.1 VOL% (42.0-52.0); Hemoglobin 9.4 GM/DL (14.0-18.0); Immature Granulocytes % 0.8 %; Immature Granulocytes Absolute 0.03 #; Lymphocytes # 0.8 10*3/uL (1.4-4.0); Lymphocytes % 19.6 % (21.2-54.2); Mean Corpuscular HGB Conc 31.2 GM/DL (32-36); Mean Corpuscular Hemoglobin 24 PG (27-34); Mean Corpuscular Volume 77.8 FL (87-102); Mean Platelet Volume 9.8 FL (9.6-12.0); Monocytes # 0.4 10*3/uL (0.11-0.8); Neutrophils # 2.4 10*3/uL (1.4-7.4); Neutrophils % 61.2 % (38.7-73.9); Platelet Count 116 T/CUMM (130-400); Red Blood Count 3.87 MC/CUMM (3.8-5.5); Red Cell Distribution Width 17.6 % (9.3-17.3); White Blood Count 3.9 T/CUMM (4-12)
[2017-05-06] MEDS ORDERED: ALUM/MAG/SIMETH/LIDO VISC 1:1 30 ML BOTTLE PO ONE (12:35)
[2017-05-06] MEDS: OXYBUTYNIN 5 MG TABLET PO SCH ×3 (12:46→20:52)
[2017-05-06] MEDS: oxyCODONE ER 10 MG TABLET PO SCH ×3 (12:46→20:55)
[2017-05-06] MEDS: DOCUSATE SODIUM 100 MG CAPSULE PO SCH ×2 (12:46→13:22)
[2017-05-06] MEDS: FUROSEMIDE 40 MG TABLET PO SCH ×2 (12:46→13:23)
[2017-05-06] MEDS: GABAPENTIN 600 MG TABLET PO SCH ×2 (12:46→13:21)
[2017-05-06] MEDS: RANOLAZINE 500 MG TABLET PO SCH ×3 (12:46→20:56)
[2017-05-06] MEDS: FERROUS SULFATE 325 MG TABLET PO SCH ×3 (12:47→20:52)
[2017-05-06 12:59] LABS: Albumin 2.8 G/DL (3.4-5.0); Bilirubin,Total 0.4 MG/DL (0.2-1.0); Calcium 8.3 MG/DL (8.5-10.1); Magnesium 2.4 MG/DL (1.8-2.4); Osmolality,Calculated 307.8 MOS/KG (273-304); Potassium 4.4 MMOL/L (3.5-5.1); Total Protein 6.1 G/DL (6.4-8.3)
[2017-05-06 16:38] LABS: CKMB % 24.6 %
[2017-05-06 16:41] LABS: Troponin I Only 1.34 NG/ML (0.00-0.045)
[2017-05-06] MEDS: NITROGLYCERIN 2% OINT 1 INCH/GM PACK TOP SCH (18:28)
[2017-05-06 19:27] LABS: CKMB % 25.2 %
[2017-05-06 19:30] LABS: Troponin I Only 2.27 NG/ML (0.00-0.045)
[2017-05-06] MEDS: CITALOPRAM 20 MG TABLET PO SCH (20:51)
[2017-05-06] MEDS: ROSUVASTATIN 20 MG TABLET PO SCH (20:52)
[2017-05-06] MEDS: INSULIN GLARGINE 100 UNIT/ML SUBCUT SCH (20:54)
[2017-05-06] MEDS: METOPROLOL TARTRATE 50 MG TABLET PO SCH (20:56)
[2017-05-06] MEDS: SODIUM CHLORIDE 0.9% 1,000 ML IV SCH (23:26)
[2017-05-07] MEDS: NITROGLYCERIN 2% OINT 1 INCH/GM PACK TOP SCH ×4 (00:07→18:00)
[2017-05-07 06:33] LABS: Basophils % 0.5 % (0.0-0.8); Eosinophils # 0.3 10*3/uL (0.0-0.87); Eosinophils % 7.5 % (0.00-10.9); Hematocrit 27.9 VOL% (42.0-52.0); Hemoglobin 8.5 GM/DL (14.0-18.0); Immature Granulocytes % 0.7 %; Immature Granulocytes Absolute 0.03 #; Lymphocytes # 1.6 10*3/uL (1.4-4.0); Mean Corpuscular HGB Conc 30.5 GM/DL (32-36); Mean Corpuscular Hemoglobin 24 PG (27-34); Mean Corpuscular Volume 79.7 FL (87-102); Mean Platelet Volume 9.7 FL (9.6-12.0); Monocytes # 0.5 10*3/uL (0.11-0.8); Monocytes % 11.2 % (1.7-12.7); Neutrophils # 1.8 10*3/uL (1.4-7.4); Neutrophils % 43.1 % (38.7-73.9); Platelet Count 100 T/CUMM (130-400); Red Cell Distribution Width 18.4 % (9.3-17.3); White Blood Count 4.3 T/CUMM (4-12)
[2017-05-07 07:10] LABS: Calcium 8.2 MG/DL (8.5-10.1); Magnesium 2.3 MG/DL (1.8-2.4); Osmolality,Calculated 288.4 MOS/KG (273-304)
[2017-05-07] MEDS: clonazePAM 0.5 MG TABLET PO PRN ×3 (08:05→22:32)
[2017-05-07] MEDS ORDERED: LIDOCAINE 2% 5 ML VIAL ONE (08:59)
[2017-05-07] MEDS ORDERED: PROPOFOL 200 MG/20 ML VIAL IV ONE (08:59)
[2017-05-07] MEDS: INSULIN REGULAR 100 UNIT/ML SUBCUT SCH ×4 (10:30→22:33)
[2017-05-07] MEDS ORDERED: BISACODYL 5 MG TABLET PO ONE (12:00)
[2017-05-07] MEDS: FUROSEMIDE 40 MG TABLET PO SCH (13:02)
[2017-05-07] MEDS: GABAPENTIN 600 MG TABLET PO SCH (13:02)
[2017-05-07] MEDS: METOPROLOL TARTRATE 50 MG TABLET PO SCH ×2 (13:02→22:30)
[2017-05-07] MEDS: RANOLAZINE 500 MG TABLET PO SCH ×2 (13:02→22:30)
[2017-05-07] MEDS: DILTIAZEM CD 120 MG CAPSULE PO SCH (13:02)
[2017-05-07] MEDS: FERROUS SULFATE 325 MG TABLET PO SCH ×3 (13:03→22:31)
[2017-05-07] MEDS: OXYBUTYNIN 5 MG TABLET PO SCH ×2 (13:03→22:31)
[2017-05-07] MEDS: oxyCODONE ER 10 MG TABLET PO SCH ×2 (13:03→22:31)
[2017-05-07] MEDS: PANTOPRAZOLE 40 MG VIAL IV SCH (13:04)
[2017-05-07] MEDS: DOCUSATE SODIUM 100 MG CAPSULE PO SCH (13:04)
[2017-05-07] MEDS: BISACODYL 10 MG SUPP RECTAL SCH ×2 (15:08→22:33)
[2017-05-07] MEDS ORDERED: POLYETHYLENE GLYCOL POWDER 255 GM BOTTLE PO ONE (18:00)
[2017-05-07] MEDS: SODIUM CHLORIDE 0.9% 1,000 ML IV SCH (18:43)
[2017-05-07] MEDS: CITALOPRAM 20 MG TABLET PO SCH (22:29)
[2017-05-07] MEDS: ROSUVASTATIN 20 MG TABLET PO SCH (22:30)
[2017-05-07] MEDS: INSULIN GLARGINE 100 UNIT/ML SUBCUT SCH (22:33)
[2017-05-08] MEDS: NITROGLYCERIN 2% OINT 1 INCH/GM PACK TOP SCH ×5 (02:23→17:25)
[2017-05-08 05:09] LABS: Basophils % 0.4 % (0.0-0.8); Eosinophils # 0.4 10*3/uL (0.0-0.87); Eosinophils % 7.9 % (0.00-10.9); Hematocrit 27.8 VOL% (42.0-52.0); Hemoglobin 8.6 GM/DL (14.0-18.0); Immature Granulocytes % 0.4 %; Immature Granulocytes Absolute 0.02 #; Lymphocytes # 1.5 10*3/uL (1.4-4.0); Lymphocytes % 28.8 % (21.2-54.2); Mean Corpuscular HGB Conc 30.9 GM/DL (32-36); Mean Corpuscular Hemoglobin 24 PG (27-34); Mean Corpuscular Volume 78.5 FL (87-102); Mean Platelet Volume 9.3 FL (9.6-12.0); Monocytes # 0.5 10*3/uL (0.11-0.8); Monocytes % 10.1 % (1.7-12.7); Neutrophils # 2.7 10*3/uL (1.4-7.4); Neutrophils % 52.4 % (38.7-73.9); Platelet Count 103 T/CUMM (130-400); Red Blood Count 3.54 MC/CUMM (3.8-5.5); Red Cell Distribution Width 17.7 % (9.3-17.3); White Blood Count 5.2 T/CUMM (4-12)
[2017-05-08 05:32] LABS: Calcium 7.7 MG/DL (8.5-10.1); Magnesium 1.9 MG/DL (1.8-2.4); Potassium 3.7 MMOL/L (3.5-5.1)
[2017-05-08] MEDS: INSULIN REGULAR 100 UNIT/ML SUBCUT SCH ×4 (08:00→21:01)
[2017-05-08] MEDS ORDERED: PROPOFOL 200 MG/20 ML VIAL IV ONE (12:23)
[2017-05-08] MEDS ORDERED: LIDOCAINE 2% 5 ML VIAL ONE (12:23)
[2017-05-08] MEDS ORDERED: MAGNESIUM CITRATE 300 ML BOTTLE PO ONE (12:40)
[2017-05-08] MEDS: DILTIAZEM CD 120 MG CAPSULE PO SCH (13:54)
[2017-05-08] MEDS: clonazePAM 0.5 MG TABLET PO PRN (13:54)
[2017-05-08] MEDS: PANTOPRAZOLE 40 MG VIAL IV SCH (13:54)
[2017-05-08] MEDS: RANOLAZINE 500 MG TABLET PO SCH ×2 (13:54→21:00)
[2017-05-08] MEDS: GABAPENTIN 600 MG TABLET PO SCH (13:55)
[2017-05-08] MEDS: FUROSEMIDE 40 MG TABLET PO SCH (13:55)
[2017-05-08] MEDS: DOCUSATE SODIUM 100 MG CAPSULE PO SCH (13:55)
[2017-05-08] MEDS: oxyCODONE ER 10 MG TABLET PO SCH ×2 (13:55→21:00)
[2017-05-08] MEDS: OXYBUTYNIN 5 MG TABLET PO SCH ×2 (13:55→21:01)
[2017-05-08] MEDS: FERROUS SULFATE 325 MG TABLET PO SCH ×3 (13:55→21:01)
[2017-05-08] MEDS: METOPROLOL TARTRATE 50 MG TABLET PO SCH ×2 (13:55→21:01)
[2017-05-08] MEDS: BISACODYL 10 MG SUPP RECTAL SCH ×2 (13:57→21:02)
[2017-05-08 20:20] LABS: Troponin I Only 0.982 NG/ML (0.00-0.045)
[2017-05-08] MEDS: ROSUVASTATIN 20 MG TABLET PO SCH (21:00)
[2017-05-08] MEDS: CITALOPRAM 20 MG TABLET PO SCH (21:01)
[2017-05-08] MEDS: INSULIN GLARGINE 100 UNIT/ML SUBCUT SCH (21:01)
[2017-05-09] MEDS: NITROGLYCERIN 2% OINT 1 INCH/GM PACK TOP SCH ×4 (00:06→18:10)
[2017-05-09 05:57] LABS: Basophils % 0.5 % (0.0-0.8); Eosinophils # 0.4 10*3/uL (0.0-0.87); Eosinophils % 9.2 % (0.00-10.9); Hematocrit 28.1 VOL% (42.0-52.0); Hemoglobin 8.4 GM/DL (14.0-18.0); Immature Granulocytes % 0.7 %; Immature Granulocytes Absolute 0.03 #; Lymphocytes # 1.5 10*3/uL (1.4-4.0); Mean Corpuscular HGB Conc 29.9 GM/DL (32-36); Mean Corpuscular Hemoglobin 24 PG (27-34); Mean Corpuscular Volume 80.5 FL (87-102); Mean Platelet Volume 9.6 FL (9.6-12.0); Monocytes # 0.4 10*3/uL (0.11-0.8); Monocytes % 8.1 % (1.7-12.7); Neutrophils % 46.5 % (38.7-73.9); Platelet Count 101 T/CUMM (130-400); Red Blood Count 3.49 MC/CUMM (3.8-5.5); Red Cell Distribution Width 17.8 % (9.3-17.3); White Blood Count 4.3 T/CUMM (4-12)
[2017-05-09 06:21] LABS: Calcium 8.2 MG/DL (8.5-10.1); Magnesium 1.8 MG/DL (1.8-2.4); Osmolality,Calculated 282.3 MOS/KG (273-304); Potassium 3.7 MMOL/L (3.5-5.1)
[2017-05-09 06:48] LABS: Macrocytosis 2+; Target Cells Slight
[2017-05-09 06:49] LABS: Polychromasia Slight
[2017-05-09] MEDS: INSULIN REGULAR 100 UNIT/ML SUBCUT SCH ×4 (09:09→21:54)
[2017-05-09] MEDS: DILTIAZEM CD 120 MG CAPSULE PO SCH (09:49)
[2017-05-09] MEDS: METOPROLOL TARTRATE 50 MG TABLET PO SCH ×2 (09:50→21:53)
[2017-05-09] MEDS: oxyCODONE ER 10 MG TABLET PO SCH ×2 (09:50→21:53)
[2017-05-09] MEDS: OXYBUTYNIN 5 MG TABLET PO SCH ×2 (09:50→21:54)
[2017-05-09] MEDS: FERROUS SULFATE 325 MG TABLET PO SCH ×3 (09:50→21:53)
[2017-05-09] MEDS: FUROSEMIDE 40 MG TABLET PO SCH (09:50)
[2017-05-09] MEDS: GABAPENTIN 600 MG TABLET PO SCH (09:50)
[2017-05-09] MEDS: DOCUSATE SODIUM 100 MG CAPSULE PO SCH (09:50)
[2017-05-09] MEDS: PANTOPRAZOLE 40 MG VIAL IV SCH (09:51)
[2017-05-09] MEDS: RANOLAZINE 500 MG TABLET PO SCH ×2 (09:51→21:53)
[2017-05-09] MEDS: clonazePAM 0.5 MG TABLET PO PRN ×2 (09:53→21:56)
[2017-05-09] MEDS: BISACODYL 10 MG SUPP RECTAL SCH ×2 (09:54→21:45)
[2017-05-09] MEDS: INSULIN GLARGINE 100 UNIT/ML SUBCUT SCH (21:52)
[2017-05-09] MEDS: CITALOPRAM 20 MG TABLET PO SCH (21:52)
[2017-05-09] MEDS: ROSUVASTATIN 20 MG TABLET PO SCH (21:53)
[2017-05-10] MEDS: NITROGLYCERIN 2% OINT 1 INCH/GM PACK TOP SCH ×3 (02:32→14:31)
[2017-05-10 05:19] LABS: Basophils % 0.6 % (0.0-0.8); Eosinophils # 0.4 10*3/uL (0.0-0.87); Eosinophils % 8.6 % (0.00-10.9); Hematocrit 33.1 VOL% (42.0-52.0); Immature Granulocytes % 0.4 %; Immature Granulocytes Absolute 0.02 #; Lymphocytes # 1.7 10*3/uL (1.4-4.0); Lymphocytes % 34.3 % (21.2-54.2); Mean Corpuscular HGB Conc 30.2 GM/DL (32-36); Mean Corpuscular Hemoglobin 24 PG (27-34); Mean Corpuscular Volume 79.4 FL (87-102); Mean Platelet Volume 10.1 FL (9.6-12.0); Monocytes # 0.3 10*3/uL (0.11-0.8); Neutrophils # 2.6 10*3/uL (1.4-7.4); Neutrophils % 51.1 % (38.7-73.9); Platelet Count 125 T/CUMM (130-400); Red Blood Count 4.17 MC/CUMM (3.8-5.5); Red Cell Distribution Width 17.8 % (9.3-17.3)
[2017-05-10 05:49] LABS: Calcium 8.9 MG/DL (8.5-10.1); Magnesium 1.8 MG/DL (1.8-2.4); Potassium 4.1 MMOL/L (3.5-5.1)
[2017-05-10] MEDS: GABAPENTIN 600 MG TABLET PO SCH (09:44)
[2017-05-10] MEDS: DILTIAZEM CD 120 MG CAPSULE PO SCH (09:44)
[2017-05-10] MEDS: FERROUS SULFATE 325 MG TABLET PO SCH (09:45)
[2017-05-10] MEDS: RANOLAZINE 500 MG TABLET PO SCH (09:45)
[2017-05-10] MEDS: oxyCODONE ER 10 MG TABLET PO SCH (09:45)
[2017-05-10] MEDS: OXYBUTYNIN 5 MG TABLET PO SCH (09:45)
[2017-05-10] MEDS: METOPROLOL TARTRATE 50 MG TABLET PO SCH (09:45)
[2017-05-10] MEDS: DOCUSATE SODIUM 100 MG CAPSULE PO SCH (09:45)
[2017-05-10] MEDS: FUROSEMIDE 40 MG TABLET PO SCH (09:45)
[2017-05-10] MEDS: INSULIN REGULAR 100 UNIT/ML SUBCUT SCH ×2 (09:45→14:31)
[2017-05-10] MEDS: PANTOPRAZOLE 40 MG VIAL IV SCH (09:45)
[2017-05-10] MEDS: clonazePAM 0.5 MG TABLET PO PRN (09:49)
[2017-05-10] MEDS: BISACODYL 10 MG SUPP RECTAL SCH (11:51)
[2017-05-10] MEDS ORDERED: methylPREDNISolone 4 MG TABLET PO SCH ×2 (12:00→13:00)
[2017-05-10 13:19] VITALS: BP 121/57
[2017-05-10] MEDS ORDERED: APIXABAN 2.5 MG TABLET PO SCH (21:00)
[2017-05-11] MEDS ORDERED: ASPIRIN EC 81 MG TABLET PO SCH (09:00)
== END 2017-05-10 14:40 | disposition home or self-care (01) | DRG 377 ==
LOC: N.ED 16:03 → SUATTDRO 19:08 → N.EDINP 19:08 → N.ICU 20:19 → N.TELEN 05-07 19:08
PROVIDERS: ADMIT Hospitalist; ATTEND Pediatrics

== ENCOUNTER 2019-12-20 05:39 | Inpatient (IN) ==
[2019-12-15 11:14] LABS: Basophils % 0.8 % (0.0-0.8); Eosinophils # 0.3 10*3/uL (0.0-0.87); Eosinophils % 5.1 % (0.00-10.9); Hematocrit 40.3 VOL% (42.0-52.0); Hemoglobin 13.6 GM/DL (14.0-18.0); Immature Granulocytes % 0.6 %; Immature Granulocytes Absolute 0.03 #; Lymphocytes # 1.6 10*3/uL (1.4-4.0); Lymphocytes % 31.5 % (21.2-54.2); Mean Corpuscular HGB Conc 33.7 GM/DL (32-36); Mean Corpuscular Volume 86.5 FL (87-102); Monocytes % 8.7 % (1.7-12.7); Neutrophils % 53.3 % (38.7-73.9); Red Blood Count 4.66 MC/CUMM (3.8-5.5); Red Cell Distribution Width 13.1 % (9.3-17.3)
[2019-12-15 11:15] LABS: Platelet Count 75 T/CUMM (130-400)
[2019-12-15 11:24] LABS: INR 1.1; PT Patient Result 11.5 SECS (9.8-11.9); Partial Thromboplastin Time 28.7 SECS (23.9-33.8)
[2019-12-15 11:25] LABS: Apearance,Urine CLEAR (Clear); Bilirubin,Urine Negative (Negative); Blood, Urine Negative (Negative); Glucose,Urine (UA) 50 mg/dL (Negative); Hyaline Casts,Urine 6 /LPF (0-3); Ketones,Urine Negative (Negative); Mucus,Urine Occasional /LPF (Occasional); Nitrite,Urine Negative (Negative); Protein,Urine Negative; RBC,Urine 1 /HPF (0-4); Urine Color Yellow (Yellow); Urine Urobilinogen < 2.0 EU/DL (0.2-1.0)
[2019-12-15 11:26] LABS: Albumin 3.6 G/DL (3.4-5.0); Bilirubin,Total 0.8 MG/DL (0.2-1.0); Calcium 9.5 MG/DL (8.5-10.1)
[2019-12-15 11:42] LABS: Hypochromasia 1+; Ovalocytes Slight; Platelet Estimate Decreased
[2019-12-20] MEDS ORDERED: CLINDAMYCIN INJ 50 ML IV ONE (05:53)
[2019-12-20] MEDS ORDERED: VANCOMYCIN 1,000 MG VIAL ONE (05:53)
[2019-12-20] MEDS ORDERED: VANCOMYCIN INJ 1,000 MG in SODIUM CHLORIDE 0.9% 250 ML IV ONE (06:00)
[2019-12-20] MEDS ORDERED: CLINDAMYCIN INJ 900 MG in PREMIX 1 EACH IV ONE (06:00)
[2019-12-20] MEDS ORDERED: ROPIVACAINE 0.5% 30 ML VIAL ONE (06:13)
[2019-12-20] MEDS ORDERED: LIDOCAINE 1% 5 ML VIAL ONE (06:13)
[2019-12-20] MEDS ORDERED: DEXAMETHASONE 4 MG/1 ML VIAL ONE ×2 (06:13→08:53)
[2019-12-20] MEDS: LACTATED RINGERS 1,000 ML IV SCH ×2 (06:45→09:20)
[2019-12-20] MEDS ORDERED: PROMETHAZINE 25 MG/1 ML VIAL IM PRN (08:28)
[2019-12-20] MEDS ORDERED: MAGNESIUM HYDROXIDE SUSP 30 ML UDCUP PO PRN (08:28)
[2019-12-20] MEDS ORDERED: TEMAZEPAM 7.5 MG CAPSULE PO PRN (08:28)
[2019-12-20] MEDS ORDERED: BISACODYL 10 MG SUPP RECTAL PRN (08:28)
[2019-12-20] MEDS ORDERED: diphenhydrAMINE CAP 25 MG CAPSULE PO PRN (08:28)
[2019-12-20] MEDS ORDERED: NITROGLYCERIN SL 0.4 MG TABLET SL PRN (08:32)
[2019-12-20] MEDS ORDERED: DEXTROSE 50% 25 GM/50 ML VIAL IV PRN (08:34)
[2019-12-20] MEDS ORDERED: GLUCAGON 1 MG VIAL IM PRN (08:34)
[2019-12-20] MEDS ORDERED: SEVOFLURANE 1 UNIT/15 MINUTE INH ONE (08:52)
[2019-12-20] MEDS ORDERED: propofoL 200 MG/20 ML VIAL IV ONE (08:52)
[2019-12-20] MEDS ORDERED: LIDOCAINE 2% 5 ML VIAL ONE (08:52)
[2019-12-20] MEDS ORDERED: PHENYLEPHRINE 1 MG/10 ML SYRINGE IV ONE (08:53)
[2019-12-20] MEDS ORDERED: ETOMIDATE 40 MG/20 ML VIAL IV ONE (08:53)
[2019-12-20] MEDS ORDERED: fentaNYL 100 MCG/2 ML VIAL ONE (08:53)
[2019-12-20] MEDS ORDERED: ACETAMINOPHEN 1,000 MG/100 ML VIAL IV ONE (08:53)
[2019-12-20] MEDS ORDERED: GLYCOPYRROLATE 0.4 MG/2 ML VIAL ONE (08:53)
[2019-12-20] MEDS ORDERED: ROCURONIUM 100 MG/10 ML VIAL IV ONE (08:54)
[2019-12-20] MEDS ORDERED: SUCCINYLCHOLINE 200 MG/10 ML VIAL ONE (08:54)
[2019-12-20] MEDS ORDERED: HYDROmorphone 2 MG/1 ML VIAL ONE (08:54)
[2019-12-20] MEDS ORDERED: ONDANSETRON 4 MG/2 ML VIAL IV PRN (08:55)
[2019-12-20] MEDS: HYDROmorphone 2 MG/1 ML VIAL IV PRN ×2 (08:55→09:30)
[2019-12-20] MEDS ORDERED: INSULIN LISPRO 100 UNIT/ML SUBCUT SCH (09:00)
[2019-12-20] MEDS ORDERED: DOCUSATE SODIUM 100 MG CAPSULE PO SCH (09:00)
[2019-12-20] MEDS ORDERED: MORPHINE 4 MG/1 ML VIAL IV PRN (09:09)
[2019-12-20] MEDS: ASPIRIN EC 81 MG TABLET PO SCH (10:26)
[2019-12-20] MEDS: APIXABAN 5 MG TABLET PO SCH ×2 (10:27→21:50)
[2019-12-20] MEDS: MAGNESIUM OXIDE 400 MG TABLET PO SCH ×2 (10:27→21:50)
[2019-12-20] MEDS: CHOLECALCIFEROL 5,000 UNIT TABLET PO SCH (10:27)
[2019-12-20] MEDS: GABAPENTIN 600 MG TABLET PO SCH ×2 (10:27→21:50)
[2019-12-20] MEDS: PANTOPRAZOLE 40 MG TABLET PO SCH ×2 (10:27→21:50)
[2019-12-20] MEDS: DOCUSATE SODIUM 100 MG CAPSULE PO SCH ×2 (10:27→21:50)
[2019-12-20] MEDS: FERROUS SULFATE 325 MG TABLET PO SCH (10:29)
[2019-12-20] MEDS: busPIRone 5 MG TABLET PO SCH ×2 (10:29→21:50)
[2019-12-20] MEDS: METOPROLOL TARTRATE 25 MG TABLET PO SCH ×2 (10:53→21:50)
[2019-12-20] MEDS: DILTIAZEM CD 120 MG CAPSULE PO SCH (11:00)
[2019-12-20] MEDS: FUROSEMIDE 20 MG TABLET PO SCH (11:00)
[2019-12-20] MEDS: RANOLAZINE 500 MG TABLET PO SCH ×2 (11:01→21:50)
[2019-12-20] MEDS: OXYBUTYNIN 5 MG TABLET PO SCH ×2 (11:01→21:50)
[2019-12-20] MEDS: INSULIN REGULAR 100 UNIT/ML SUBCUT SCH ×5 (11:06→21:50)
[2019-12-20] MEDS: OXYCODONE 15 MG PO SCH ×2 (11:16→21:50)
[2019-12-20] MEDS: INSULIN LISPRO 100 UNIT/ML SUBCUT SCH (11:16)
[2019-12-20] MEDS: oxyCODONE/ACETAMINOPHEN 5-325 MG TABLET PO PRN ×2 (11:17→15:30)
[2019-12-20] MEDS: CLINDAMYCIN INJ 900 MG in PREMIX 1 EACH IV SCH ×2 (14:05→22:40)
[2019-12-20] MEDS: MORPHINE 4 MG/1 ML VIAL IV PRN (17:18)
[2019-12-20 17:42] LABS: Basophils % 0.3 % (0.0-0.8); Eosinophils % 0.1 % (0.00-10.9); Hematocrit 38.6 VOL% (42.0-52.0); Immature Granulocytes % 0.7 %; Immature Granulocytes Absolute 0.08 #; Lymphocytes # 1.4 10*3/uL (1.4-4.0); Lymphocytes % 12.4 % (21.2-54.2); Mean Corpuscular HGB Conc 33.7 GM/DL (32-36); Mean Corpuscular Volume 87.7 FL (87-102); Mean Platelet Volume 9.4 FL (9.6-12.0); Monocytes % 5.1 % (1.7-12.7); Neutrophils % 81.4 % (38.7-73.9); Platelet Count 104 T/CUMM (130-400); Red Cell Distribution Width 13.2 % (9.3-17.3); White Blood Count 11.3 T/CUMM (4-12)
[2019-12-20] MEDS: GLIMEPIRIDE 4 MG TABLET PO SCH (17:45)
[2019-12-20 18:05] LABS: Albumin 3.5 G/DL (3.4-5.0); Bilirubin,Total 0.8 MG/DL (0.2-1.0); Calcium 9.3 MG/DL (8.5-10.1); Osmolality,Calculated 279.5 MOS/KG (273-304); Total Protein 6.9 G/DL (6.4-8.3)
[2019-12-20] MEDS: CITALOPRAM 20 MG TABLET PO SCH (21:50)
[2019-12-20] MEDS: ROSUVASTATIN 20 MG TABLET PO SCH (21:50)
[2019-12-21] MEDS: oxyCODONE/ACETAMINOPHEN 5-325 MG TABLET PO PRN ×3 (01:51→17:22)
[2019-12-21] MEDS: ONDANSETRON 4 MG/2 ML VIAL IV PRN ×2 (01:51→07:22)
[2019-12-21 05:34] LABS: Basophils % 0.4 % (0.0-0.8); Eosinophils # 0.1 10*3/uL (0.0-0.87); Eosinophils % 1.8 % (0.00-10.9); Hematocrit 32.5 VOL% (42.0-52.0); Hemoglobin 10.8 GM/DL (14.0-18.0); Immature Granulocytes % 0.3 %; Immature Granulocytes Absolute 0.02 #; Lymphocytes # 1.7 10*3/uL (1.4-4.0); Lymphocytes % 21.6 % (21.2-54.2); Mean Corpuscular HGB Conc 33.2 GM/DL (32-36); Mean Corpuscular Volume 87.1 FL (87-102); Mean Platelet Volume 9.8 FL (9.6-12.0); Monocytes % 8.3 % (1.7-12.7); Neutrophils % 67.6 % (38.7-73.9); Red Blood Count 3.73 MC/CUMM (3.8-5.5); Red Cell Distribution Width 13.3 % (9.3-17.3)
[2019-12-21 05:52] LABS: Calcium 8.6 MG/DL (8.5-10.1); Osmolality,Calculated 277.2 MOS/KG (273-304)
[2019-12-21 06:00] LABS: Platelet Count 82 T/CUMM (130-400)
[2019-12-21 06:21] LABS: Hypochromasia 1+; Microcytosis Slight; Ovalocytes Few; Platelet Estimate Decreased
[2019-12-21] MEDS: oxyCODONE IR 5 MG TABLET PO PRN (08:05)
[2019-12-21] MEDS: INSULIN REGULAR 100 UNIT/ML SUBCUT SCH ×7 (08:47→22:13)
[2019-12-21] MEDS: INSULIN LISPRO 100 UNIT/ML SUBCUT SCH (08:49)
[2019-12-21] MEDS: MORPHINE 4 MG/1 ML VIAL IV PRN ×2 (08:51→15:01)
[2019-12-21] MEDS ORDERED: CYANOCOBALAMIN 1000 MCG/1 ML VIAL IM SCH (09:00)
[2019-12-21] MEDS: GABAPENTIN 600 MG TABLET PO SCH ×2 (09:07→20:15)
[2019-12-21] MEDS: METOPROLOL TARTRATE 25 MG TABLET PO SCH ×2 (09:08→20:14)
[2019-12-21] MEDS: MAGNESIUM OXIDE 400 MG TABLET PO SCH ×2 (09:08→20:14)
[2019-12-21] MEDS: DOCUSATE SODIUM 100 MG CAPSULE PO SCH ×2 (09:08→20:12)
[2019-12-21] MEDS: RANOLAZINE 500 MG TABLET PO SCH ×2 (09:08→20:16)
[2019-12-21] MEDS: GLIMEPIRIDE 4 MG TABLET PO SCH ×2 (09:08→17:22)
[2019-12-21] MEDS: FERROUS SULFATE 325 MG TABLET PO SCH (09:09)
[2019-12-21] MEDS: PANTOPRAZOLE 40 MG TABLET PO SCH ×2 (09:09→20:16)
[2019-12-21] MEDS: DILTIAZEM CD 120 MG CAPSULE PO SCH (09:11)
[2019-12-21] MEDS: busPIRone 5 MG TABLET PO SCH (09:11)
[2019-12-21] MEDS: FUROSEMIDE 20 MG TABLET PO SCH (09:12)
[2019-12-21] MEDS: CHOLECALCIFEROL 5,000 UNIT TABLET PO SCH (09:13)
[2019-12-21] MEDS: OXYBUTYNIN 5 MG TABLET PO SCH ×2 (09:13→20:12)
[2019-12-21] MEDS: ASPIRIN EC 81 MG TABLET PO SCH (09:13)
[2019-12-21] MEDS: APIXABAN 5 MG TABLET PO SCH ×2 (09:20→20:12)
[2019-12-21] MEDS: LACTULOSE 20 GM/30 ML UDCUP PO PRN (09:20)
[2019-12-21] MEDS: OXYCODONE 15 MG PO SCH ×2 (10:11→20:15)
[2019-12-21] MEDS: CITALOPRAM 20 MG TABLET PO SCH (20:11)
[2019-12-21] MEDS: busPIRone 10 MG TABLET PO SCH (20:11)
[2019-12-21] MEDS: ROSUVASTATIN 20 MG TABLET PO SCH (20:12)
[2019-12-22 06:22] LABS: Basophils % 0.7 % (0.0-0.8); Eosinophils # 0.3 10*3/uL (0.0-0.87); Eosinophils % 5.3 % (0.00-10.9); Hemoglobin 9.6 GM/DL (14.0-18.0); Immature Granulocytes % 0.2 %; Immature Granulocytes Absolute 0.01 #; Lymphocytes # 1.3 10*3/uL (1.4-4.0); Lymphocytes % 22.4 % (21.2-54.2); Mean Corpuscular HGB Conc 33.1 GM/DL (32-36); Mean Corpuscular Volume 90.1 FL (87-102); Mean Platelet Volume 10.2 FL (9.6-12.0); Monocytes % 11.2 % (1.7-12.7); Neutrophils % 60.2 % (38.7-73.9); Red Blood Count 3.22 MC/CUMM (3.8-5.5); Red Cell Distribution Width 13.3 % (9.3-17.3); White Blood Count 5.9 T/CUMM (4-12)
[2019-12-22 06:39] LABS: Platelet Count 52 T/CUMM (130-400)
[2019-12-22 06:59] LABS: Anisocytosis 1+; Platelet Estimate Decreased
[2019-12-22 07:00] LABS: Macrocytosis Slight
[2019-12-22] MEDS: MORPHINE 4 MG/1 ML VIAL IV PRN ×3 (08:00→21:09)
[2019-12-22] MEDS: INSULIN REGULAR 100 UNIT/ML SUBCUT SCH ×7 (08:01→21:26)
[2019-12-22] MEDS: GLIMEPIRIDE 4 MG TABLET PO SCH ×2 (08:01→17:19)
[2019-12-22] MEDS: busPIRone 10 MG TABLET PO SCH ×2 (08:43→21:08)
[2019-12-22] MEDS: DOCUSATE SODIUM 100 MG CAPSULE PO SCH ×2 (08:43→21:08)
[2019-12-22] MEDS: OXYBUTYNIN 5 MG TABLET PO SCH ×2 (08:43→21:08)
[2019-12-22] MEDS: FUROSEMIDE 20 MG TABLET PO SCH (08:43)
[2019-12-22] MEDS: FERROUS SULFATE 325 MG TABLET PO SCH (08:43)
[2019-12-22] MEDS: ASPIRIN EC 81 MG TABLET PO SCH (08:44)
[2019-12-22] MEDS: RANOLAZINE 500 MG TABLET PO SCH ×2 (08:44→21:08)
[2019-12-22] MEDS: DILTIAZEM CD 120 MG CAPSULE PO SCH (08:44)
[2019-12-22] MEDS: PANTOPRAZOLE 40 MG TABLET PO SCH ×2 (08:44→21:08)
[2019-12-22] MEDS: MAGNESIUM OXIDE 400 MG TABLET PO SCH ×2 (08:44→21:08)
[2019-12-22] MEDS: oxyCODONE IR 5 MG TABLET PO PRN (08:44)
[2019-12-22] MEDS: METOPROLOL TARTRATE 25 MG TABLET PO SCH ×2 (08:45→21:09)
[2019-12-22] MEDS: LACTULOSE 20 GM/30 ML UDCUP PO PRN (08:45)
[2019-12-22] MEDS: APIXABAN 5 MG TABLET PO SCH (08:45)
[2019-12-22] MEDS: CHOLECALCIFEROL 5,000 UNIT TABLET PO SCH (08:45)
[2019-12-22] MEDS: GABAPENTIN 600 MG TABLET PO SCH ×2 (08:45→21:07)
[2019-12-22] MEDS: INSULIN LISPRO 100 UNIT/ML SUBCUT SCH (08:46)
[2019-12-22] MEDS: OXYCODONE 15 MG PO SCH (10:06)
[2019-12-22] MEDS: oxyCODONE/ACETAMINOPHEN 5-325 MG TABLET PO PRN ×2 (13:18→18:12)
[2019-12-22] MEDS: ROSUVASTATIN 20 MG TABLET PO SCH (21:08)
[2019-12-22] MEDS: CITALOPRAM 20 MG TABLET PO SCH (21:08)
[2019-12-22] MEDS: APIXABAN 2.5 MG TABLET PO SCH (21:08)
[2019-12-23] MEDS: oxyCODONE IR 5 MG TABLET PO PRN ×2 (00:22→08:28)
[2019-12-23] MEDS: OXYCODONE 15 MG PO SCH ×2 (01:47→09:17)
[2019-12-23] MEDS: oxyCODONE/ACETAMINOPHEN 5-325 MG TABLET PO PRN ×2 (03:51→11:41)
[2019-12-23] MEDS: GLIMEPIRIDE 4 MG TABLET PO SCH (07:50)
[2019-12-23] MEDS: INSULIN REGULAR 100 UNIT/ML SUBCUT SCH ×4 (07:50→11:51)
[2019-12-23] MEDS: LACTULOSE 20 GM/30 ML UDCUP PO PRN (08:26)
[2019-12-23] MEDS: busPIRone 10 MG TABLET PO SCH (08:27)
[2019-12-23] MEDS: METOPROLOL TARTRATE 25 MG TABLET PO SCH (08:27)
[2019-12-23] MEDS: RANOLAZINE 500 MG TABLET PO SCH (08:27)
[2019-12-23] MEDS: ASPIRIN EC 81 MG TABLET PO SCH (08:27)
[2019-12-23] MEDS: CHOLECALCIFEROL 5,000 UNIT TABLET PO SCH (08:27)
[2019-12-23] MEDS: MAGNESIUM OXIDE 400 MG TABLET PO SCH (08:27)
[2019-12-23] MEDS: INSULIN LISPRO 100 UNIT/ML SUBCUT SCH (08:27)
[2019-12-23] MEDS: PANTOPRAZOLE 40 MG TABLET PO SCH (08:27)
[2019-12-23] MEDS: FERROUS SULFATE 325 MG TABLET PO SCH (08:27)
[2019-12-23] MEDS: GABAPENTIN 600 MG TABLET PO SCH (08:28)
[2019-12-23] MEDS: APIXABAN 2.5 MG TABLET PO SCH (08:28)
[2019-12-23] MEDS: DOCUSATE SODIUM 100 MG CAPSULE PO SCH (08:28)
[2019-12-23] MEDS: OXYBUTYNIN 5 MG TABLET PO SCH (08:28)
[2019-12-23] MEDS: DILTIAZEM CD 120 MG CAPSULE PO SCH (08:28)
[2019-12-23] MEDS: FUROSEMIDE 20 MG TABLET PO SCH (08:29)
[2019-12-23 11:23] VITALS: BP 116/50
== END 2019-12-23 12:48 | disposition swing bed (61) | DRG 470 ==
LOC: N.OR 05:39 → N.SDSINP 05:40 → N.3E 10:04
PROVIDERS: ADMIT Orthopaedic Surgery; ATTEND Orthopaedic Surgery